=== PATIENT | female | born 1990 | race Caucasian/White ===

== ENCOUNTER 2017-09-24 14:17 | Inpatient (IN) | payer OTHER ==
[~2017-09-24] VITALS: Ht 152.4 cm; Wt 94.0 kg
[~2017-09-24 14:17] MED LIST: CELEBREX; CELECOXIB200 MG PO; DOXEPIN HCL25 MG PO; NAPROXEN500 MG PO; PHENDIMETRAZIN105 MG PO; VENTOLIN HFA18 GM INH
--- NOTE | 2017-09-25 08:13 | PR ---
[facility] [address] [facility] [place], [place] [address] Signed Progress Notes IP Datetime Report Generated by CPN: 09/25/2017 08:13 PROGRESS NOTES: [id number] Impression: Normal progression of labor Procedures: Artificial ROM Plan: Continue present management; Anticipate Vaginal Delivery Informed Consent Obtain: Induction of Labor VITAL SIGNS: [id number] Vital Signs: Reviewed; Within Normal Limits VS Notable Details: No severe range BPs EXAM: [id number] Dilatation: 3.0 Effacement: 75 Station: -2 Uterine Contractions: irregular MEMBRANES: [id number] Pooling: Negative Membrane Status: Ruptured Amniotic Fluid Color: Clear ROM Note: KATHERINE without difficulty, head well applied Comments: Beginning to get more uncomfortable, would like Epidural later Fetus A: [id number] FHR Baseline: 120 Variability: Moderate 6-25bpm Accelerations: 15X15 Decelerations: None FHR Category: Category I Presentation: Vertex Comments on Fetus A: No evidence of metabolic acidosis Fetus B: [id number] Signing Physician: Grupo Rivas MD Copies: ~ *Electronically Signed* 09/25/17 0813 GRUPO RIVAS MD PATIENT NAME: MARCO A DAVID PROGRESS NOTE DATE OF : 88 PHYSICIAN: GRUPO RIVAS MD RPT #: [id number] REPORT IS CONFIDENTIAL AND NOT TO BE RELEASED WITHOUT AUTHORIZATION
--- NOTE | 2017-09-25 12:07 | PR ---
[facility] [address] [facility] [place], [place] [address] Signed Progress Notes IP Datetime Report Generated by CPN: 09/25/2017 12:07 PROGRESS NOTES: [id number] Impression: Normal progression of labor Procedures: Artificial ROM Plan: Continue present management; Anticipate Vaginal Delivery Informed Consent Obtain: Induction of Labor VITAL SIGNS: [id number] Vital Signs: Reviewed; Within Normal Limits VS Notable Details: No severe range BPs EXAM: [id number] Dilatation: 9.0 Effacement: 95 Station: -1 Uterine Contractions: every 2-3 minues MEMBRANES: [id number] Pooling: Negative Membrane Status: Ruptured Amniotic Fluid Color: Clear ROM Note: KATHERINE without difficulty, head well applied Comments: Tolerating contractions OK with Epidural Fetus A: [id number] FHR Baseline: 120 Variability: Moderate 6-25bpm Accelerations: 15X15 Decelerations: Late FHR Category: Category I Presentation: Vertex Comments on Fetus A: occaisonal late decel but good variability with accelerations Fetus B: [id number] Signing Physician: Bonilla Rivas MD Copies: ~ *Electronically Signed* 09/25/17 1207 BONILLA RIVAS MD PATIENT NAME: MARCO A DAVID PROGRESS NOTE DATE OF : 88 PHYSICIAN: BONILLA RIVAS MD RPT #: [id number] REPORT IS CONFIDENTIAL AND NOT TO BE RELEASED WITHOUT AUTHORIZATION
--- NOTE | 2017-09-25 12:22 | PR ---
[facility] [address] [facility] [place] [place] [address] Signed Progress Notes IP Datetime Report Generated by CPN: 09/25/2017 12:22 PROGRESS NOTES: [id number] Impression: Normal progression of labor Procedures: Artificial ROM Plan: Continue present management Other Plans: Start pushing Informed Consent Obtain: Induction of Labor VITAL SIGNS: [id number] Vital Signs: Reviewed; Within Normal Limits VS Notable Details: No severe range BPs EXAM: [id number] Dilatation: 10.0 Effacement: 100 Station: 0 Uterine Contractions: every 2-3 minues MEMBRANES: [id number] Pooling: Negative Membrane Status: Ruptured Amniotic Fluid Color: Clear ROM Note: KATHERINE without difficulty, head well applied Comments: Beginning to push, Epidural working partially, but patient handling well Fetus A: [id number] FHR Baseline: 120 Variability: Moderate 6-25bpm Accelerations: 15X15 Decelerations: Late FHR Category: Category I Presentation: Vertex Other Presentation: VARUN Comments on Fetus A: occaisonal late decel but good variability with accelerations Fetus B: [id number] Signing Physician: Grupo Rivas MD Copies: ~ *Electronically Signed* 09/25/17 1222 GRUPO RIVAS MD PATIENT NAME: MARCO A DAVID PROGRESS NOTE DATE OF : 88 PHYSICIAN: GRUPO RIVAS MD RPT #: [id number] REPORT IS CONFIDENTIAL AND NOT TO BE RELEASED WITHOUT AUTHORIZATION
--- NOTE | 2017-09-26 12:08 | PR ---
[facility] [address] [facility] [place] [address] Signed PP Progress Notes Datetime Report Generated by CPN: 09/26/2017 12:08 SUBJECTIVE: [id number] Pain: Within normal limits Nausea/Vomiting: Denies Vital Signs: [id number] Vital Signs: Reviewed; Within Normal Limits Notable Details: PP Hgb/Hct = 9.3/27.8 EXAM: [id number] Abdomen/Uterus: Normal Lochia: Normal Extremities: Normal IMPRESSION/PLAN/PROCEDURES: [id number] Impression: Normal progression Plan: Discharge Procedures: None Progress Notes: Doing well, wants to go home today Signing Physician: Bonilla Rivas MD Copies: ~ *Electronically Signed* 09/26/17 1208 BONILLA RIVAS MD PATIENT NAME: MARCO A DAVID PROGRESS NOTE DATE OF : 88 PHYSICIAN: BONILLA RIVAS MD RPT #: [id number] REPORT IS CONFIDENTIAL AND NOT TO BE RELEASED WITHOUT AUTHORIZATION
== END 2017-09-26 13:55 | disposition home or self-care (01) | DRG 775 ==
LOC: FBCO 14:17 → FBC 17:05
PROVIDERS: ADMIT Obstetrics & Gynecology
PROC: 3E033VJ Introduction of Other Hormone into Peripheral Vein, Percutaneous Approach (ICD-10-PCS; principal; 2017-09-25)
PROC: 10E0XZZ Delivery of Products of Conception, External Approach (ICD-10-PCS; principal; 2017-09-25)
PROC: 10907ZC Drainage of Amniotic Fluid, Therapeutic from Products of Conception, Via Natural or Artificial Opening (ICD-10-PCS; principal; 2017-09-25)
PROC: 3E0R3BZ Introduction of Anesthetic Agent into Spinal Canal, Percutaneous Approach (ICD-10-PCS; 2017-09-25)
PROC: 00HU33Z Insertion of Infusion Device into Spinal Canal, Percutaneous Approach (ICD-10-PCS; 2017-09-25)
DX: O13.4 Gestational [pregnancy-induced] hypertension without significant proteinuria, complicating childbirth (principal); Z37.0 Single live birth; Z3A.38 38 weeks gestation of pregnancy; K21.9 Gastro-esophageal reflux disease without esophagitis; O99.62 Diseases of the digestive system complicating childbirth; O69.81X0 Labor and delivery complicated by cord around neck, without compression, not applicable or unspecified; O14.94 Unspecified pre-eclampsia, complicating childbirth
CPT/HCPCS: 01960; 36415; 59025; 80053; 82565; 82570; 84156; 84450; 84520; 84550; 85025; 85027; 99213; J2590; J2795; J7120

== ENCOUNTER 2018-10-02 12:10 | Emergency (ER) | payer OTHER ==
[~2018-10-02] VITALS: Ht 152.4 cm; Wt 93.9 kg
--- OUTSIDE RECORDS SUMMARY | ~2018-10-02 | XMS | Clinical Summary ---
Demographics + + + | Address | [address] | | | [place] [address] | + + + | Home Phone | | + + + | Preferred Language | Unknown | + + + | Marital Status | Unknown | + + + | Episcopalian Affiliation | Unknown | + + + | Race | Unknown | + + + | Ethnic Group | Unknown | + + + Author + + + | Author | [facility] [employer] | + + + | Organization | [facility] [employer] | + + + | Address | Unknown | + + + | Phone | Unavailable | + + + Support +--------+ +---------+ + | Name | Relationship | Address | Phone | +--------+ +---------+ + | One,No | ECON | Unknown | | +--------+ +---------+ + Care Team Providers + +------+ + | Care Early Childhood Associate Name | Role | Phone | + +------+ + PP | Unavailable | + +------+ + Allergies Not on File Current Medications Not on file Active Problems Not on file Social History + +-------+ +--------+------+ | Tobacco [...] on file | | + + + Plan of Treatment + + + + + | Health Maintenance | Due Date | Last Done | Comments | + + + + + | Vaccine: | | | | | Dtap/Tdap/Td (1 - | 9 | | | | Tdap) | | | | + + + + + | Cervical Cancer | | | | | Screening (Pap) | 1 | | | + + + + + | Vaccine: Influenza | | | | | (#1) | 8 | | | + + + + + Results Not on filefrom Last 3 Months"
--- OUTSIDE RECORDS SUMMARY | ~2018-10-02 | XMS | Clinical Summary ---
Demographics + + + | Address | [address] | | | [place] [address] | + + + | Home Phone | | + + + | Preferred Language | Unknown | + + + | Marital Status | Unknown | + + + | Presybeterian Affiliation | Unknown | + + + | Race | Unknown | + + + | Ethnic Group | Unknown | + + + Author + + + | Author | [facility] [employer] | + + + | Organization | [facility] [employer] | + + + | Address | Unknown | + + + | Phone | Unavailable | + + + Support +--------+ +---------+ + | Name | Relationship | Address | Phone | +--------+ +---------+ + | One,No | ECON | Unknown | | +--------+ +---------+ + Care Team Providers + +------+ + | Care Temperature Logging Operator Name | Role | Phone | + [...]
--- OUTSIDE RECORDS SUMMARY | ~2018-10-02 | XMS | Clinical Summary ---
Demographics + + + | Address | [address] | | | [place] [address] | + + + | Home Phone | | + + + | Preferred Language | Unknown | + + + | Marital Status | Single | + + + | Sikh Affiliation | Unknown | + + + | Race | Unknown | + + + | Ethnic Group | Unknown | + + + Author + + + | Author | [facility] | | | and [place] | + + + | Organization | [facility] | | | and [place] | + + + | Address | Unknown | + + + | Phone | Unavailable | + + + Support + + +---------+ + | Name | Relationship | Address | Phone | + + +---------+ + | Isabelle David | ECON | Unknown | | + + +---------+ + Care Team Providers + +------+ + | Care Dye Weigher Helper Name | Role | Phone | + +------+ + | Grupo Mario MD | PP | Unavailable | + +------+ + Allergies + + [...] | + + + + + + Current Medications + + +--------+---------+------+------+-------+ | Prescription | Sig. | Disp. | Refills | Star | End | Statu | | | | | | t | Date | s | | | | | | Date | | | + + +--------+---------+------+------+-------+ | 27-0.8 mg | Take 1 tablet by | | | | | Activ | | multivitamin tablet | mouth Daily. | | | | | e | + + +--------+---------+------+------+-------+ | predniSONE | Take 10 mg by mouth | | | | | Activ | | (DELTASONE) 10 mg | Daily. | | | | | e | | tablet | | | | | | | + + +--------+---------+------+------+-------+ | ranitidine | Take 25 mg by mouth | | | | | Activ | | (ZANTAC) 25 MG | 2 times daily. | | | | | e | | effervescent tablet | | | | | | | + + +--------+---------+------+------+-------+ | | Take 1-2 tablets by | 42 | 0 | 09/1 | | Activ | | HYDROcodone-acetamin | mouth every 4 hours | tablet | | 8/20 | | e | | ophen (NORCO) 5-325 | as needed for Pain. | | | 14 | | | | mg per tablet | | | | | | | + + +--------+---------+------+------+-------+ Active Problems + + + | Problem | Noted Date | + + + | Delivery normal | 03/20/2014 | + + + | Rheumatoid arthritis (HCC) | 03/20/2014 | + + + Family History + + [...] Filed Vital Signs + + + + | Vital Sign | Reading | Time Taken | + + + + | Blood Pressure | 137/80 | 03/20/2014799 PDT | + + + + | Pulse | 75 | 03/20/2014799 PDT | + + + + | Temperature | 36 C (96.8 F) | 03/20/2014799 PDT | + + + + | Respiratory Rate | 18 | 03/20/2014799 PDT | + + + + | Oxygen Saturation | 100% | 03/18/2014 2315 PDT | + + + + | Inhaled Oxygen | - | - | | Concentration | | | + + + + | Weight | 82.6 kg (182 lb) | 03/18/20141323 PDT | + + + + | Height | 157.5 cm (5' 2") | 03/18/20141323 PDT | + + + + | Body Mass Index | 33.29 | 03/18/20141323 PDT | + + + + Plan of Treatment [...] Vaccine: Influenza | | | | | (Season Ended) | 9 | | | + + + + + Results Not on filefrom Last 3 Months Insurance + +--------+ +--------+ +---------+ | Payer | Benefi | Subscriber | Type | Phone | Address | | | t Plan | ID | | | | | | / | | | | | | | Group | | | | | + +--------+ +--------+ +---------+ | MEDICAID [place] | MEDICA | [id number] | Medica | [phone] | | | ID | | id | [id number] | | | | [place] | | | | | | | [place] | | | | | + +--------+ +--------+ +---------+ + +--------+ +--------+ + + | Guarantor Name | Accoun | Relation to | Date | Phone | Billing Address | | | t Type | Patient | of | | | | | | | | | | + +--------+ +--------+ + + | MARCO A DAVID | Person | Self [birth year] Home: | [address] | | [place] | [place] | | 1990 | [phone] | [place], [place] | | | [place] | | | [phone] | + +--------+ +--------+ + +
--- OUTSIDE RECORDS SUMMARY | ~2018-10-02 | XMS | Clinical Summary ---
Demographics + + + | Address | [address] | | | [place] [address] | + + + | Home Phone | | + + + | Preferred Language | Unknown | + + + | Marital Status | Single | + + + | Taoist Affiliation | Unknown | + + + | Race | Unknown | + + + | Ethnic Group | Unknown | + + + Author + + + | Author | [facility] | | | and [place] | + + + | Organization | [facility] | | [...] Team Providers + +------+ + | Care Wool Fleece Grader Name | Role | Phone | + [...] +---------+ | MEDICAID [place] | MEDICA | [id number] | Medica | [phone] | | [...] [place] | | 1990 | [phone] | [place], [place] | | | [place] | | | [phone] | [phone] | + +--------+ +--------+ + +
--- OUTSIDE RECORDS SUMMARY | 2018-10-02 12:14 | XMS ---
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 Saad has no Care Guidelines for this patient. Carlos VISIT COUNT (12 MO.) 1 CHRISTY Black TOTAL 1 NOTE: Visits indicate total known visits. ED/UCC VISIT TRACKING (12 MO.) 10/02/2018 12:11 CHRISTY [facility] [place] TYPE: Emergency COMPLAINT: - CHEST PAIN/POSS RIGHT ARM INFECTION/RASH INPATIENT VISIT TRACKING (12 MO.) No inpatient visits to display in this time frame [email or web address]
[2018-10-02] MEDS ORDERED: OMEPRAZOLE20 MG PO (12:32)
--- NOTE | 2018-10-02 15:31 | EKG ---
[facility] [address] [facility] [place] [address] Signed Sinus rhythm with short OK Nonspecific T wave abnormality Abnormal ECG No previous ECGs available Confirmed by TOPHER CAMEJO DO ([id number]) on 10/02/2018 3:31:43 PM Electronically Signed By: TOPHER CAMEJO DO 10/02/18 1531 PATIENT NAME: MARCO A DAVID Electrocardiogram DATE OF : 88 PHYSICIAN: TOPHER CAMEJO DO REPORT #: [id number] REPORT IS CONFIDENTIAL AND NOT TO BE RELEASED WITHOUT AUTHORIZATION
[2018-10-02] MEDS ORDERED: KEFLEX500 MG PO (15:39)
== END 2018-10-02 15:53 | disposition home or self-care (01) ==
LOC: ED 12:10
DX: R07.89 Other chest pain (principal); L03.113 Cellulitis of right upper limb; M06.9 Rheumatoid arthritis, unspecified; Z88.1 Allergy status to other antibiotic agents; Z88.2 Allergy status to sulfonamides; Z79.899 Other long term (current) drug therapy
CPT/HCPCS: 71046; 80053; 84484; 85025; 85379; 93005; 93010; 99283-25

== ENCOUNTER 2020-01-20 15:43 | Inpatient (IN) | payer OTHER ==
[~2020-01-20] VITALS: Ht 154.9 cm; Wt 83.0 kg
--- OUTSIDE RECORDS SUMMARY | ~2020-01-20 | XMS | Encounter Summary ---
Demographics + + + | Address | [address] | | | [place] [address] | + + + | Home Phone | | + + + | Preferred Language | Unknown | + + + | Marital Status | Single | + + + | Mormonism Affiliation | Unknown | + + + | Race | Unknown | + + + | Ethnic Group | Unknown | + + + Author + + + | Author | [facility] | | | and [place] | + + + | Organization | [facility] | | | and [place] | + + + | Address | Unknown | + + + | Phone | Unavailable | + + + Support + + +---------+ + | Name | Relationship | Address | Phone | + + +---------+ + | Isabelle Juarez | ECON | Unknown | | + + +---------+ + Care Team Providers + +------+ + | Care Java Technical Manager Name | Role | Phone | + +------+ + | Sincere Haddad | PCP | | + +------+ + Encounter Details +--------+ + + + + | Date | Type | Department | Care Team | Description | +--------+ + + + + | 08/16/ | Orders Only | [facility] | Sudhir Bowles | Rheumatoid arthritis | | 2020 | | RHEUMATOLOGY [address] | MD [address]ama [address] | of multiple sites | | | | [address] | [address] | with negative | | | | [place] | [place] [address] | rheumatoid factor | | | | [address] | [phone] | (HCC) | | | | [phone] | | | +--------+ + + + + Social History + +-------+ +--------+------+ | Tobacco Use | Types | Packs/Day | Years | Date | | | | | Used | | + +-------+ +--------+------+ | Former Smoker | | | | | + +-------+ +--------+------+ + +---+---+---+ | Smokeless Tobacco: | | | | | Never Used | | | | + +---+---+---+ + + +---------+ + | Alcohol Use | Drinks/Week | oz/Week | Comments | + + +---------+ + | Never | | | | + + +---------+ + + + + + | Alcohol Habits | Answer | Date Recorded | + + + + | How often do you have a drink containing | Never | 08/13/2019 | | alcohol? | | | + + + + | How many drinks containing alcohol do you | Not asked | | | have on a typical day when you are | | | | drinking? | | | + + + + | How often do you have six or more drinks on | Not asked | | | one occasion? | | | + + + + + + + | Sex Assigned at | Date Recorded | | | | + + + | Not on file | | + + + documented as of this encounter Functional Status + + + + | Functional Status | Response | Date of Assessment | + + + + | Are you deaf or do you have serious | No | 03/18/2014 | | difficulty hearing? | | | + + + + | Are you blind or do you have serious | No | 03/18/2014 | | difficulty seeing, even when wearing | | | | glasses? | | | + + + + | Do you have serious difficulty walking or | No | 03/18/2014 | | climbing stairs? (5 years old or older) | | | + + + + | Do you have difficulty dressing or bathing? | No | 03/18/2014 | | (5 years old or older) | | | + + + + | Because of a physical, mental, or emotional | No | 03/18/2014 | | condition, do you have difficulty doing | | | | errands alone such as visiting a doctor's | | | | office or shopping? [15 years old or | | | | older)] | | | + + + + + + + + | Cognitive Status | Response | Date of Assessment | + + + + | Because of a physical, mental, or emotional | No | 03/18/2014 | | condition, do you have serious difficulty | | | | concentrating, remembering, or making | | | | decisions? (5 years old or older) | | | + + + + documented as of this encounter Plan of Treatment Not on filedocumented as of this encounter Procedures + +--------+ + + + | Procedure Name | Priori | Date/Time | Associated Diagnosis | Comments | | | ty | | | | + +--------+ + + + | URVASHI NG | Routin | 08/16/2019 | Rheumatoid | Results for this | | | e | 10:29 AM | arthritis of | procedure are in the | | | | PST | multiple sites with | results section. | | | | | negative rheumatoid | | | | | | factor (HCC) | | + +--------+ + + + | HEPATITIS C AB | Routin | 08/16/2019 | Rheumatoid | Results for this | | | e | 10:29 AM | arthritis of | procedure are in the | | | | PST | multiple sites with | results section. | | | | | negative rheumatoid | | | | | | factor (HCC) | | + +--------+ + + + | SEDIMENTATION RATE | Routin | 08/16/2019 | Rheumatoid | Results for this | | | e | 10:29 AM | arthritis of | procedure are in the | | | | PST | multiple sites with | results section. | | | | | negative rheumatoid | | | | | | factor (HCC) | | + +--------+ + + + | HEPATITIS B CORE AB, | Routin | 08/16/2019 | Rheumatoid | Results for this | | TOTAL | e | 10:29 AM | arthritis of | procedure are in the | | | | PST | multiple sites with | results section. | | | | | negative rheumatoid | | | | | | factor (HCC) | | + +--------+ + + + | HEPATITIS B SURFACE | Routin | 08/16/2019 | Rheumatoid | Results for this | | AG | e | 10:29 AM | arthritis of | procedure are in the | | | | PST | multiple sites with | results section. | | | | | negative rheumatoid | | | | | | factor (HCC) | | + +--------+ + + + | CBC WITH | Routin | 08/16/2019 | Rheumatoid | Results for this | | DIFFERENTIAL | e | 10:29 AM | arthritis of | procedure are in the | | | | PST | multiple sites with | results section. | | | | | negative rheumatoid | | | | | | factor (HCC) | | + +--------+ + + + | C-REACTIVE PROTEIN | Routin | 08/16/2019 | Rheumatoid | Results for this | | | e | 10:29 AM | arthritis of | procedure are in the | | | | PST | multiple sites with | results section. | | | | | negative rheumatoid | | | | | | factor (HCC) | | + +--------+ + + + | COMPREHENSIVE | Routin | 08/16/2019 | Rheumatoid | Results for this | | METABOLIC PANEL | e | 10:29 AM | arthritis of | procedure are in the | | | | PST | multiple sites with | results section. | | | | | negative rheumatoid | | | | | | factor (HCC) | | + +--------+ + + + documented in this encounter Results CBC with Differential (08/16/2019 10:29 AM PST) + + + + + + | Component | Value | Ref Range | Performed | Pathologist | | | | | At | Signature | + + + + + + | WBC | 9.02 | 3.80 - 11.00 | REFERENCE | | | | | K/uL | LAB | | | | | | [facility] | | | | | | LABORATORY | | + + + + + + | Red Blood | 3.98 | 3.70 - 5.10 | REFERENCE | | | Cells | | M/uL | LAB | | | | | | [facility] | | | | | | LABORATORY | | + + + + + + | Hemoglobin | 12.6 | 11.3 - 15.5 | REFERENCE | | | | | g/dL | LAB | | | | | | [facility] | | | | | | LABORATORY | | + + + + + + | Hematocrit | 35.6 | 34.0 - 46.0 % | REFERENCE | | | | | | LAB | | | | | | [facility] | | | | | | LABORATORY | | + + + + + + | MCV | 89.4 | 80.0 - 100.0 fl | REFERENCE | | | | | | LAB | | | | | | [facility] | | | | | | LABORATORY | | + + + + + + | MCH | 31.7 | 27.0 - 34.0 pg | REFERENCE | | | | | | LAB | | | | | | [facility] | | | | | | LABORATORY | | + + + + + + | MCHC | 35.4 | 32.0 - 35.5 | REFERENCE | | | | | g/dL | LAB | | | | | | [facility] | | | | | | LABORATORY | | + + + + + + | RDW-SD | 41.1 | 37 - 53 fl | REFERENCE | | | | | | LAB | | | | | | [facility] | | | | | | LABORATORY | | + + + + + + | Platelet | 165 | 150 - 400 K/uL | REFERENCE | | | Count | | | LAB | | | | | | [facility] | | | | | | LABORATORY | | + + + + + + | MPV | 12.7Comment: NO NORMAL | fl | REFERENCE | | | | RANGE ESTABLISHED | | LAB | | | | | | [facility] | | | | | | LABORATORY | | + + + + + + | Diff Type | AUTOMATED | | REFERENCE | | | | | | LAB | | | | | | [facility] | | | | | | LABORATORY | | + + + + + + | % nRBC | 0.0 | 0 /100WBC | REFERENCE | | | | | | LAB | | | | | | [facility] | | | | | | LABORATORY | | + + + + + + | % | 77.40 | % | REFERENCE | | | Neutrophils | | | LAB | | | | | | [facility] | | | | | | LABORATORY | | + + + + + + | IMMATURE | 0.20 | % | REFERENCE | | | GRANULOCYTE | | | LAB | | | | | | [facility] | | | | | | LABORATORY | | + + + + + + | % | 18.10 | % | REFERENCE | | | Lymphocytes | | | LAB | | | | | | [facility] | | | | | | LABORATORY | | + + + + + + | Monocyte % | 3.80 | % | REFERENCE | | | | | | LAB | | | | | | [facility] | | | | | | LABORATORY | | + + + + + + | Eosinophils | 0.40 | % | REFERENCE | | | % | | | LAB | | | | | | [facility] | | | | | | LABORATORY | | + + + + + + | Basophils % | 0.10 | % | REFERENCE | | | | | | LAB | | | | | | [facility] | | | | | | LABORATORY | | + + + + + + | Neutrophils | 6.98 | 1.90 - 7.40 | REFERENCE | | | , Absolute | | K/uL | LAB | | | | | | [facility] | | | | | | LABORATORY | | + + + + + + | IMMATURE | 0.02Comment: NOTE NEW | 0.00 - 0.07 | REFERENCE | | | GRANS AB | REFERENCE RANGE | K/uL | LAB | | | | | | [facility] | | | | | | LABORAT[facility] | | + + + + + + | Absolute | 1.63 | 1.00 - 3.90 | REFERENCE | | | Lymphocytes | | K/uL | LAB | | | | | | [facility] | | | | | | LABORATORY | | + + + + + + | Absolute | 0.34 | 0.00 - 0.80 | REFERENCE | | | Monocytes | | K/uL | LAB | | | | | | [facility] | | | | | | LABORAT[facility] | | + + + + + + | Eosinophils | 0.04 | 0.00 - 0.50 | REFERENCE | | | , Absolute | | K/uL | LAB | | | | | | [facility] | | | | | | LABORATORY | | + + + + + + | Basophils, | 0.01Comment: Testing | 0.00 - 0.10 | REFERENCE | | | Absolute | performed at [facility];[address] | K/uL | LAB | | | | [address] | | [facility] | | | | [address];[place] [address] | | LABORATORY | | + + + + + + + + | Specimen | + + | Blood | + + + + + + + | Performing | Address | City/State/Zipcode | Phone Number | | Organization | | | | + + + + + | REFERENCE LAB | [address] | [place] | [phone] | | [facility] | [address] | [address] | | | LABORATORY | | | | + + + + + | REFERENCE LAB | [address] | [place] | | | [facility] | [address] | [address] | | | LABORATORY | | | | + + + + + Comprehensive Metabolic Panel (08/16/2019 10:29 AM PST) + + + + + + | Component | Value | Ref Range | Performed | Pathologist | | | | | At | Signature | + + + + + + | Na | 140 | 135 - 145 | REFERENCE | | | | | mmol/L | LAB | | | | | | [facility] | | | | | | LABORATORY | | + + + + + + | K | 3.7 | 3.5 - 4.9 | REFERENCE | | | | | mmol/L | LAB | | | | | | [facility] | | | | | | LABORATORY | | + + + + + + | Cl | 113 (H) | 99 - 109 mmol/L | REFERENCE | | | | | | LAB | | | | | | [facility] | | | | | | LABORATORY | | + + + + + + | CO2 | 19 (L) | 23 - 32 mmol/L | REFERENCE | | | | | | LAB | | | | | | [facility] | | | | | | LABORATORY | | + + + + + + | Anion Gap | 12 | 5 - 20 mmol/L | REFERENCE | | | | | | LAB | | | | | | [facility] | | | | | | LABORATORY | | + + + + + + | Glucose | 88 | 65 - 99 mg/dL | REFERENCE | | | | | | LAB | | | | | | [facility] | | | | | | LABORATORY | | + + + + + + | BUN | 6 (L) | 8 - 25 mg/dL | REFERENCE | | | | | | LAB | | | | | | [facility] | | | | | | LABORATORY | | + + + + + + | Creatinine | 0.5 | 0.50 - 1.00 | REFERENCE | | | | | mg/dL | LAB | | | | | | [facility] | | | | | | LABORATORY | | + + + + + + | BUN/Creatin | 12 | | REFERENCE | | | ine Ratio | | | LAB | | | | | | [facility] | | | | | | LABORATORY | | + + + + + + | Calcium | 9.2 | 8.5 - 10.5 | REFERENCE | | | | | mg/dL | LAB | | | | | | [facility] | | | | | | LABORATORY | | + + + + + + | Protein, | 6.8 | 6.3 - 8.2 g/dL | REFERENCE | | | Total | | | LAB | | | | | | [facility] | | | | | | LABORATORY | | + + + + + + | Albumin | 3.2 (L) | 3.6 - 5.0 g/dL | REFERENCE | | | | | | LAB | | | | | | [facility] | | | | | | LABORATORY | | + + + + + + | Globulin | 3.6 | 1.3 - 4.9 g/dL | REFERENCE | | | | | | LAB | | | | | | [facility] | | | | | | LABORATORY | | + + + + + + | A/G Ratio | 0.9 (L) | 1.0 - 2.4 | REFERENCE | | | | | | LAB | | | | | | [facility] | | | | | | LABORATORY | | + + + + + + | BILIRUBIN, | 0.3 | 0.1 - 1.5 mg/dL | REFERENCE | | | TOTAL | | | LAB | | | | | | [facility] | | | | | | LABORATORY | | + + + + + + | ALK PHOS | 61 | 35 - 115 U/L | REFERENCE | | | | | | LAB | | | | | | [facility] | | | | | | LABORATORY | | + + + + + + | AST | 10 | 10 - 45 U/L | REFERENCE | | | | | | LAB | | | | | | [facility] | | | | | | LABORATORY | | + + + + + + | ALT | 16 | 10 - 65 U/L | REFERENCE | | | | | | LAB | | | | | | [facility] | | | | | | LABORATORY | | + + + + + + | Estimated | >60Comment: GFR <60: | >60 | REFERENCE | | | GFR | CHRONIC KIDNEY DISEASE, | mL/min/1.73m2 | LAB | | | | IF FOUND OVER A 3 MONTH | | [facility] | | | | PERIOD.GFR <15: KIDNEY | | LABORATORY | | | | FAILURE.FOR | | | | | | AMERICANS, MULTIPLY THE | | | | | | CALCULATED GFR BY | | | | | | 1.210.This eGFR is | | | | | | calculated using the | | | | | | MDRD IDMS traceable | | | | | | equation.Testing | | | | | | performed at [facility];[address] | | | | | | [facility] | | | | | | [facility];[place] [address] | | | | | | | | | | + + + + + + + + | Specimen | + + | Blood | + + + + + + + | Performing | Address | City/State/Zipcode | Phone Number | | Organization | | | | + + + + + | REFERENCE LAB | [address] [place] [address] | [place] | [phone] | | [facility] | [address] | [address] | | | LABORATORY | | | | + + + + + | REFERENCE LAB | [address] [place] [address] | [place] | | | [facility] | [address] | [address] | | | LABORATORY | | | | + + + + + Sedimentation Rate (08/16/2019 10:29 AM PST) + + + + + + | Component | Value | Ref Range | Performed | Pathologist | | | | | At | Signature | + + + + + + | ESR | 26 (H)Comment: Testing | 0 - 20 mm/Hr | REFERENCE | | | | performed at [facility];[address] | | LAB | | | | [place] | | [facility] | | | | [address];[place] [address] | | LABORATORY | | + + + + + + + + | Specimen | + + | Blood | + + + + + + + | Performing | Address | City/State/Zipcode | Phone Number | | Organization | | | | + + + + + | REFERENCE LAB | [address] [place], [place] [address] | [place] | [phone] | | [facility] | [address] | [address] | | | LABORATORY | | | | + + + + + | REFERENCE LAB | [address] [facility] | [place], [place] | | | [facility] | [address] | [address] | | | LABORATORY | | | | + + + + + C-Reactive Protein (08/16/2019 10:29 AM PST) + + + + + + | Component | Value | Ref Range | Performed | Pathologist | | | | | At | Signature | + + + + + + | CRP | 0.7 (H)Comment: Testing | <0.5 mg/dL | REFERENCE | | | | performed at [facility];[address] | | LAB | | | | [place] | | [facility] | | | | [address];[place] [address] | | LABORATORY | | + + + + + + + + | Specimen | + + | Blood | + + + + + + + | Performing | Address | City/State/Zipcode | Phone Number | | Organization | | | | + + + + + | REFERENCE LAB | [address] [facility] | [place] | [phone] | | [facility] | [address] | [address] | | | LABORATORY | | | | + + + + + | REFERENCE LAB | [address] [facility] | [place], [place] | | | [facility] | [address] | [address] | | | LABORATORY | | | | + + + + + Hepatitis C Ab (08/16/2019 10:29 AM PST) + + + + + + | Component | Value | Ref Range | Performed | Pathologist | | | | | At | Signature | + + + + + + | HCV Ab | NON REACTIVEComment: | NR | REFERENCE | | | | Absence of Hepatitis C | | LAB | | | | antibody suggests no | | [facility] | | | | past Hepatitis C virus | | LABORATORY | | | | infection. Since | | | | | | antibody development may | | | | | | be delayed up to 6 | | | | | | months after | | | | | | infection,retesting may | | | | | | be indicated.Testing | | | | | | performed at [facility];[address] | | | | | | [facility] | | | | | | Blvd;[place] [address] | | | | | | | | | | + + + + + + + + | Specimen | + + | Blood | + + + + + + + | Performing | Address | City/State/Zipcode | Phone Number | | Organization | | | | + + + + + | REFERENCE LAB | [address] [place] [address] | [place], [place] | [phone] | | [facility] | [address] | [address] | | | LABORATORY | | | | + + + + + | REFERENCE LAB | [address] [place] [address] | [place], [place] | | | [facility] | [address] | [address] | | | LABORATORY | | | | + + + + + Hepatitis B Surface Ag (08/16/2019 10:29 AM PST) + + + + + + | Component | Value | Ref Range | Performed | Pathologist | | | | | At | Signature | + + + + + + | Hepatitis B | NON REACTIVEComment: | NR | REFERENCE | | | Surface Ag | Testing performed at | | LAB | | | | [facility];[address] [facility] | | [facility] | | | | Blvd;[place] [address] | | LABORATORY | | + + + + + + + + | Specimen | + + | Blood | + + + + + + + | Performing | Address | City/State/Zipcode | Phone Number | | Organization | | | | + + + + + | REFERENCE LAB | [address] [facility] | [place] | [phone] | | [facility] | [address] | [address] | | | LABORATORY | | | | + + + + + | REFERENCE LAB | [address] [facility] | [place], [place] | | | [facility] | [address] | [address] | | | LABORATORY | | | | + + + + + Hepatitis B Core Ab, Total (08/16/2019 10:29 AM PST) + + + + + + | Component | Value | Ref Range | Performed | Pathologist | | | | | At | Signature | + + + + + + | Hepatitis B | NON REACTIVEComment: | NR | REFERENCE | | | Core Ab | Testing performed at | | LAB | | | Total | [facility];[address] [facility] | | [facility] | | | | Blvd;[place] [address] | | LABORATORY | | + + + + + + + + | Specimen | + + | Blood | + + + + + + + | Performing | Address | City/State/Zipcode | Phone Number | | Organization | | | | + + + + + | REFERENCE LAB | [address] [facility] | [place] | [phone] | | [facility] | [address] | [address] | | | LABORATORY | | | | + + + + + | REFERENCE LAB | [address] [facility] | [place], [place] | | | [facility] | [address] | [address] | | | LABORATORY | | | | + + + + + Quantiferon Gold (08/16/2019 10:29 AM PST) + + + + + + | Component | Value | Ref Range | Performed | Pathologist | | | | | At | Signature | + + + + + + | QUANTIFERON | (See Below)Comment: The | | REFERENCE | | | .CRITERIA | QuantiFERON-TB Gold Plus | | LAB | | | | result is determined by | | [facility] | | | | subtractingthe Nil | | LABORATORY | | | | value from either TB | | | | | | antigen (Ag) tube. The | | | | | | mitogen tubeserves as a | | | | | | control for the test. | | | | + + + + + + | TB 1 | 0.10 | IU/mL | REFERENCE | | | Antigen | | | LAB | | | | | | [facility] | | | | | | LABORATORY | | + + + + + + | TB 2 | 0.10 | IU/mL | REFERENCE | | | Antigen | | | LAB | | | | | | [facility] | | | | | | LABORATORY | | + + + + + + | NIL | 0.09 | IU/mL | REFERENCE | | | | | | LAB | | | | | | [facility] | | | | | | LABORATORY | | + + + + + + | Mitogen | 5.06 | IU/mL | REFERENCE | | | | | | LAB | | | | | | [facility] | | | | | | LABORATORY | | + + + + + + | Quantiferon | NegativeComment: The | Negative | REFERENCE | | | TB Gold | specimen received for | | LAB | | | | QuantiFERON testing was | | [facility] | | | | incubated by theordering | | LABORATORY | | | | institution. Specific | | | | | | procedures outlined in | | | | | | ourDirectory of Services | | | | | | and in the package | | | | | | insert for the | | | | | | QuantiFERONGold (In | | | | | | Tube) test must be | | | | | | followed to enable for | | | | | | proper stimulationof | | | | | | cells for the production | | | | | | of interferon | | | | | | gamma.Testing performed | | | | | | at [facility], [address] | | | | | [address], [facility] [address], [facility] | | | | | | [address] | | | | + + + + + + + + | Specimen | + + | Blood | + + + + + + + | Performing | Address | City/State/Zipcode | Phone Number | | Organization | | | | + + + + + | REFERENCE LAB | [address] [place] [address] | [place], [place] | [phone] | | [facility] | [address] | [address] | | | LABORATORY | | | | + + + + + | REFERENCE LAB | [address] [place] [address] | [place], [place] | | | [facility] | [address] | [address] | | | LABORATORY | | | | + + + + + documented in this encounter Visit Diagnoses + + | Diagnosis | + + | Rheumatoid arthritis of multiple sites with negative rheumatoid factor (HCC) | + + documented in this encounter"
--- OUTSIDE RECORDS SUMMARY | ~2020-01-20 | XMS | Encounter Summary ---
Demographics + + + | Address | [address] | | | [place] [address] | + + + | Home Phone | | + + + | Preferred Language | Unknown | + + + | Marital Status | Single | + + + | Synagogue Affiliation | Unknown | + + + | Race | Unknown | + + + | Ethnic Group | Unknown | + + + Author + + + | Author | [facility] | | | and Litana | + + + | Organization | [facility] | | | and Litana [...] Team Providers + +------+ + | Care Foreign Agent Name | Role | Phone | + +------+ + | Grupo Mario MD | PCP | | + +------+ + Reason for Referral Evaluate & Treat (Routine) +--------+ + + + + + | Status | Reason | Specialty | Diagnoses / | Referred By | Referred To | | | | | Procedures | Contact | Contact | +--------+ + + + + + | Closed | Specialty | | Diagnoses | Trevor, | | | | Services | Services / | Encounter | Ruperto Alcazar MD | | | | Required | | for breast | [id number] | | | | | and | feeding | [place] | | | | | | counseling | [place] | | | | | | | [place], | | | | | | | [place] [address] | | | | | | | Phone: | | | | | | | [phone] | | | | | | | Fax: | | | | | | | [phone] | | +--------+ + + + + + (Routine) +--------+ + + + + + | Status | Reason | Specialty | Diagnoses / | Referred By | Referred To | | | | | Procedures | Contact | Contact | +--------+ + + + + + | Closed | Specialty | Obstetrics | Diagnoses | Trevor, | | | | Services | and | Encounter | Ruperto Alcazar MD | | | | Required | Gynecology | for breast | [address] | | | | | | feeding | [place] | | | | | | counseling | [place] | | | | | | | [place] | | | | | | | [place] [address] | | | | | | | Phone: | | | | | | | [phone] | | | | | | | Fax: | | | | | | | [phone] | | +--------+ + + + + + Reason for Visit Auth/Cert +--------+--------+ + + + + | Status | Reason | Specialty | Diagnoses / | Referred By | Referred To | | | | | Procedures | Contact | Contact | +--------+--------+ + + + + | Closed | | | | | | +--------+--------+ + + + + Encounter Details +--------+ + + + + | Date | Type | Department | Care Team | Description | +--------+ + + + + | 03/18/ | Hospital | [facility] | [facility], | Encounter for breast | | 2013 - | Encounter | [facility] | [address] | feeding counseling | | | | [address] | [place], [place] | (Primary Dx) | | 03/20/ | | [place], [place] | [address] | | | 2013 | | [address] | | | | | | [phone] | Ruperto Gibson, | | | | | | [address] | | | | | | [place] | | | | | | [place] [address] | | | | | | [phone] | | | | | | | | +--------+ + + + + Social History + +-------+ +--------+------+ | Tobacco Use | Types | Packs/Day | Years | Date | | | | | Used | | + +-------+ +--------+------+ | Never Assessed | | | | | + +-------+ +--------+------+ + + + | Sex Assigned at | Date Recorded | | | | + + + | Not on file | | + + + documented as of this encounter Last Filed Vital Signs + + + + + | Vital Sign | Reading | Time Taken | Comments | + + + + + | Blood Pressure | 137/80 | 03/20/2014 8:00 AM | | | | | PDT | | + + + + + | Pulse | 75 | 03/20/2014 8:00 AM | | | | | PDT | | + + + + + | Temperature | 36 C (96.8 F) | 03/20/2014 8:00 AM | | | | | PDT | | + + + + + | Respiratory Rate | 18 | 03/20/2014 8:00 AM | | | | | PDT | | + + + + + | Oxygen Saturation | 100% | 03/18/2014 11:15 PM | | | | | PDT | | + + + + + | Inhaled Oxygen | - | - | | | Concentration | | | | + + + + + | Weight | 82.6 kg (182 lb) | 03/18/2014 1:24 PM | | | | | PDT | | + + + + + | Height | 157.5 cm (5' 2") | 03/18/2014 1:24 PM | | | | | PDT | | + + + + + | Body Mass Index | 33.29 | 03/18/2014 1:24 PM | | | | | PDT | | + + + + + documented in this encounter Functional Status + + + [...] + + documented as of this encounter Discharge Summaries Grupo Mario MD - 03/20/2014 7:03 AM PDT Obstetric Discharge summary | Name Socorro Juarez : 1990 Admitted 03/18/2014 13:20 Discharge date: 03/20/2014 PCP Grupo Mario Admission dx No admission diagnoses for hospital encounter. MIGNON 03/26/2014, Alternate MIGNON Entry Delivered by RUPERTO GIBSON , Vaginal, Spontaneous Delivery Information for the patient's : Shakira Juarez [[id number]] Delivery Date: 03/18/2014 Delivery Time: 2108 Baby: Shakira Juarez Sex: male Weight: 7 lb 9.8 oz (3453 g) Height: 21.5" Head circumference: 35.6 cm APGARS One minute Five minutes Ten minutes Totals: 8 9 Anesthesia Epidural Lacerations None Discharged Condition: fair Diet: regular diet and Regular Discharge Medications: Current Discharge Medication List START taking these medications Details HYDROcodone-acetaminophen (NORCO) 5-325 mg per tablet Take 1-2 tablets by mouth every 4 abhi rs as needed for Pain. Qty: 42 tablet, Refills: 0 CONTINUE these medications which have NOT CHANGED Details predniSONE (DELTASONE) 10 mg tablet Take 10 mg by mouth Daily. 27-0.8 mg multivitamin tablet Take 1 tablet by mouth Daily. ranitidine (ZANTAC) 25 MG effervescent tablet Take 25 mg by mouth 2 times daily. Rh Immune globulin given: not applicable Rubella vaccine given: no Discharge Date: 03/20/2014 Plan: Patient will continue with prednisone 15 mg daily. She will us hydrocodone prn for RA pain, L shoulder, wrists, hands bilaterally. Follow-up follow up in 1 week in clinic to assess pain levels, anticipated flare of RA. Electronically signed: Grupo Mario MD 03/20/2014 7:03 documented in thi s encounter Discharge Instructions Instructions Koki Bush RN - 03/20/2014Formatting of this note might be different fr om the original. Going home after your delivery Discharge information for moms Take care of yourself Get plenty of rest, and don t be afraid to put a sign on the door saying, Mother an d baby sleeping please come back later. Unplug the phone if you have to. Since you ll be up several times a night feeding your baby, you ll need all the rest you can get. Pretty much every new mom gets a bit of the blues, but strong shifts in your hormones af ter delivery sometimes result in post- depression. If you can t get done the things you need to get done, including taking care of yourse lf or your baby, let us know. Some new moms can t sleep, or sleep all the time, or think t hey ll never be a good mother. If these or similar feelings seem like they might be gettin g the best of you, call us! You re not crazy (we promise), and help is available. Get a flu shot every flu season, and everyone around your baby should also get a flu tracy t (and be up to date on their Tdap - the tetanus/whooping cough booster vaccine). Don't drive while taking narcotics (like hydrocodone or oxycodone). Watch for constipation (especially with narcotics) - you can use docusate or milk of mag nesia if needed. Watch for signs of infection and blood clots Call us if you get any of the following: Vaginal discharge that increases, instead of decreasing a bit every day Normal bleeding decreases over time; Is bright red for 2-3 days (with clots up to the size of golfballs), then [place]-brown for 3-10 days, then Creamy-yellow for 1-2 weeks Worsening pain, swelling, or unusual odor from your vagina; Worsening pain, swelling, or discharge from your incision; Hard red, warm, or painful spots on your breasts; Fevers, chills, or vomiting; Trouble breathing, chest pain or pressure; swelling, redness, or pain in your legs; Steadily worsening belly pain (periodic cramping pain is normal); Bad headaches, changes in your vision (blurriness, black spots); worsening swelling of y our hands, feet, or face. Give yourself time to heal Nothing in your vagina for 4 weeks after giving (no sex, no tampons) If you had a , don t lift anything heavier than your baby for 4 weeks, and do n t drive for 2 weeks. If you need narcotic pain medication, like oxycodone, hydrocodone, Percocet or Vicodin, don t combine it with alcohol, and don t drive after using it. Stitches in the vaginal dissolve within about 4 weeks - they don't need to be removed. Think carefully about contraception Babies are healthiest if they re born at least a year apart We ll discuss control options at your 6 week post- visit, but you can start u sing a mini pill right away, or even get a Depo shot After a Vaginal After having a baby, your body may be very tired. It can take time to recover from a vagina l delivery. You may stay in the hospital or center from 1 to 4 days. Or, you may only need to stay overnight. In some cases, you may be able to go home the same day. Right After the Delivery Your temperature and blood pressure will be taken until they are stable. A nurse or other [facility] provider will observe you as you rest. You may have afterbirth pains. These are cr amps caused by the uterus shrinking. Sanitary pads are used to absorb the discharge of the u terine lining. To ensure that you aren t bleeding too much, the pad will be checked. And t he firmness of your uterus will be checked. To do this, a nurse will gently push down on you r abdomen. If you had anesthesia, you ll be watched closely until you can feel and move yo ur toes. If you have perineal pain (pain between the vagina and anus), an ice pack can help. [facility] While still in the hospital or center, you ll learn how to hold and feed your baby. You ll also be given tips on care, bathing your baby, and instructi on. If you re not planning to breastfeed, discuss your options with your healthcare provid er. Preparing to Go Home You may be anxious to go home as soon as possible. Before you and your baby go home, a [facility] provider will check to be sure you are healthy enough to take care of your baby and y ourself. You re ready to go home when: You can walk to the bathroom without help. You can eat solid food and swallow pills (if needed). You have no sign of infection or other health problems, including fever. Before leaving the hospital or center, you ll be given written instructions for vita e self-care after vaginal delivery. Be sure to follow these instructions carefully. If you h ave questions or concerns, talk about them now. If You Had Stitches You may have received stitches in the skin near your vagina. The stitches might have closed an episiotomy (an incision that enlarges the opening of the vagina). Or you may have needed stitches to repair torn skin. Either way, your stitches should dissolve within weeks. Until then, you can help reduce discomfort, aid healing, and reduce your risk of infection by andie ping the stitches clean. These tips can help: Gently wipe from front to back after you urinate or have a bowel movement. After wiping, spray warm water on the area. Or you can have a sitz bath. This means sitt ing in a tub with a few inches of water in it. Then pat the area dry or use a hairdryer on a cool setting. Do not use soap or any solution except water on the area. You can take a shower unless told not to. Change sanitary pads at least every 2-[address] cold or heat packs on the area as directed by your doctors or nurses. Keep a thin towel between the pack and your skin. Sit on firm seats so the stitches pull less. Follow-Up Schedule a follow-up exam with your healthcare provider for about 6 weeks after carlos kylie. During this exam, your uterus and vaginal area will be checked. Contact your health care provider if you think you or your baby are having any problems. Call Your Healthcare Provider Right Away If You Have: A fever of 100.4F or higher. Bleeding that requires a new sanitary pad after an hour, or large blood clots. Redness, discharge, or incision pain worse than you had in the hospital. Burning, pain, red streaks, or lumpy areas in your breasts. Cracks, blisters, or blood on your nipples. Burning or pain when you urinate. Nausea or vomiting. Dizziness or fainting. Feelings of extreme sadness or anxiety, or a feeling that you don t want to be with yo ur baby. Abdominal pain that isn t relieved with medication. Vaginal discharge that has a bad odor. No bowel movement for 5 days. Redness, warmth, or pain in the lower leg. [id number] [place] [address]. All rights reserve d. This information is not intended as a substitute for professional medical care. Always fo llow your healthcare professional's instructions. . documented in this encounter Medications at Time of Discharge + + + +---------+ + + | Medication | Sig | Dispensed | Refills | Start | End Date | | | | | | Date | | + + + +---------+ + + | 27-0.8 mg | Take 1 tablet by | | 0 | | | | multivitamin tablet | mouth Daily. | | | | | + + + +---------+ + + | ranitidine | Take 25 mg by mouth | | 0 | | | | (ZANTAC) 25 MG | 2 times daily. | | | | | | effervescent tablet | | | | | | + + + +---------+ + + | | Take 1-2 tablets by | 42 | 0 | 03/20/20 | | | HYDROcodone-acetamin | mouth every 4 hours | tablet | | 14 | 0 | | ophen (NORCO) 5-325 | as needed for Pain. | | | | | | mg per tablet | | | | | | + + + +---------+ + + | predniSONE | Take 10 mg by mouth | | 0 | | | | (DELTASONE) 10 mg | Daily. | | | | 9 | | tablet | | | | | | + + + +---------+ + + documented as of this encounter Progress Notes Grupo Mario MD - 03/20/2014 7:06 AM PDTPostpartum progress note | Date of service: 03/20/2014 Subjective Doing well. Feeding baby via Breast. He was slightly fussy last night and mother feels baby would benefit from pumping and bottle feed. Her L shoulder, wrists, hands bilaterally are m ore painful, requiring hydrocodone for pain. Objective Temp: [36 C (96.8 F)-36.7 C (98.1 F)] 36.5 C (97.7 F) Pulse: [75-91] 77 Resp: [17-18] 18 BP: (115-140)/(59-78) 140/78 mmHg Gen NAD CV No murmur, rub, gallop; regular rhythm. Lungs CTAB Abd U~0, non-tender Ext No cord, no unusual edema. L shoulder with nml ROM, no warmth. Hands, wrists with minim al synovitis. Assessment and plan Doing well. Routine care, discharge to home today. Nexplanon at 4-6 weeks. Yoanyd nue hydrocodone for pain, reassess in 1 week. [ Treatment Team: Attending Provider: Grupo Mario MD; Registered Nurse: Threese rizo RN; Registered Nurse: Jasper Alva, CHRISTI ] Emilia Chen RN - 03/19/2014 11:30 PM PDTReport to jasper barraza to assume care.Electronically deidra d by Emilia Garsia RN at 03/20/2014 3:24 AM Jasper Salamanca RN - 4 11:30 PM PDTAssumed care. Report rec'd from Emilia BARRAZA Emilia Chen RN - 03/19/2014 8:15 PM PDTPt r esting in bed. . In good spirits. No need at this time.Electronically s igned by Emilia Garsia RN at 03/20/2014 3:24 AM Emilia Chen R N - 03/19/2014 7:30 PM PDTReport received by Amberly BARRAZA, assumed care. Mirian Kearney RN - 03/19/20 14 3:24 PM PDTPt is having increased right shoulder pain gave oxycodone which provided some relief. Pt is independent in room nursing well. Mirian Kearney RN - 03/19/2014 12:42 PM PDTPt with increa sed pain to right shoulder related to R/A, RX given, discussed pain medications that are duarte ilable to her, will continue to monitor. Electronically signed by Mirian May RN at 0 03/19/2014 12:42 PM Grupo Torres MD - 03/19/2014 9:25 AM PDTFormatting of this not e might be different from the original. progress note | Date of service: 03/19/2014 Subjective Doing well. Feeding baby via breast. Mother breastfed first baby for 2 months, stopped due to use of procardia for PP hypertension. Feels L shoulder and hands are more painful today t fernandes yesterday, but feels it is related to pushing efforts. Objective Temp: [36 C (96.8 F)-37.2 C (99 F)] 36 C (96.8 F) Pulse: [70-116] 75 Resp: [16-18] 18 BP: (115-169)/(59-86) 115/59 mmHg Gen NAD CV No murmur, rub, gallop; regular rhythm. Lungs CTAB Abd U~0, non-tender Ext No cord, no unusual edema. Joints of wrists, mcp, pip, dip w/o significant warmth, eff usion. Recent Results (from the past 24 hour(s)) RUPTURE OF MEMBRANES Component Value Range Amnisure, ROM Negative Negative TYPE AND SCREEN Component Value Range ABO B Rh Type Positive Antibody Screen Negative CBC NO DIFFERENTIAL Component Value Range WBC 10.1 4.0-11.0 K/uL RBC 3.86 3.70-5.20 M/uL Hgb 11.8 11.5-16.0 g/dL Hct 34.9 34.0-47.0 % MCV 90.4 83.0-101.0 fL MCH 30.7 28.0-35.0 pg MCHC 33.9 32.0-36.0 g/dL RDW 13.5 <15.0 % Platelet Count 125 (*) 140-440 K/uL MPV 9.8 CBC NO DIFFERENTIAL Component Value Range WBC 18.1 (*) 4.0-11.0 K/uL RBC 3.72 3.70-5.20 M/uL Hgb 11.4 (*) 11.5-16.0 g/dL Hct 34.0 34.0-47.0 % MCV 91.3 83.0-101.0 fL MCH 30.6 28.0-35.0 pg MCHC 33.5 32.0-36.0 g/dL RDW 13.5 <15.0 % Platelet Count 133 (*) 140-440 K/uL MPV 10.3 Assessment and plan Doing well. History of RA, controlled with prednisone in (maximum dose of 25 mg d aily, most recently 15 mg daily in the 4 weeks prior to delivery). Patient given hydrocorti sone stress dosing during labor X 1 (50mg), will continue 25 mg IV q 8 hour X 2 additional d oses then resume prednisone at 15 mg daily. Otherwise, Routine care. [ Treatment Team: Attending Provider: Grupo Mario MD; Registered Nurse: Therese rizo RN; Registered Nurse: Mirian May RN ] elissadarriusTherese R N - 03/19/2014 2:41 AM PDTDelivered at 2109, viable infant male over an intact perineum. N B placed on mother's abdomen where he was dried and stimulated. Wet linen removed and repla gene with warm dry linen. Jo Ann Lane RN - 03/18/2014 1:47 PM PDTPatient here c/o leaking fluid, no bloody tracy w per patient. UC's since 1999 last evening (03/18). Amnisure swab done and sent to lab. E FM in place. documente d in this encounter H&P Notes Ruperto Gibson MD - 03/18/2014 5:29 PM PDTAdmit Note S-briefly, Ms. Juarez is a 23-year-old 2 para 1 woman at almost 39 weeks gestation who recently moved from [place], to the [facility], to be closer to family. She hamilton s been seen twice at by Dr. Clement at [facility]. Of note is her past history of rheumatoid arthr itis. She was on high doses of prednisone until recently and was advised by her rheumatolog ist to have steroid coverage during labor. No other problems identified prenatally other th an polypharmacy. Medications she has been on chronically include: Tylenol No. 3, cyclobenza berto, hydroxyzine, prednisone, ranitidine and Zofran. Group B strep culture was negative. Patient began experiencing regular uterine activity la evening and has gradually noted cervical change. She was admitted earlier this afternoon in presumed early active labor. O-VSS Cervix: 4/80%/-2; soft and anterior. heart tones: Category 1 tracing. Uterine contractions: Mild to moderate to palpation, occurring every 2-3 minutes. AROM: Clear A/P-intrauterine at approximately 39 weeks gestation in early active labor. Will cover with high school labor. This may be some risk for abstinence syndrome as it is uncle ar, narcotic it has been exposed to during the . Pediatric service will be made aw are. documented in thi s encounter Miscellaneous Notes Pulmonary Function - [facility] - 03/28/2014 12:00 AM PDT lan of Care - [facility] - 03/28/2014 12:00 AM PD T iscellaneous - [facility] - 03/28/2014 12:00 AM PDT npatient Medication Chart - [facility] - 03/28/2014 12:00 AM PDTElectronically sig logan by Sally Dominguez at 03/28/2014 3:09 PM PDTPlan of Care - Koki Bush RN - 03/20/20 1:00 PM PDTProblem: General Plan of Care (Adult, Obstetrics) Goal: Care Plan Shift Summary & Review . Outcome: Goal Achieved Date Met: 03/20/14 Discharge instructions given to patient, patient states understanding of discharge instruct ions and states readiness to assume self care. lan of Care - Jasper King RN - 03/20/2014 7:42 AM PDTProblem: General Plan of Care (Adult, Obstetrics) Goal: Care Plan Shift Summary & Review . VSS, Pt chronic left shoulder pain controlled with motrin, oxycodone, hydrocodone. Pt very tired d/t fussy baby. Enc to nap with baby during day as possible. lan of Yonatan - Mirian Lai RN - 03/19/2014 3:36 PM PDTProblem: General Plan of Care (Adult, Obstetric s) Goal: Care Plan Shift Summary & Review . Outcome: Progressing Pt is up independently, nursing well, eating and drinking, voiding, continues with right sh oulder pain related to R/A. lan of Care - A belinda PATTY Meyer - 03/19/2014 12:24 PM PDTProblem: General Plan of Care (Adult, Obstetrics ) Goal: Care Plan Shift Summary & Review . This Cm spoke to Socorro to go give her where to go for help information. Socorro was eat ing her lunch with her baby next to her in the bed. Socorro is in the [place] program and knew most of the resources. She has a carseat. Discharge is expected tomorrow. Electronically signed by: PATTY Rodriguez 03/19/2014 12:24 p Note - Natalee Gibson MD - 03/18/2014 9:39 PM PDTDelivery Note Ms. Juarez is a 23-year-old 2, now para 2 woman who is admitted at approximately 3 9 weeks gestation in active labor. She required a continuous lumbar epidural for labor anal gesia and progressed well in active labor. She did require one dose of hydrocortisone durin g her labor, as she was on high-dose prednisone earlier in her because of rheumato id arthritis. After second stage of labor which lasted approximately 15 minutes, she delive red a vigorous 7 pound, 10 ounce male infant with Apgars of 9 and 9 over an intact perineum. A tight nuchal cord was present and reduced on the perineum. Infant was then bulb suction ed on the perineum and shoulders and body followed without difficulty. After delayed cord c lamping, the was handed to the attending nurse who placed the infant skin to skin on the maternal chest. Thereafter there is a normal third stage of labor with appropriate blood loss. Inspection of the placenta revealed a three-vessel umbilical cord and normal placenta morphology. Both mother and infant are doing well in the immediate period and I anticipate a norm al course for both. Dr. Clement her primary care provider will resume care tomorrow. lan of Care - Jo Ann Montano RN - 03/18/2014 6:48 PM PDTProblem: General Plan of Care (Adult, Obstetrics) Goal: Care Plan Shift Summary & Review . Outcome: Not Progressing Patient is tolerating labor well. She is using her Cadd self bolus button every 20-30min f or pain. She has a supportive family at her bedside. documented in this encounter Plan of Treatment + + +--------+ + + | Name | Type | Priori | Associated Diagnoses | Order Schedule | | | | ty | | | + + +--------+ + + | Amb referral to | Outpatient | Routin | Encounter for | 1 Occurrences | | | Referral | e | breast feeding | starting 03/20/2014 | | | | | counseling | until 03/18/2015 | + + +--------+ + + | Ambulatory referral | Outpatient | Routin | Encounter for | 1 Occurrences | | to | Referral | e | breast feeding | starting 03/20/2014 | | | | | counseling | until 03/18/2015 | + + +--------+ + + documented as of this encounter Procedures + +--------+ + + + | Procedure Name | Priori | Date/Time | Associated Diagnosis | Comments | | | ty | | | | + +--------+ + + + | CBC NO DIFFERENTIAL | Routin | 03/19/2014 | | Results for this | | | e | 5:51 AM | | procedure are in the | | | | PDT | | results section. | + +--------+ + + + | CBC NO DIFFERENTIAL | Routin | 03/18/2014 | | Results for this | | | e | 2:36 PM | | procedure are in the | | | | PDT | | results section. | + +--------+ + + + | TYPE AND SCREEN | Routin | 03/18/2014 | | Results for this | | | e | 2:36 PM | | procedure are in the | | | | PDT | | results section. | + +--------+ + + + | RUPTURE OF MEMBRANES | Routin | 03/18/2014 | | Results for this | | | e | 1:46 PM | | procedure are in the | | | | PDT | | results section. | + +--------+ + + + | EXTERNAL LAB: | Routin | 03/10/2014 | | Results for this | | HEMOGLOBIN | e | | | procedure are in the | | | | | | results section. | + +--------+ + + + | ABO RH | Routin | 08/29/2013 | | Results for this | | | e | | | procedure are in the | | | | | | results section. | + +--------+ + + + | ANTIBODY SCREEN | Routin | 07/19/2013 | | Results for this | | | e | | | procedure are in the | | | | | | results section. | + +--------+ + + + documented in this encounter Results CBC no Differential (03/19/2014 5:51 AM PDT) + + + + + + | Component | Value | Ref Range | Performed | Pathologist | | | | | At | Signature | + + + + + + | White Blood | 18.1 (H) | 4.0 - 11.0 K/uL | [facility] | | | Cells | | | [facility] | | | [facility] | [facility] | | | | | [facility] - | | | | | | LABORATORY | | + + + + + + | Red Blood | 3.72 | 3.70 - 5.20 | [facility] | | | Cells | | M/uL | [facility] | | | | | | [facility] | | | | | | [facility] - | | | | | | LABORATORY | | + + + + + + | Hemoglobin | 11.4 (L) | 11.5 - 16.0 | [facility] | | | | | g/dL | [facility] | | | | | | [facility] | | | | | | C[facility] - | | | | | | LABORATORY | | + + + + + + | Hematocrit | 34.0 | 34.0 - 47.0 % | [facility] | | | | | | [facility] | | [facility] | [facility] | | | | | | [facility] - | | | | | | LABORATORY | | + + + + + + | MCV | 91.3 | 83.0 - 101.0 fL | [facility] | | | | | | [facility] | | | [facility] | [facility] | | | | | | [facility] - | | | | | | LABORATORY | | + + + + + + | MCH | 30.6 | 28.0 - 35.0 pg | [facility] | | | | | | [facility] | | | | [facility] | [facility] | | | | | | [facility] - | | | | | | LABORATORY | | + + + + + + | MCHC | 33.5 | 32.0 - 36.0 | [facility] | | | | | g/dL | [facility] | | | | | | [facility] | | | | | | C[facility] - | | | | | | LABORATORY | | + + + + + + | RDW-CV | 13.5 | <15.0 % | [facility] | | | | | [facility] | | | | | | [facility] | | | | | | [facility] - | | | | | | LABORATORY | | + + + + + + | Platelet | 133 (L) | 140 - 440 K/uL | [facility] | | | Count | | | [facility] | | | | | | [facility] | | | | | | [facility] - | | | | | | LABORATORY | | + + + + + + | MPV | 10.3 | fL | [facility] | | | | | | [facility] | | | | | | [facility] | | | | | | CENTER - | | | | | | LABORATORY | | + + + + + + + + | Specimen | + + | Blood | + + + + + + + | Performing | Address | City/State/Zipcode | Phone Number | | Organization | | | | + + + + + | [facility] | [address] | [place] | [phone] | | [facility] | | [id number] | | | - LABORATORY | | | | + + + + + | [facility] | [address] | [place] | | | [facility] | | [id number], [facility] | | | - LABORATORY | | | | + + + + + CBC no Differential (03/18/2014 2:36 PM PDT) + +---------+ + + + | Component | Value | Ref Range | Performed | Pathologist | | | | | At | Signature | + +---------+ + + + | White Blood | 10.1 | 4.0 - 11.0 K/uL | [facility] | | | Cells | | | [facility] | | | | | | [facility] | | | | | | CENTER - | | | | | | LABORATORY | | + +---------+ + + + | Red Blood | 3.86 | 3.70 - 5.20 | [facility] | | | Cells | | M/uL | [facility] | | | | | | MEDICAL | | | | | | CENTER - | | | | | | LABORATORY | | + +---------+ + + + | Hemoglobin | 11.8 | 11.5 - 16.0 | [facility] | | | | | g/dL | [facility] | | | | | | [facility] | | | | | | CENTER - | | | | | | LABORATORY | | + +---------+ + + + | Hematocrit | 34.9 | 34.0 - 47.0 % | [facility] | | | | [facility] | | | | | | [facility] - | | | | | | LABORATORY | | + +---------+ + + + | MCV | 90.4 | 83.0 - 101.0 fL | [facility] | [facility] | | | | | | [facility] - | | | | | | LABORATORY | | + +---------+ + + + | MCH | 30.7 | 28.0 - 35.0 pg | [facility] | | | | | | [facility] | | | | | | [facility] | | | | | | CENTER - | | | | | | LABORATORY | | + +---------+ + + + | MCHC | 33.9 | 32.0 - 36.0 | [facility] | | | | | g/dL | [facility] | | | | | | [facility] | | | | | | CENTER - | | | | | | LABORATORY | | + +---------+ + + + | RDW-CV | 13.5 | <15.0 % | [facility] | | | | | [facility] | | | | | | [facility] | | | | | | CENTER - | | | | | | LABORATORY | | + +---------+ + + + | Platelet | 125 (L) | 140 - 440 K/uL | [facility] | | | Count | | | [facility] | | | | | | [facility] | | | | | | CENTER - | | | | | | LABORATORY | | + +---------+ + + + | MPV | 9.8 | fL | [facility] | | | | | | [facility] | | | | | | [facility] | | | | | | CENTER - | | | | | | LABORATORY | | + +---------+ + + + + + | Specimen | + + | Blood | + + + + + + + | Performing | Address | City/State/Zipcode | Phone Number | | Organization | | | | + + + + + | [facility] | [address] | [place] | [phone] | | [facility] | | [id number] | | | - LABORATORY | | | | + + + + + | [facility] | [address] | [place] | | | [facility] | | [id number] | | | - LABORATORY | | | | + + + + + Type and Screen (03/18/2014 2:36 PM PDT) + + + + + + | Component | Value | Ref Range | Performed | Pathologist | | | | | At | Signature | + + + + + + | ABO | B | | [facility] | | | | | | [facility] | | | | | | MEDICAL | | | | | | CENTER - | | | | | | BLOOD BANK | | + + + + + + | Rh Type | Positive | | [facility] | | | | | | [facility] | | [facility] | | | MEDICAL | | | | | | CENTER - | | | | | | BLOOD BANK | | + + + + + + | Antibody | Negative | | [facility] | | | Screen | | | [facility] | | | | | | MEDICAL | | | | | | CENTER - | | | | | | BLOOD BANK | | + + + + + + + + | Specimen | + + | Blood specimen | | (specimen) | + + + + + + + | Performing | Address | City/State/Zipcode | Phone Number | | Organization | | | | + + + + + | [facility] | [address] | [place] | | | [facility] | | [address] | | | - BLOOD BANK | | | | + + + + + Rupture of Membranes (03/18/2014 1:46 PM PDT) + + + + + + | Component | Value | Ref Range | Performed | Pathologist | | | | | At | Signature | + + + + + + | Rupture of | Negative | Negative | [facility] | | | | | [facility] | | | Membranes | | | MEDICAL | | | | | | CENTER - | | | | | | LABORATORY | | + + + + + + + + | Specimen | + + | Body Fluid - | | Tracheal syrinx | | (body structure) | + + + + + + + | Performing | Address | City/State/Zipcode | Phone Number | | Organization | | | | + + + + + | [facility] | [address] | [place] | [phone] | | [facility] | | [address] | | | - LABORATORY | | | | + + + + + | [facility] | [address] | [place], [place] | | | [facility] | | [id number] | | | - LABORATORY | | | | + + + + + External Lab: Hemoglobin (03/10/2014) + +-------+ + + + | Component | Value | Ref Range | Performed | Pathologist | | | | | At | Signature | + +-------+ + + + | HGB, | 11.3 | | | | | External | | | | | + +-------+ + + + ABO Rh (08/29/2013) + + + + + + | Component | Value | Ref Range | Performed | Pathologist | | | | | At | Signature | + + + + + + | [facility]OR[facility] | B Positive | | | | | EXTERNAL | | | | | + + + + + + + + | Specimen | + + | Blood specimen | | (specimen) | + + Antibody Screen (07/19/2013) + + + + + + | Component | Value | Ref Range | Performed | Pathologist | | | | | At | Signature | + + + + + + | Antibody | Negative | Negative | | | | Screen, | | | | | | External | | | | | + + + + + + + + | Specimen | + + | Blood specimen | | (specimen) | + + documented in this encounter Visit Diagnoses + + | Diagnosis | + + | Encounter for breast feeding counseling - Primary | + + | Delivery normal Normal delivery | + + | Rheumatoid arthritis (HCC) | + + documented in this encounter Administered Medications + +--------+ + +------+------+ | Medication Order | MAR | Action | Dose | Rate | Site | | | Action | Date | | | | + +--------+ + +------+------+ | calcium carbonate (TUMS) | Given | 03/18/20 | 1,000 mg | | | | chewable tablet 1,000 mg 1,000 | | 14 5:01 | | | | | mg, Oral, EVERY 2 HOURS PRN, | | PM PDT | | | | | Indigestion, Starting 03/18/14 | | | | | | | at 1655 | | | | | | + +--------+ + +------+------+ +---+---+ | | | +---+---+ + +-------+ +--------+---+---+ | docusate sodium (COLACE) | Given | 03/19/20 | 200 mg | | | | capsule 200 mg 200 mg, Oral, | | 14 9:44 | | | | | NIGHTLY, First dose on Tue | | PM PDT | | | | | 03/18/14 at 2330, Hold for loose | | | | | | | stools, | | | | | | + +-------+ +--------+---+---+ +-------+ +--------+---+---+ | Given | 03/19/20 | 200 mg | | | | | 14 1:06 | | | | | | AM PDT | | | | +-------+ +--------+---+---+ +---+---+ | | | +---+---+ + +---------+ +---+-------+---+ | fentaNYL 2 mcg/mL-bupivacaine | New Bag | 03/18/20 | | 0.5 | | | 0.125%-NaCl 0.9% epidural at 0.5 | | 14 4:28 | | mL/hr | | | mL/hr, EPIDURAL, ONCE, Tue | | PM PDT | | | | | 03/18/14 at 1630, For 1 dose, | | | | | | | Intra-op, Patient-controlled | | | | | | | Bolus Dose (mL): 8, Lockout | | | | | | | Interval (min): 20 | | | | | | + +---------+ +---+-------+---+ +---+---+ | | | +---+---+ + +-------+ +---------+---+---+ | HYDROcodone-acetaminophen | Given | 03/20/20 | 2 | | | | (NORCO) 5-325 mg per tablet 1-2 | | 14 10:22 | tablets | | | | tablet 1-2 tablet, Oral, EVERY 4 | | AM PDT | | | | | HOURS PRN, Pain, Starting Tue | | | | | | | 03/18/14 at 2314, If ineffective | | | | | | | or not tolerated, use oxycodone | | | | | | | if ordered., | | | | | | + +-------+ +---------+---+---+ +-------+ +---------+---+---+ | Given | 03/19/20 | 2 | | | | | 14 9:56 | tablets | | | | | PM PDT | | | | +-------+ +---------+---+---+ | Given | 03/19/20 | 2 | | | | | 14 5:23 | tablets | | | | | PM PDT | | | | +-------+ +---------+---+---+ +---+---+ | | | +---+---+ + +-------+ +-------+---+---+ | hydrocortisone (PF) | Given | 03/19/20 | 25 mg | | | | (solu-CORTEF) injection 25 mg 25 | | 14 9:43 | | | | | mg, Intravenous, EVERY 8 HOURS | | PM PDT | | | | | (3 times per day), First dose | | | | | | | (after last reorder) on Mon | | | | | | | 03/19/14 at 1000, For 2 doses, Mix | | | | | | | with 2 mL sterile water to make | | | | | | | 50 mg/mL., | | | | | | + +-------+ +-------+---+---+ +-------+ +-------+---+---+ | Given | 03/19/20 | 25 mg | | | | | 14 10:56 | | | | | | AM PDT | | | | +-------+ +-------+---+---+ +---+---+ | | | +---+---+ + +-------+ +-------+---+---+ | hydrocortisone (PF) | Given | 03/18/20 | 50 mg | | | | (solu-CORTEF) injection 50 mg 50 | | 14 6:01 | | | | | mg, Intravenous, EVERY 6 HOURS | | PM PDT | | | | | (4 times per day), First dose on | | | | | | | 03/18/14 at 1800, Mix with 2 | | | | | | | mL sterile water to make 50 | | | | | | | mg/mL., | | | | | | + +-------+ +-------+---+---+ +---+---+ | | | +---+---+ + +-------+ +-------+---+---+ | hydrocortisone (PF) | Given | 03/19/20 | 50 mg | | | | (solu-CORTEF) injection 50 mg 50 | | 14 4:12 | | | | | mg, Intravenous, ONCE, Wed | | AM PDT | | | | | 03/19/14 at 0215, For 1 dose, Mix | | | | | | | with 2 mL sterile water to make | | | | | | | 50 mg/mL., | | | | | | + +-------+ +-------+---+---+ +---+---+ | | | +---+---+ + +-------+ +--------+---+---+ | ibuprofen (ADVIL,MOTRIN) tablet | Given | 03/20/20 | 800 mg | | | | 800 mg 800 mg, Oral, EVERY 8 | | 14 10:23 | | | | | HOURS PRN, Pain, Starting Tue | | AM PDT | | | | | 03/18/14 at 2314, If urine output | | | | | | | is less than 240 mL/8 hours (30 | | | | | | | mL/hr) or if signs of bleeding, | | | | | | | contact MD and hold ibuprofen., | | | | | | | | | | | | | + +-------+ +--------+---+---+ +-------+ +--------+---+---+ | Given | 03/20/20 | 800 mg | | | | | 14 1:16 | | | | | | AM PDT | | | | +-------+ +--------+---+---+ | Given | 03/19/20 | 800 mg | | | | | 14 12:25 | | | | | | PM PDT | | | | +-------+ +--------+---+---+ +---+---+ | | | +---+---+ + +---------+ +---+-------+---+ | lactated ringers (LR) infusion | New Bag | 03/18/20 | | 100 | | | at 100 mL/hr, Intravenous, | | 14 5:11 | | mL/hr | | | CONTINUOUS, Starting Mon03/18/14 | | PM PDT | | | | | at 1445 | | | | | | + +---------+ +---+-------+---+ +---------+ +---+-------+---+ | New Bag | 03/18/20 | | 100 | | | | 14 4:05 | | mL/hr | | | | PM PDT | | | | +---------+ +---+-------+---+ +---+---+ | | | +---+---+ + +-------+ +---+---+---+ | lanolin ointment Topical, PRN, | Given | 03/19/20 | | | | | Dry Skin, for moist wound | | 14 9:56 | | | | | healing, Starting Mon03/18/14 at | | PM PDT | | | | | 2314, Apply to nipples. May keep | | | | | | | at bed side., | | | | | | + +-------+ +---+---+---+ +---+---+ | | | +---+---+ + +-------+ +-------+---+---+ | oxyCODONE (ROXICODONE) tablet | Given | 03/20/20 | 10 mg | | | | 5-15 mg 5-15 mg, Oral, EVERY 4 | | 14 3:48 | | | | | HOURS PRN, Pain, Starting Tue | | AM PDT | | | | | 03/18/14 at 2314, | | | | | | + +-------+ +-------+---+---+ +-------+ +-------+---+---+ | Given | 03/19/20 | 10 mg | | | | | 14 6:48 | | | | | | PM PDT | | | | +-------+ +-------+---+---+ | Given | 03/19/20 | 10 mg | | | | | 14 1:51 | | | | | | PM PDT | | | | +-------+ +-------+---+---+ +---+---+ | | | +---+---+ + +---------+ + +-------+---+ | oxytocin in saline (PITOCIN) 30 | New Bag | 03/18/20 | 999 | 999 | | | units/500 mL (60 sigrid-units/mL) | | 14 10:03 | sigrid-un | mL/hr | | | infusion 0-999 sigrid-units/min | | PM PDT | its/min | | | | (rounded to 0-999 mL/hr), at | | | | | | | 0-999 mL/hr, Intravenous, | | | | | | | TITRATED, Starting 03/18/14 at | | | | | | | 1445, Low Dose (Cervical | | | | | | | Ripening) Management: Dose 1-4 | | | | | | | mU/min. Begin infusion at 1 | | | | | | | mU/min for 60 minutes, Increase | | | | | | | to 2 mU/min for 60 minutes, | | | | | | | Increase to 4 mU/min and continue | | | | | | | at this level until Mi score | | | | | | | of 7 or more. Maximum dose for | | | | | | | cervical ripening = 4mU/min. | | | | | | | Standard (Augmentation/Induction) | | | | | | | Management: Dose 0-40 mU/min. | | | | | | | Begin infusion at 1-2 mU/minute. | | | | | | | Increase at no greater than 2 | | | | | | | mU/min every 30 minutes, until | | | | | | | adequate labor. Maximum standard | | | | | | | dose for augmentation/induction | | | | | | | = 20 mU/min. Call provider to | | | | | | | increase above 20 mU/min. Do not | | | | | | | increase above 40 mU/min. Do | | | | | | | not increase rate if there is | | | | | | | tachysystole ( > 5 contractions | | | | | | | in 10 minutes averaged over 30 | | | | | | | minutes) or concern regarding | | | | | | | tracing. For tachysystole, | | | | | | | indications or increased | | | | | | | baseline uterine tone, notify | | | | | | | provider and stop or decrease | | | | | | | oxytocin infusion per unit policy | | | | | | | until the indication has ceased. | | | | | | | Restart the infusion per policy | | | | | | | or at 50% or less of the previous | | | | | | | rate. Third Stage | | | | | | | Management/Immediate : | | | | | | | Dose 0-999 mU/min. After delivery | | | | | | | of anterior shoulder or | | | | | | | placenta, titrate to control | | | | | | | bleeding. May discontinue if | | | | | | | fundus firm, bladder not | | | | | | | distended and patient tolerating | | | | | | | oral fluids and pain meds., | | | | | | | Initiate oxytocin after delivery | | | | | | | of anterior shoulder or placenta | | | | | | | for third stage management: yes | | | | | | + +---------+ + +-------+---+ +---+---+ | | | +---+---+ + +-------+ +-------+---+---+ | predniSONE (DELTASONE) tablet | Given | 03/19/20 | 10 mg | | | | 10 mg 10 mg, Oral, 2 TIMES | | 14 8:21 | | | | | DAILY, First dose on Mon03/18/14 | | AM PDT | | | | | at 2330 | | | | | | + +-------+ +-------+---+---+ +---+---+ | | | +---+---+ + +-------+ +-------+---+---+ | predniSONE (DELTASONE) tablet | Given | 03/20/20 | 15 mg | | | | 15 mg 15 mg, Oral, DAILY, First | | 14 8:23 | | | | | dose (after last modification) on | | AM PDT | | | | | Karly 03/20/14 at 0900 | | | | | | + +-------+ +-------+---+---+ +---+---+ | | | +---+---+ + +-------+ + +---+---+ | 27-0.8 mg multivitamin | Given | 03/20/20 | 1 tablet | | | | 1 tablet 1 tablet, Oral, DAILY, | | 14 8:20 | | | | | First dose on 03/19/14 at | | AM PDT | | | | | 0900, | | | | | | + +-------+ + +---+---+ +-------+ + +---+---+ | Given | 03/19/20 | 1 tablet | | | | | 14 8:21 | | | | | | AM PDT | | | | +-------+ + +---+---+ +---+---+ | | | +---+---+ documented in this encounter
--- OUTSIDE RECORDS SUMMARY | ~2020-01-20 | XMS | Clinical Summary ---
Demographics + + + | Address | [address] | | | [place] [address] | + + + | Home Phone | | + + + | Preferred Language | Unknown | + + + | Marital Status | Single | + + + | Sabianism Affiliation | Unknown | + + + | Race | Unknown | + + + | Ethnic Group | Unknown | + + + Author + + + | Author | [facility] | | | and [place] | + + + | Organization | [facility] | | | and [place] | [...] Team Providers + +------+ + | Care Sander Machine Name | Role | Phone | + +------+ + | Sincere Haddad | PCP | | + +------+ + Allergies + + + + + + | Active Allergy | Reactions | Severity | Noted | Comments | | | | | Date | | + + + + + + | Ciprofloxacin Hcl | Shortness Of Breath | High | 03/18/20 | | | | | | 14 | | + + + + + + | Sulfamethoxazole | Shortness Of Breath | High | 03/18/20 | Causes respiratory | | W/Trimethoprim | | | 14 | symptoms and hives | | (Co-Trimoxazole) | | | | | + + + + + + | Trimethoprim | Other (See Comments) | | 01/03/20 | | | | | | 16 | | + + + + + + Medications + + + +---------+------+------+-------+ | Medication | Sig | Dispensed | Refills | Star | End | Statu | | | | | | t | Date | s | | | | | | Date | | | + + + +---------+------+------+-------+ | 27-0.8 mg | Take 1 tablet by | | 0 | | | Activ | | multivitamin tablet | mouth Daily. | | | | | e | + + + +---------+------+------+-------+ | ranitidine | Take 25 mg by mouth | | 0 | | | Activ | | (ZANTAC) 25 MG | 2 times daily. | | | | | e | | effervescent tablet | | | | | | | + + + +---------+------+------+-------+ | omeprazole | Take 40 mg by mouth | | 0 | | | Activ | | (PRILOSEC) 20 mg | every morning | | | | | e | | capsule | (before breakfast). | | | | | | + + + +---------+------+------+-------+ | meloxicam (MOBIC) | Take 15 mg by mouth | | 0 | | | Activ | | 15 mg tablet | Daily. | | | | | e | + + + +---------+------+------+-------+ | predniSONE | Take 1 tablet by | 30 | 1 | 08/03 | | Activ | | (DELTASONE) 10 mg | mouth Daily. | tablet | | 10/20 | | e | | tablet | | | | 20 | | | + + + +---------+------+------+-------+ Active Problems + + + | Problem | Noted Date | + + + | High risk medication use | 09/24/2019 | + + + + + | Last Assessment & Plan: The patient was counseled regarding | | medication compliance and routine laboratory monitoring due to | | the potential toxicities with rheumatological medications such as | | but not limited to; hematologic toxicity, hepatotoxicity, renal | | dysfunction and increased risks for infections.Basic Labs | | Monitored (CBC, CMP, ESR and CRP): Ordered today during clinic | | visitThese labs are routinely ordered due to high risk medication | | the patient is currently taking - Monitored for cytopenias, | | liver toxicity, renal dysfunction and disease activity. Hepatitis | | Panel: Negative - 08/2019This will be checked every 5 years based | | on the patients risk factors or at time of biologic drug change. | | Quantiferon TB Gold: Negative - 08/2019 This will be checked | | initially before the start of a biologic medication as well as | | yearly if the patient remains on a biologic. The patient is at | | risk for exposure due to the geographical area and the biologic | | immunodepressant has the potential to activate latent TB. | + + + + + | Fatigue | 09/24/2019 | + + + | Subcutaneous rheumatoid nodule | 09/24/2019 | + + + | Generalized anxiety disorder | 08/16/2019 | + + + | Migraine with aura and without status migrainosus, not | 11/23/2015 | | intractable | | + + + | Delivery normal | 03/20/2014 | + + + | Rheumatoid arthritis | 03/20/2014 | + + + + + | Last Assessment & Plan: The patient returns to the clinic for | | a follow up appointment. She was diagnosed with RS at the age of | | 20. She is currently . We were unable to obtain her | | rheumatology records we will try to request these again. We will | | also redo her serology blood work. She can continue prednisone | | 10mg daily as long as her OBGYN is in agreement. We will check | | her blood work and see her back in 3-4 months | + + + + + | Esophageal reflux | 03/17/2014 | + + + + + | Overview: Overview: | | exacerbated in | + + + + + + | | Estimated Date of Delivery | Comments | + + + + | Yes | 02/06/2020 | | + + + + Encounters +--------+ + + + + | Date | Type | Specialty | Care Team | Description | +--------+ + + + + | 01/15/ | Office | Rheumatology | Juan Carlos Betts, | Rheumatoid arthritis | | 2020 | Visit | | PA-C | of multiple sites | | | | | | with negative | | | | | | rheumatoid factor | | | | | | ([facility]) (Primary Dx); | | | | | | High risk medication | | | | | | use; Pain in joint, | | | | | | multiple sites | +--------+ + + + + | 01/14/ | Telephone | Rheumatology | Juan Carlos Betts, | Other (Prereg) | | 2020 | | | PA-C | | +--------+ + + + + from Last 3 Months Immunizations + + + + | Name | Administration Dates | Next Due | + + + + | DTAP, 5 DOSE (PED) | 03/11/1997, 03/06/1996, 06/14/1995 | | + + + + | DTP (PED) | 07/06/1994, 06/20/1990, 04/11/1990 | | + + + + | HIB HBOC CONJUGATE, | 07/06/1994, 06/20/1990 | | | 4 DOSE (PED) | | | + + + + | Hep B (PED/ADOL) 3 | 10/27/2012, 08/17/2004, 08/14/2003 | | | DOSE | | | + + + + | INFLUENZA 64 Y OR >, | 08/17/2015 | | | TRIVALENT HIGH-DOSE | | | + + + + | INFLUENZA PF 4Y OR | 03/30/2017 | | | >,QUAD DERIVED FROM | | | | TISS-CULT | | | + + + + | INFLUENZA TRIV | 04/03/2014, 07/14/2011 | | | W/PRES(PED/ADOL/ADUL | | | | T),MULTIDOSE | | | + + + + | MMR, 2 DOSE | 03/11/1997, 09/07/1994 | | | (PED/ADULT) | | | + + + + | POLIOVIRUS,OPV | 06/14/1995, 07/06/1994, 07/22/1992, | | | (LIVE) | 06/20/1990, 04/11/1990 | | + + + + | PPD Test | 08/16/2019 | | + + + + | TD PF (5 LF TETANUS) | 02/15/2015 | | | (ADOL/ADULT) | | | + + + + | TDAP, (ADOL/ADULT) | 07/19/2017, 01/01/2014 | | + + + + | TETANUS TOXOID | 02/15/2015 | | | ABSORBED, | | | | (ADOL/ADULT) | | | + + + + Family History + + +------+ + | Medical History | Relation | Name | Comments | + + +------+ + | Hypertension | Maternal | | | | | Aunt | | | + + +------+ + | Ovarian cancer | Maternal | | | | | Aunt | | | + + +------+ + | Stroke | Maternal | | | | | Aunt | | | + + +------+ + | Diabetes | Maternal | | | | | Grandmoth | | | | | er | | | + + +------+ + | Gout | Maternal | | | | | Grandmoth | | | | | er | | | + + +------+ + | Cancer | Maternal | | | | | Uncle | | | + + +------+ + | Cancer | Mother | | | + + +------+ + | Hypertension | Mother | | | + + +------+ + | Osteoarthritis | Other | MGGM | | + + +------+ + | Diabetes | Paternal | | | | | Grandmoth | | | | | er | | | + + +------+ + + +------+--------+ + | Relation | Name | Status | Comments | + +------+--------+ + | Maternal Aunt | | Alive | | + +------+--------+ + | Maternal Grandmother | | Alive | | + +------+--------+ + | Maternal Uncle | | Alive | | + +------+--------+ + | Mother | | Alive | | + +------+--------+ + | Other | MGGM | Alive | | + +------+--------+ + | Paternal Grandmother | | Alive | | + +------+--------+ + Social History + +-------+ +--------+------+ | [...] + + + + + + | | Estimated Date of Delivery | Comments | + + + + | Yes | 02/06/2020 | | + + + + + + + | Sex Assigned at | Date Recorded | | | | + + + | Not on file | | + + + Last Filed Vital Signs + + + + + | Vital Sign | Reading | Time Taken | Comments | + + + + + | Blood Pressure | 128/83 | 10/17/2019 2:29 PM | | | | | PDT | | + + + + + | Pulse | 103 | 10/17/2019 2:29 PM | | | | | PDT | | + + + + + | Temperature | 36.6 C (97.8 F) | 10/17/2019 2:29 PM | | | | | PDT | | + + + + + | Respiratory Rate | 14 | 10/03/2018 9:11 PM | | | | | PDT | | + + + + + | Oxygen Saturation | 99% | 10/17/2019 2:29 PM | | | | | PDT | | + + + + + | Inhaled Oxygen | - | - | | | Concentration | | | | + + + + + | Weight | 82.1 kg (181 lb) | 10/17/2019 2:29 PM | | | | | PDT | | + + + + + | Height | 154.9 cm (5' 1") | 08/16/2019 9:51 AM | | | | | PST | | + + + + + | Body Mass Index | 34.2 | 08/16/2019 9:51 AM | | | | | PST | | + + + + + Plan of Treatment + + + + + | Health Maintenance | Due Date | Last | Comments | | | | Done | | + + + + + | Cervical Cancer | | | | | Screening (Pap) | 0 | | | + + + + + | Vaccine: Influenza | | 03/30/20 | | | (#1) | 0 | 17, | | | | | 08/17/19 | | | | | 16, | | | | | 04/03/20 | | | | | 14, | | | | | Addition | | | | | al | | | | | history | | | | | exists | | + + + + + | Vaccine: | | 07/19/19 | | | Dtap/Tdap/Td (8 - | 8 | 18, | | | Td) | | 02/16/20 | | | | | 15, | | | | | 02/16/20 | | | | | 15, | | | | | Addition | | | | | al | | | | | history | | | | | exists | | + + + + + Results Not on filefrom Last 3 Months Insurance + +--------+ +--------+ +---------+--------+ | Payer | Benefi | Subscriber | Effect | Phone | Address | Type | | | t Plan | ID | jaylan | | | | | | / | | Dates | | | | | | Group | | | | | | + +--------+ +--------+ +---------+--------+ | [employer] | [employer] | [id number] | 10/04/19 | [phone] | | Medica | | MEDICAID HMO | HEALTH | | 19-Pre | 1 | | id | | | MDCD | | sent | | | | | | [place] | | | | | | + +--------+ +--------+ +---------+--------+ | [employer] | [employer] | [id number] | 08/07/19 | [phone] | | Medica | | MEDICAID HMO | HEALTH | | 20-Pre | 1 | | id | | | MDCD | | sent | | | | | | [place] | | | | | | + +--------+ +--------+ +---------+--------+ + +--------+ +--------+ + + | Guarantor Name | Accoun | Relation to | Date | Phone | Billing Address | | | t Type | Patient | of | | | | | | | | | | + +--------+ +--------+ + + | Socorro Juarez | Person | Self | [birth year] | [address] | | [place] | al/Fam | | 1990 | [phone] | [place] [address] | | | xiomara | | | 0 (Home) | | + +--------+ +--------+ + + | Socorro Juarez | Person | Self | [birth year] | | [address] | | [place] | al/Fam | | 1990 | [phone] | [place] [address] | | | [place] | | | 0 (Home) | | + +--------+ +--------+ + + Advance Directives + + + + + | Type | Date Recorded | Patient | Explanation | | | | Petrophysicist | | + + + + + | Power of | | | | | Agent Contract Clerk | | | | + + + + + | Advance | 03/12/2014 8:27 | | | | Directive | AM | | | + + + + +
--- OUTSIDE RECORDS SUMMARY | ~2020-01-20 | XMS | Encounter Summary ---
Demographics + + + | Address | [address] | | | [place] [address] | + + + | Home Phone | | + + + | Preferred Language | Unknown | + + + | Marital Status | Single | + + + | Mandaen Affiliation | Unknown | + + + | Race | Unknown | + + + | Ethnic Group | Unknown | + + + Author + + + | Author | [facility] | | | and [place] | + + + | Organization | [facility] | | | and [place] [...] Team Providers + +------+ + | Care Esthetician And Manager Medical Spa Name | Role | Phone | + +------+ + | Grupo Mario MD | PCP | | + +------+ + Encounter Details +--------+ + + + + | Date | Type | Department | Care Team | Description | +--------+ + + + + | 03/12/ | [facility] | [facility] | Grupo Mario, | state, | | 2013 | Encounter | MED CTR ULTRASOUND | [address] | incidental | | | | [address] | [place], [place] | | | | | [place] | [address] | | | | | [address] | | | | | | [phone] | Mina Glez | | | | | | Jr. Technologist | | +--------+ + + + + [...] | + +--------+ + + + | US OB 14 + WEEKS | Routin | 03/12/2014 | state, | Results for this | | SINGLE OR FIRST | e | 9:39 AM | incidental | procedure are in the | | GESTATION | | PDT | | results section. | + +--------+ + + + documented in this encounter Results US OB 14 + Week Singl or First Gestation (03/12/2014 9:39 AM PDT) + + | Specimen | + + | | + + + + + | Narrative | Performed At | + + + | COMPLETE OBSTETRIC ULTRASOUND 03/12/2014 8:57 AM CLINICAL | MISC[facility]ANIOUS | | HISTORY: H/O RA, TRANSFER OF CARE AT 36 WEEK, EVALUATE GROWTH, | LAB | | APPROXIMATELY 37 WEEKS 5 DAYS BASED ON LMP COMPARISON: | | | None available FINDINGS: A single intrauterine fetus is present, | | | and is in cephalic. The maternal cervix measures 2.2 cm. Some | | | funneling of the internal cervical os is noted. The placenta is | | | anterior, without evidence of placenta previa or subchorionic | | | hemorrhage. Amniotic fluid volume is subjectively within normal | | | limits. biometric data: BPD of 9.4 cm equals 38 weeks 3 | | | days. Head circumference of 33.4 cm equals 38 weeks 3 days. | | | Abdominal circumference of 32.4 cm equals 36 weeks 3 days. Femur | | | length of 7.4 cm equals 38 weeks 0 days. Average sonographic age | | | is 37 weeks 6 days, which is 1 day greater than the calculated | | | gestational age based on LMP. Estimated weight is 3153 g | | | +/-460 g. Cephalic index is normal at 80. HC/AC is normal at 1.03. | | | anatomic survey: Intracranial structures, face and | | | the three-vessel umbilical cord insertion are not optimally | | | visualized due to advanced gestational age and positioning. A | | | four-chamber heart is present, with a regular rate of 127 BPM. | | | Cardiac ventricular outflow tracts are normal in orientation. | | | A fluid filled stomach and bladder are present. The renal | | | region is unremarkable. IMPRESSION - 1. SINGLE, | | | LIVING INTRAUTERINE FETUS IN CEPHALIC PRESENTATION, WITH AVERAGE | | | SONOGRAPHIC AGE 37 WEEKS 6 DAYS, WHICH IS 1 DAY GREATER THAN THE | | | CALCULATED GESTATIONAL AGE BASED ON LMP. 2. LIMITED BUT | | | OTHERWISE UNREMARKABLE ANATOMIC SURVEY DUE TO ADVANCED | | | GESTATIONAL AGE. 3. SHORTENED CERVIX MEASURING 2.2 CM, WITH SOME | | | FUNNELING NOTED AT THE INTERNAL CERVICAL OS. Dictated and Signed | | | by: Amari Peralta MD Electronically signed: 03/12/2014 11:34 AM | | + + + + + | Procedure Note | + + | Tremaine, Rad Results In - 03/12/2014 11:37 AM PDT COMPLETE OBSTETRIC ULTRASOUND | | 03/12/2014 8:57 AMCLINICAL HISTORY: H/O RA, TRANSFER OF CARE AT 36 WEEK, EVALUATE | | GROWTH,APPROXIMATELY 37 WEEKS 5 DAYS BASED ON LMPCOMPARISON: None | | availableFINDINGS: A single intrauterine fetus is present, and is in cephalic. | | Thematernal cervix measures 2.2 cm. Some funneling of the internal cervical os isnoted. | | The placenta is anterior, without evidence of placenta previa orsubchorionic | | hemorrhage. Amniotic fluid volume is subjectively within normallimits. biometric | | data:BPD of 9.4 cm equals 38 weeks 3 days.Head circumference of 33.4 cm equals 38 weeks | | 3 days.Abdominal circumference of 32.4 cm equals 36 weeks 3 days.Femur length of 7.4 cm | | equals 38 weeks 0 days.Average sonographic age is 37 weeks 6 days, which is 1 day | | greater than thecalculated gestational age based on LMP. Estimated weight is 3153 | | g+/-460 g. Cephalic index is normal at 80. HC/AC is normal at 1.03. anatomic | | survey: Intracranial structures, face and the three-vesselfetal umbilical cord | | insertion are not optimally visualized due to advancedgestational age and | | positioning. A four-chamber heart is present, with aregular rate of 127 BPM. Cardiac | | ventricular outflow tracts are normal inorientation. A fluid filled stomach and | | bladder are present. The renalregion is unremarkable. IMPRESSION -1. | | SINGLE, LIVING INTRAUTERINE FETUS IN CEPHALIC PRESENTATION, WITH AVERAGESONOGRAPHIC AGE | | 37 WEEKS 6 DAYS, WHICH IS 1 DAY GREATER THAN THE CALCULATEDGESTATIONAL AGE BASED ON LMP. | | 2. LIMITED BUT OTHERWISE UNREMARKABLE ANATOMIC SURVEY DUE TO | | ADVANCEDGESTATIONAL AGE.3. SHORTENED CERVIX MEASURING 2.2 CM, WITH SOME FUNNELING NOTED | | AT THE INTERNALCERVICAL OS.Dictated and Signed by: Amari Peralta MD Electronically | | signed: 03/12/2014 11:34 AM | | anatomic survey: Intracranial structures, face and the three-vessel | | umbilical cord insertion are not optimally visualized due to advanced | |gestational age and positioning. A four-chamber heart is present, with a | |regular rate of 127 BPM. Cardiac ventricular outflow tracts are normal in | |orientation. A fluid filled stomach and bladder are present. The renal | |region is unremarkable. | | | |IMPRESSION - | |1. SINGLE, LIVING INTRAUTERINE FETUS IN CEPHALIC PRESENTATION, WITH AVERAGE | |SONOGRAPHIC AGE 37 WEEKS 6 DAYS, WHICH IS 1 DAY GREATER THAN THE CALCULATED | |GESTATIONAL AGE BASED ON LMP. | | | |2. LIMITED BUT OTHERWISE UNREMARKABLE ANATOMIC SURVEY DUE TO ADVANCED | |GESTATIONAL AGE. | | | |3. SHORTENED CERVIX MEASURING 2.2 CM, WITH SOME FUNNELING NOTED AT THE INTERNAL | |CERVICAL OS. | | | |Dictated and Signed by: Amari Peralta MD | | Electronically signed: 03/12/2014 11:34 AM | + + + +---------+ + + | Performing | Address | City/State/Zipcode | Phone Number | | Organization | | | | + +---------+ + + | [facility] | | | [phone] | + +---------+ + + | [facility] | | | [phone] | + +---------+ + + documented in this encounter Visit Diagnoses + + | Diagnosis | + + | state, incidental | + + documented in this encounter"
--- OUTSIDE RECORDS SUMMARY | ~2020-01-20 | XMS | Encounter Summary ---
Demographics + + + | Address | [address] | | | [place] [address] | + + + | Home Phone | | + + + | Preferred Language | Unknown | + + + | Marital Status | Single | + + + | Yazidi Affiliation | Unknown | + + + | Race | Unknown | + + + | Ethnic Group | Unknown | + + + Author + + + | Author | [facility] | | | and [place] | + + + | Organization | [facility] | | | and [place] [...] Team Providers + +------+ + | Care Complaint Adjuster Name | Role | Phone | + +------+ + | Sincere Haddad | PCP | | + +------+ + Reason for Visit +--------+--------+ + | Reason | Onset | Comments | | | Date | | +--------+--------+ + | Other | 08/21/ | notes | | | 2020 | | +--------+--------+ + Encounter Details +--------+ + + + + | Date | Type | Department | Care Team | Description | +--------+ + + + + | 08/21/ | Telephone | [facility] | Sudhir Bowles | Other (notes) | | 2019 | | RHEUMATOLOGY [address] | MD Usama [address] | | | | | [address] | [address] | | | | | [place] | [place] [address] | | | | | [address] | [phone] | | | | | [phone] | | | +--------+ + + + [...] + + documented as of this encounter Miscellaneous Notes Telephone Encounter - July Meeks, Electronic Integrated Systems Mechanic - 08/21/2019 4:09 PM Dorina garcia faxed with confirmation to her OBGYN with confirmation. elephone Encounter - July Meeks Electronic Integrated Systems Mechanic - 08/21/2019 4:08 PM PST----- Message from Ashley Goldberg sent at 08/20/2019 1:45 PM PST ----- Contact: Patient Patient called and asked if her chart notes from her last visit could be faxed to her OBGYN so her could be considered a high risk. thanks. dosujatam ented in this encounter Plan of Treatment Not on filedocumented as of this encounter Visit Diagnoses Not on filedocumented in this encounter"
--- OUTSIDE RECORDS SUMMARY | ~2020-01-20 | XMS | Encounter Summary ---
Demographics + + + | Address | [address] | | | [place] [address] | + + + | Home Phone [...] + + + | Author | [facility] | | | and [place]ana | + + + | Organization | [facility] | | | and [place] | [...] Team Providers + +------+ + | Care Senior Attorney Name | Role | Phone | + +------+ + | Sincere Haddad | PCP | | + +------+ + Reason for Visit + + + | Reason | Comments | + + + | Rheumatology | | | Appointment | | + + + Evaluate & Treat (Routine) +--------+--------+ + + + + | Status | Reason | Specialty | Diagnoses / | Referred By | Referred To | | | | | Procedures | Contact | Contact | +--------+--------+ + + + + | Closed | | | Diagnoses | Princess Haddad | | | | | Rheumatoid | [facility] | Rheumatology | | | | | arthritis, | [address] | | | | | unspecified | [address] | [address] | | | | | ([facility]) | [address] | [place] | | | | | | [place], | [address] | | | | | | [place] [address] | Phone: | | | | | | Phone: | [phone] | | | | | | [phone] | Fax: | | | | | | Fax: | [phone] | | | | | | [phone] | | +--------+--------+ + + + + Encounter Details +--------+---------+ + + + | Date | Type | Department | Care Team | Description | +--------+---------+ + + + | 08/16/ | Office | [facility] | Sudhir Bowles | Pain in joint, | | 2020 | Visit | RHEUMATOLOGY [address] | MD Usama [address] | multiple sites | | | | [address] | [address] | (Primary Dx); | | | | [place] | [place] [address] | Rheumatoid arthritis | | | | [address] | [phone] | of multiple sites | | | | [phone] | | with negative | | | | | | rheumatoid factor | | | | | | (HCC); High risk | | | | | | medication use | +--------+---------+ + + + Social History + +-------+ [...] + + + | Blood Pressure | 131/94 | 08/16/2019 9:51 AM | | | | | PST | | + + + + + | Pulse | 84 | 08/16/2019 9:51 AM | | | | | PST | | + + + + + | Temperature | 36.6 C (97.8 F) | 08/16/2019 9:51 AM | | | | | PST | | + + + + + | Respiratory Rate | - | - | | + + + + + | Oxygen Saturation | - | - | | + + + + + | Inhaled Oxygen | - | - | | | Concentration | | | | + + + + + | Weight | 80.3 kg (177 lb) | 08/16/2019 9:51 AM | | | | | PST | | + + + + + | Height | 154.9 cm (5' 1") | 08/16/2019 9:51 AM | | | | | PST | | + + + + + | Body Mass Index | 33.44 | 08/16/2019 9:51 AM | | | [...] + + documented as of this encounter Patient Instructions Patient Instructions July Meeks Tapper Operator - 08/16/2019 10:00 AM Ever macdonald t hat you have experienced exceptional care today and that you found our service to be courteo us and helpful. If you have any questions, you can send us a message/request using [employer] or call our o arvind at [phone]. To reach the Tapper Operator , jeanette cerda - [phone]- July SORIANO If you are unable to reach a nurse during clinic hours, please leave a detailed message. We check our messages often and return calls in a timely manner during clinic hours. Orders for labs or imaging: Please remember that Dr Bowles will only call you if somethin g is concerning AND needs to be addressed, otherwise all results will be discussed at your n ext office visit. You can also review your results on Kchart. If you are experiencing an emergency, please call 911 documented in this encounter Progress Notes Sudhir Bowles MD - 08/16/2019 10:00 AM PSTFormatting of this note might be differe nt from the original. Rheumatology New Patient / Outpatient CONSULT Referred by: ARSLAN Santana CC: RA, here to transfer care (currently ) HPI: Socorro Juarez is a 28 y.o. female who is being seen for the above. 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 Seen by Dr. Talbot in the past along with another Sharepoint Net Developer in [place] and [place]. Is currently 14 weeks followi ng up with OBGYN (not high risk). Follows up with urologist Dr. Dominguez in [place] for blad wendy stones. Had tried MTX , along with Enbrel, Humira (reaction), Taltz, and Cymbalta in the past. Her previous railroad construction director thought she might have psoriatic arthritis, her mother was recently diagnosed with psoriatic arthritis. She denies any skin rashes or psoriasis. 3-4 months ago was put on Prednisone for a flare up but not currently on it. Taking Tylenol right now. Was most currently on Taltz but became and had to stop. Pt feels the pain most at night in wrist and hands along with swelling in her elbows along with restless legs at night . Pt reports dry eyes and dry mouth with blurred vision uses eye drops systane. This is her fourth . Previous pregnancies have been uneventful, she did not follo w-up with larry operator previously. No history of miscarriages. Morning stiffness lasting >30mins Joint pain location: all over Quality: ache Severity: severe Duration: chronic Timing:All day Aggravated by: rest Relieved by: activity No history of skin rashes, oral ulcers, nasal ulcers, Raynaud's symptoms, digital ulcers, p leuritic chest pain, skin tightening, hair thinning, muscle weakness, dyspnea, cough, GERD I , July ADAMS , am personally taking down the notes in the presence of Sudhir delgado MD Chart review from scanned notes - PCP notes- RF, CCP neg Allergies Allergen Reactions Ciprofloxin Hcl [Ciprofloxacin Hcl] Shortness Of Breath Sulfamethoxazole W/Trimethoprim (Co-Trimoxazole) Shortness Of Breath Causes respiratory symptoms and hives Current Outpatient Medications on File Prior to Visit Medication Sig Dispense Refill meloxicam (MOBIC) 15 mg tablet Take 15 mg by mouth Daily. omeprazole (PRILOSEC) 20 mg capsule Take 20 mg by mouth every morning (before breakfast ). 27-0.8 mg multivitamin tablet Take 1 tablet by mouth Daily. ranitidine (ZANTAC) 25 MG effervescent tablet Take 25 mg by mouth 2 times daily. No current facility-administered medications on file prior to visit. Past Medical History: Diagnosis Date Anemia Asthma Cardiac abnormality Generalized anxiety disorder 08/16/2019 GERD (gastroesophageal reflux disease) Hypertension Injury of right rotator cuff Kidney problem Kidney stones Mass in neck Rheumatoid arthritis (HCC) Right shoulder strain Seronegative rheumatoid arthritis (HCC) Stomach ulcer Tachycardia History reviewed. No pertinent surgical history. Social History Socioeconomic History Marital status: Single Spouse name: Not on file Number of children: Not on file Years of education: Not on file Highest education level: Not on file Occupational History Not on file Social Needs Financial resource strain: Not on file Food insecurity: Worry: Not on file Inability: Not on file Transportation needs: Medical: Not on file Non-medical: Not on file Tobacco Use Smoking status: Former Smoker Smokeless tobacco: Never Used Substance and Sexual Activity Alcohol use: Never Frequency: Never Drug use: Never Sexual activity: Not on file Lifestyle Physical activity: Days per week: Not on file Minutes per session: Not on file Stress: Not on file Relationships Social connections: Talks on phone: Not on file Gets together: Not on file Attends gnosticism service: Not on file Active member of club or organization: Not on file Attends meetings of clubs or organizations: Not on file Relationship status: Not on file Intimate partner violence: Fear of current or ex partner: Not on file Emotionally abused: Not on file Physically abused: Not on file Forced sexual activity: Not on file Other Topics Concern Not on file Social History Narrative Not on file Family History Problem Relation Age of Onset Cancer Mother Hypertension Mother Stroke Maternal Aunt Hypertension Maternal Aunt Ovarian cancer Maternal Aunt Cancer Maternal Uncle Diabetes Maternal Grandmother Gout Maternal Grandmother Diabetes Paternal Grandmother Osteoarthritis Other Autoimmune problems in the family - mother hx PSA, MGM gout, Great maternal GM OA Has three children and current no history of miscarriages ROS Review of Systems Constitutional: Positive for fatigue. Negative for fever. HENT: Negative for mouth sores and sore throat. Dry mouth Eyes: Positive for visual disturbance. Negative for pain. Dry eyes Respiratory: Negative for shortness of breath. Cardiovascular: Negative for chest pain. Gastrointestinal: Negative for abdominal pain and blood in stool. Musculoskeletal: Positive for arthralgias and joint swelling. Skin: Negative for color change and rash. Neurological: Negative for dizziness and headaches. Psychiatric/Behavioral: Negative for confusion. Sudhir Cruz MD personally reviewed the ROS PE: BP (!) 131/94 | Pulse 84 | Temp 36.6 C (97.8 F) (Oral) | Ht 1.549 m (5' 1") | Wt 80 .3 kg (177 lb) | LMP 09/26/2018 (Exact Date) | No | BMI 33.44 kg/m Pain-7 Physical Exam HENT: Head: Atraumatic. Mouth/Throat: Mouth: Mucous membranes are dry. Eyes: Conjunctiva/sclera: Conjunctivae normal. Neck: Musculoskeletal: Normal range of motion. Cardiovascular: Rate and Rhythm: Normal rate. Pulmonary: Effort: Pulmonary effort is normal. Abdominal: General: There is no distension. Palpations: Abdomen is soft. Musculoskeletal: Comments: Musculoskeletal examination of the RIGHT and LEFT upper extremity, RIGHT and L EFT lower extremity, spine, ribs ,pelvis ,head and neck was performed. Pertinent positive fi ndings as follows: Hands: mild dactylitis on R 2nd digit R hand-MCPs 2nd and 3rd, PIPs, wrist, positive tenderness L hand-PIP CMC positive tenderness Elbows: synovitis negative, bilateral positive tenderness Feet: L foot-MTP compression Positive R foot-MTP compression positive Knees: R: Crepitus negative positive tenderness L:Crepitus negative positive tenderness Knee effusion negative Lymphadenopathy: Cervical: No cervical adenopathy. Skin: Findings: No rash. Neurological: Mental Status: She is alert. Labs: Admission on 03/18/2014, Discharged on 03/20/2014 Component Date Value Ref Range Status Amnisure, ROM 03/18/2014 Negative Negative Final ABO 03/18/2014 B Final Rh Type 03/18/2014 Positive Final Antibody Screen 03/18/2014 Negative Final WBC 03/18/2014 10.1 4.0 - 11.0 K/uL Final RBC 03/18/2014 3.86 3.70 - 5.20 M/uL Final Hemoglobin 03/18/2014 11.8 11.5 - 16.0 g/dL Final Hematocrit 03/18/2014 34.9 34.0 - 47.0 % Final MCV 03/18/2014 90.4 83.0 - 101.0 fL Final MCH 03/18/2014 30.7 28.0 - 35.0 pg Final MCHC 03/18/2014 33.9 32.0 - 36.0 g/dL Final RDW-CV 03/18/2014 13.5 <15.0 % Final Platelet Count 03/18/2014 125* 140 - 440 K/uL Final MPV 03/18/2014 9.8 fL Final Antibody Screen, External 07/19/2013 Negative Negative Final HGB, External 03/10/2014 11.3 Final ABORH EXTERNAL 08/29/2013 B Positive Final WBC 03/19/2014 18.1* 4.0 - 11.0 K/uL Final RBC 03/19/2014 3.72 3.70 - 5.20 M/uL Final Hemoglobin 03/19/2014 11.4* 11.5 - 16.0 g/dL Final Hematocrit 03/19/2014 34.0 34.0 - 47.0 % Final MCV 03/19/2014 91.3 83.0 - 101.0 fL Final MCH 03/19/2014 30.6 28.0 - 35.0 pg Final MCHC 03/19/2014 33.5 32.0 - 36.0 g/dL Final RDW-CV 03/19/2014 13.5 <15.0 % Final Platelet Count 03/19/2014 133* 140 - 440 K/uL Final MPV 03/19/2014 10.3 fL Final Assessment Assessment and Plan Visit Diagnoses and Associated Orders: Socorro was seen today for rheumatology appointment. Diagnoses and all orders for this visit: Pain in joint, multiple sites Rheumatoid arthritis of multiple sites with negative rheumatoid factor (HCC) She was diagnosed with seronegative rheumatoid arthritis at age 20. Was seen by her last r heumatologist in [facility] about 6 months ago, will obtain records. She is currently 14 weeks and is going well so far. We will check blood work today. She likely has an inflammatory arthritis, either psoriatic arthritis or seronegative rheuma toid arthritis. Had a thorough discussion with patient regarding implications of on underlying rh eumatologic disease, indications, risks and benefits with the use of corticosteroids and ot her immunomodulatory drugs. Effects on itself and on the fetus itself by the medic ation or the rheumatologic autoimmune condition discussed. Patient understands need for angelina se monitoring before, during and after with Rheumatology. Prescribed prednisone 10 mg daily for now for current flare. Discussed with patient fully implications of diagnosis, spectrum of their condition includi ng involvement (peripheral/oligoarthritis with or without spinal inflammation); and treatmen t as per current guidelines (ACR and EULAR). Indications for use of anti-TNF therapy, and pr ognosis associated with its use or non-usage discussed. Various available forms of anti-TNF therapy also discussed (dosing - q 1vs q2 vs q4 vs q8 weeks; administration IV vs SQ). Demario joe advised patient regarding localizing and constitutional nonlocalizing manifestations wh ich might suggest infection which should trigger a consult with his railroad construction director for evalu ation for infection; also advised to hold medication for 2 weeks even if flulike symptoms o r cold-like symptoms or other infections occur. Patient understands that there are other alt ernative options for disease modifying treatment and the expected usual results associated w ith the use of these medications. Cimzia would be a reasonable option for her given its side effect profile during and breast-feeding. Have advised her to follow up with pilot control operator Check Xrays after delivery to get a new baseline for her. Steroids: I had a lengthy discussion with the patient about the potential side effects of s teroids. Most common side effects are weight gain and mood instability (worsened anxiety). O ther side effects include but not limited to - development of facial hair (in women), hyp erglycemia, hyperlipidemia, glaucoma, cataracts, weight gain, hypertension, acne, infection, skin fragility and poor wound healing, skin bruising, muscle weakness, development of gastr itis and gastric ulcers, and increased risk for developing osteopenia/osteoporosis and osteo necrosis (AVN), which may need joint replacements .Patient understands to avoid NSAIDs while taking steroids. - CBC with Differential; Future - Comprehensive Metabolic Panel; Future - Sedimentation Rate; Future - C-Reactive Protein; Future - Hepatitis C Ab; Future - Hepatitis B Surface Ag; Future - Hepatitis B Core Ab, Total; Future - Quantiferon Gold; Future - SEEMA, IFA; Future - SS-A RO Ab,IgG, Serum; Future - SS-B LA Ab, IgG, Serum; Future High risk medication use Counseled regarding medication compliance as well as potential toxicities with medications such as cytopenias, liver abnormalities and risks for infection, and the need for routine bl ood work monitoring. Basic labs Monitored (CBC,CMP and ESR): Ordered today Other orders - predniSONE (DELTASONE) 10 mg tablet; Take 1 tablet by mouth Daily. Patient was given ample opportunity to ask questions. Patient will follow up with their primary care physician in regards to non-rheumatological symptoms listed under review of systems Patient was advised to contact our office if there are any change in their symptoms Return in about 4 weeks (around 09/13/2019). Note will be routed to the referring provider I,Sudhir Bowles MD, personally performed the services described in this documentation, wi th the scribe in my presence, and it is both accurate and complete. Dictation software [employer]/dictation services used, which may contain error for similar soun ding words even after review. Please do not hesitate to contact me for any clarification.Dianna ctronically signed by Sudhir Bowles MD at 08/16/2019 10:43 AM PSTdocumented in this encounter Plan of Treatment + +------+--------+ + + | Name | Type | Priori | Associated Diagnoses | Order Schedule | | | | ty | | | + +------+--------+ + + | SEEMA, IFA | Lab | Routin | Rheumatoid | Expected: | | | | e | Arthritis Of | 08/16/2019, Expires: | | | | | Multiple Sites With | 08/16/2020 | | | | | Negative Rheumatoid | | | | | | Factor (Hcc) | | + +------+--------+ + + | SS-A RO Ab,IgG, | Lab | Routin | Rheumatoid | Expected: | | Serum | | e | Arthritis Of | 08/16/2019, Expires: | | | | | Multiple Sites With | 08/16/2020 | | | | | Negative Rheumatoid | | | | | | Factor (Hcc) | | + +------+--------+ + + | SS-B LA Ab, IgG, | Lab | Routin | Rheumatoid | Expected: | | Serum | | e | Arthritis Of | 08/16/2019, Expires: | | | | | Multiple Sites With | 08/16/2020 | | | | | Negative Rheumatoid | | | | | | Factor (Hcc) | | + +------+--------+ + + documented as of this encounter Results Quantiferon Gold (08/16/2019 10:29 AM PST) + [...] | | | | | | at [facility], [address] | | | [address], [address], [facility] | | | | | | [address] | | | | + + + + + + + + | Specimen | + + | Blood | + + + + + + + | Performing | Address | City/State/Zipcode | Phone Number | | Organization | | | | + + + + + | REFERENCE LAB | [address] [facility] | [place] | [phone] | | [facility] | [address] | [address] | | | LABORATORY | | | | + + + + + | REFERENCE LAB | [address] [facility] | [place] | | | [facility] | [address] | [address] | | | LABORATORY | | | [...] LAB | | | Total | [facility];[address] [facility] | | [facility] | | | | Bl[address];[place] [address] | | LABORATORY | | + + + + + + + + | Specimen | + + | Blood | + + + + + + + | Performing | Address | City/State/Zipcode | Phone Number | | Organization | | | | + + + + + | REFERENCE LAB | [address] [place] [address] | [place], [place] | [phone] | | [facility] | [address] | [address] | | | LABORATORY | | | | + + + + + | REFERENCE LAB | [address] [place] [address] | [place], [place] | | | [facility] | [address] | [address] | | | LABORATORY | | | [...] LAB | | | | [facility];[address] [facility] | | [facility] | | | | Blvd;[place] [address] | | LABORATORY | | + + + + + + + + | Specimen | + + | Blood | + + + + + + + | Performing | Address | City/State/Zipcode | Phone Number | | Organization | | | | + + + + + | REFERENCE LAB | [address] [place] [address] | [place] | [phone] | | [facility] | [address] | [address] | | | LABORATORY | | | | + + + + + | REFERENCE LAB | [address] [place] [address] | [place] | | | [facility] | [address] | [address] | | | LABORATORY | | | [...] | | | | | performed at [facility];[address] | | | | | | [facility] | | | | | | [facility];[place] [address] | | | | | | | | | | + + + + + + + + | Specimen | + + | Blood | + + + + + + + | Performing | Address | City/State/Zipcode | Phone Number | | Organization | | | | + + + + + | REFERENCE LAB | [address] [facility] | [place], [place] | [phone] | | [facility] | [address] | [address] | | | LABORATORY | | | | + + + + + | REFERENCE LAB | [address] [place] [address] | [place], [place] | | | [facility] | [address] | [address] | | | LABORATORY | | | [...] REFERENCE | | | | performed at [facility];[address] | | LAB | | | | [place] | | [facility] | | | | Blvd;[place] [address] | | LABORATORY | | + + + + + + + + | Specimen | + + | Blood | + + + + + + + | Performing | Address | City/State/Zipcode | Phone Number | | Organization | | | | + + + + + | REFERENCE LAB | [address] [place] [address] [place] | [place] | [phone] | | [facility] | [address] | [address] | | | LABORATORY | | | | + + + + + | REFERENCE LAB | [address] [place] [address] | [place] | | | [facility] | [address] | [address] | | | LABORATORY | | | [...] REFERENCE | | | | performed at [facility];[address] | | LAB | | | | [place] | | [facility] | | | | [address];[place] [address] | | LABORATORY | | + + + + + + + + | Specimen | + + | Blood | + + + + + + + | Performing | Address | City/State/Zipcode | Phone Number | | Organization | | | | + + + + + | REFERENCE LAB | [address] [place] [address] | [place], [place] | [phone] | | [facility] | [address] | [address] | | | LABORATORY | | | | + + + + + | REFERENCE LAB | [address] [place] [address] | [place], [place] | | | [facility] | [address] | [address] | | | LABORATORY | | | [...] | | | | | performed at [facility];[address] | | | | | | [facility] | | | | | | Blvd;[place] [address] | | | | | | | | | | + + + + + + + + | Specimen | + + | Blood | + + + + + + + | Performing | Address | City/State/Zipcode | Phone Number | | Organization | | | | + + + + + | REFERENCE LAB | [address] [facility] | [place] | [phone] | | [facility] | [address] | [address] | | | LABORATORY | | | | + + + + + | REFERENCE LAB | [address] [facility] | [place] | | | [facility] | [address] | [address] | | | LABORATORY | | | | + + + + + CBC with Differential (08/16/2019 10:29 AM PST) [...] | | | Absolute | performed at TCL;[address] | [address] | LAB | | | | [place] | | [facility] | | | | [address];[place] [address] | | LABORATORY | | + + + + + + + + | Specimen | + + | Blood | + + + + + + + | Performing | Address | City/State/Zipcode | Phone Number | | Organization | | | | + + + + + | REFERENCE LAB | [address] [facility] | [place] | [phone] | | [facility] | [address] | [address] | | | LABORATORY | | | | + + + + + | REFERENCE LAB | [address] | [place] | | | [facility] | Bl[address]. | [address] | | | LABORATORY | | | | + + + + + documented in this encounter Visit Diagnoses + + | Diagnosis | + + | Pain in joint, multiple sites - Primary | + + | Rheumatoid arthritis of multiple sites with negative rheumatoid factor (HCC) | + + | High risk medication use Encounter for long-term (current) use of other medications | + + documented in this encounter
--- OUTSIDE RECORDS SUMMARY | ~2020-01-20 | XMS | Encounter Summary ---
Demographics + + + | Address | [address] | | | [place] [address] | + + + | Home Phone | | + + + | Preferred Language | Unknown | + + + | Marital Status | Single | + + + | Judaism Affiliation | Unknown | + + + | Race | Unknown | + + + | Ethnic Group | Unknown | + + + Author + + + | Author | [facility] | | | and [place] | + + + | Organization | [facility] | | | and [place] [...] Team Providers + +------+ + | Care Manager Exchange Name | Role | Phone | + +------+ + | Sincere Haddad | PCP | | + +------+ + Reason for Visit + + + | Reason | Comments | + + + | Follow-up | RA | + + + Encounter Details +--------+---------+ + + + | Date | Type | Department | Care Team | Description | +--------+---------+ + + + | 01/15/ | Office | [facility] | Juan Carlos Btets, | Rheumatoid arthritis | | 2020 | Visit | RHEUMATOLOGY [address] | PA-C [address] | of multiple sites | | | | [address] | [address] | with negative | | | | [place], [place] | [place] [address] | rheumatoid factor | | | | [address] | [phone] | (HCC) (Primary Dx); | | | | [phone] | | High risk medication | | | | | | use; Pain in joint, | | | | | | multiple sites | +--------+---------+ + + + Social History [...] of this encounter Patient Instructions Patient Instructions Leila Barclay, Print Operator - 01/16/2020 3:20 PM PDTWe hope that you have experienced exceptional care today and that you found our service to be court eous and helpful. If you have any questions or need medication refills you can send us a message/request pasha Lester or call our office at [phone]. To reach my TN-C type extension [phone]. If you are unable to reach a nurse during clinic hours, please leave a detailed message. We check our messages often and return calls in a timely manner during clinic hours. Orders for labs or imaging: Please remember that Krunal JAY will only call you if so mething of concern needs to be addressed, otherwise all result will be discussed at your nex t office visit. You can also [facility] If you are experiencing an emergency, please call 911 documented in this encounter Miscellaneous Notes Assessment & Plan Note - Juan Carlos Betts PA-C - 01/16/2020 12:20 PM PDTAssociated Problem( s): High risk medication useThe patient was counseled regarding medication compliance and ro utine laboratory monitoring due to the potential toxicities with rheumatological medications such as but not limited to; hematologic toxicity, hepatotoxicity, renal dysfunction and inc reased risks for infections. Basic Labs Monitored (CBC, CMP, ESR and CRP): Ordered today during clinic visit These labs are routinely ordered due to high risk medication the patient is currently takin g - Monitored for cytopenias, liver toxicity, renal dysfunction and disease activity. Hepatitis Panel: Negative - 08/2019 This will be checked every 5 years based on the patients risk factors or at time of biologi c drug change. Quantiferon TB Gold: Negative - 08/2019 This will be checked initially before the start of a biologic medication as well as yearly if the patient remains on a biologic. The patient is at risk for exposure due to the geograp hical area and the biologic immunodepressant has the potential to activate latent TB. Electr onically signed by Juan Carlos Betts PA-C at 01/16/2020 12:20 PM PDTAssessment & Plan Note - Juan Carlos Garcia PA-C - 01/16/2020 12:20 PM PDTAssociated Problem(s): Rheumatoid arthritis (H CC)The patient returns to the clinic for a follow up appointment. She was diagnosed with RS at the age of 20. She is currently . We were unable to obtain her rheumatology recor ds we will try to request these again. We will also redo her serology blood work. She can co ntinue prednisone 10mg daily as long as her OBGYN is in agreement. We will check her blood w ork and see her back in 3-4 months 20 12:20 PM PDTdocumented in this encounter Plan of Treatment Not on filedocumented as of this encounter Visit Diagnoses + + | Diagnosis | + + | Rheumatoid arthritis of multiple sites with negative rheumatoid factor (HCC) - Primary | + + | High risk medication use Encounter for long-term (current) use of other medications | + + | Pain in joint, multiple sites | + + documented in this encounter"
--- OUTSIDE RECORDS SUMMARY | ~2020-01-20 | XMS | Encounter Summary ---
Demographics + + + | Address | [address] | | | [place] [address] | + + + | Home Phone | | + + + | Preferred Language | Unknown | + + + | Marital Status | Single | + + + | Christian Affiliation | Unknown | + + + | Race | Unknown | + + + | Ethnic Group | Unknown | + + + Author + + + | Author | [facility] | | | and [place] | + + + | Organization | [facility] | | | and [...] Team Providers + +------+ + | Care Sustainable Products Marketing Manager Name | Role | Phone | + +------+ + | Sincere Haddad | PCP | | + +------+ + Reason for Visit + +--------+ + | Reason | Onset | Comments | | | Date | | + +--------+ + | Records Request | 08/29/ | | | | 2020 | | + +--------+ + Encounter Details +--------+ + + + + | Date | Type | Department | Care Team | Description | +--------+ + + + + | 08/29/ | Telephone | [facility] | Sudhir Bowles | Records Request | | 2019 | | [address] | MD [address] | | | | | [address] | [address] | | | | | [place], [place] | [place] [address] | | | | | [address] | [phone] | | | | | [phone] | | | +--------+ + + + [...] Miscellaneous Notes Telephone Encounter - July Meeks, Animal Behaviourist - 08/29/2019 8:34 AM PSTMailed l ast chart note to patient due to fax not going through after several attempts. Electronicvandana y signed by July Meeks Animal Behaviourist at 08/29/2019 8:35 AM PSTTelephone Encounter - July Meeks Animal Behaviourist - 08/29/2019 8:34 AM PST----- Message from Ashley oGldberg sent at 08/20/2019 1:45 PM PST ----- Contact: Patient Patient called and asked if her chart notes from her last visit could be faxed to her OBGYN so her could be considered a high risk. thanks. docuyi ented in this encounter Plan of Treatment Not on filedocumented as of this encounter Visit Diagnoses Not on filedocumented in this encounter"
--- OUTSIDE RECORDS SUMMARY | ~2020-01-20 | XMS | Encounter Summary ---
Demographics + + + | Address | [address] | | | [place] [address] | + + + | Home Phone | | + + + | Preferred Language | Unknown | + + + | Marital Status | Single | + + + | Zoroastrianism Affiliation | Unknown | + + + | Race | Unknown | + + + | Ethnic Group | Unknown | + + + Author + + + | Author | [facility] | | | and [place] | + + + | Organization | [facility] | | | and [place] [...] Team Providers + +------+ + | Care Faucet Polisher Name | Role | Phone | + +------+ + | Sincere Haddad | PCP | | + +------+ + Reason for Visit + +--------+ + | Reason | Onset | Comments | | | Date | | + +--------+ + | Records Request | 10/02/ | | | | 2020 | | + +--------+ + Encounter Details +--------+ + + + + | Date | Type | Department | Care Team | Description | +--------+ + + + + | 10/02/ | Telephone | [facility] | Sudhir Bowles | Records Request | | 2019 | | [address] | [address] | | | | | [address] | [address] | | | | | [place], [place] | [place] [address] | | | | | [address] | [phone] | | | | | [phone] | | | +--------+ + + + [...] encounter Miscellaneous Notes Telephone Encounter - July Meeks Drop Count Associate - 10/08/2019 10:02 AM PDTReceived fax back stating patient was never seen there only preloaded- abstracted. Called and left m essage to see if she had the contact number to the kitchen runner she had seen previous to u s. el ephone Encounter - July Meeks Drop Count Associate - 10/03/2019 9:49 AM PDTFaxed cover sheet to Dr. Francis rheumatology with confirmation [phone] requesting last chart notes . docu mented in this encounter Plan of Treatment Not on filedocumented as of this encounter Visit Diagnoses Not on filedocumented in this encounter"
--- OUTSIDE RECORDS SUMMARY | ~2020-01-20 | XMS | Encounter Summary ---
Demographics + + + | Address | [address] | | | [place] [address] | + + + | Home Phone | | + + + | Preferred Language | Unknown | + + + | Marital Status | Single | + + + | Church Affiliation | Unknown | + + + | Race | Unknown | + + + | Ethnic Group | Unknown | + + + Author + + + | Author | Merged With [facility] | | | and [place] | + + + | Organization | Merged With [facility] | | | and [facility] [...] Team Providers + +------+ + | Care Repairer Wood Furniture Name | Role | Phone | + +------+ + | Sincere Haddad | PCP | | + +------+ + Reason for Visit Evaluate & Treat (Routine) +--------+--------+ + + [...] | | | | | unspecified | HODA | BHUPINDER REBOLLEDO | | | | | ([facility]) | [address] | [place] | | | | | | [place], | [address] | | | | | | [place] [address] | Phone: | | | | | | Phone: | [phone] | | | | | | [phone] | Fax: | | | | | | Fax: | [phone] | | | | | | [phone] | | +--------+--------+ + + + + Encounter Details +--------+---------+ + + + | Date | Type | Department | Care Team | Description | +--------+---------+ + + + | 10/16/ | Office | [facility] | Juan Carlos Betts, | Rheumatoid arthritis | | 2020 | Visit | RHEUMATOLOGY [address] | PA-C [address] | of multiple sites | | | | [place] | [facility] | with negative | | | | [place] | [place] [address] | rheumatoid factor | | | | [address] | [phone] | (HCC) (Primary Dx); | | | | [phone] | | High risk medication | | | | | | use | +--------+---------+ + + + Social [...] + + + + | Height | - | - | | + [...] of this encounter Patient Instructions Patient Instructions Keena Gonzalez, Population Health Coach - 10/17/2019 3:20 PM PDTWe hop e that you have experienced exceptional care today and that you found our service to be cour teous and helpful. ? If you have any questions/concerns or need medication refills you can send us a message/r equest using Looxcie or by calling our office at [phone]. o If you would like to reach my medical practice administrator, Silvia Gonzalez please call [phone] Ext: [phone] ? If you are unable to reach a nurse during clinic hours, please leave a detailed message. We check our messages often and return calls in a timely manner during clinic hours. ? Orders for labs or imaging: Please remember that Juan Carlos Betts PA-C will only call you i f something of concern needs to be addressed, otherwise all result will be discussed at your next office visit. You can also look at your results on Looxcie. If you are experiencing an emergency, please call 911 documented in this encounter Progress Notes Juan Carlos Betts PA-C - 10/17/2019 3:20 PM PDTFormatting of this note might be different f rom the original. Subjective: Rheumatology New Patient / Outpatient CONSULT Referred by: ARSLAN Santana CC: RA, here to transfer care (currently ) HPI: Soocrro Juarez is a 28 y.o. female who is being seen for the above. 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 Se[address] Dr. 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 Is currently 14 weeks followi ng up with OBGYN (not high risk). Follows up with urologist Dr. Dominguez in [place] for blad wendy stones. Had tried MTX , along with Enbrel, Humira (reaction), Taltz, and Cymbalta in the past. 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 No history of miscarriages. Morning stiffness lasting >30mins Joint pain location: all over Quality: ache Severity: severe Duration: chronic Timing:All day Aggravated by: rest Relieved by: activity History of Present Illness Visit Diagnosis: Seronegative RA Appointment type: Follow up Last Seen On: 08/16/2019by Juan Carlos Betts PA-C Today's Date: 10/17/2019 Any changes in overall health since last visit: No Current rheumatological medications: prednisone 10mg Current chief complaint: The patient states that she is 6.5 month . She is having s ome sciatica at this moment. She states she has been having some inflammation. She states sh e is on prednisone at the moment. She states that she is in a flare at the moment. Rating Scale: 5 Morning stiffness lasting: >30 Minutes Quality: Stiff Severity: Mild Duration: 1-3 months Timing: Morning>Evening Aggravated by: Rest/Sleep Relieved by: Activity/Movement The patient denies any signs of: infection, fever and abdominal pain The following portions of the patient's history were reviewed and updated as appropriate an d is available with the EMR: allergies, current medications, past family history, past medic al history, past social history, past surgical history and problem list. Review of Systems Constitutional: Negative for fatigue and fever. HENT: Negative for mouth sores. Eyes: Positive for pain and visual disturbance. Negative for redness. Respiratory: Negative for cough and shortness of breath. Cardiovascular: Negative for chest pain. Gastrointestinal: Positive for nausea. Negative for abdominal pain and blood in stool. Genitourinary: Negative for dysuria and hematuria. Musculoskeletal: Positive for arthralgias, back pain and joint swelling. Skin: Positive for rash. Neurological: Positive for numbness and headaches. Psychiatric/Behavioral: The patient is not nervous/anxious. IJuan Carlos PA-C, reviewed the above ROS. Past Medical History: Diagnosis Date Anemia Asthma Cardiac abnormality Generalized anxiety disorder 08/16/2019 GERD (gastroesophageal reflux disease) Hypertension Injury of right rotator cuff Kidney problem Kidney stones Mass in neck Rheumatoid arthritis (HCC) Right shoulder strain Seronegative rheumatoid arthritis (HCC) Stomach ulcer Tachycardia Current Outpatient Medications: meloxicam (MOBIC) 15 mg tablet, Take 15 mg by mouth Daily., Disp: , Rfl: omeprazole (PRILOSEC) 20 mg capsule, Take 40 mg by mouth every morning (before breakfa st)., Disp: , Rfl: predniSONE (DELTASONE) 10 mg tablet, Take 1 tablet by mouth Daily., Disp: 30 tablet, R fl: 1 27-0.8 mg multivitamin tablet, Take 1 tablet by mouth Daily., Disp: , Rfl: ranitidine (ZANTAC) 25 MG effervescent tablet, Take 25 mg by mouth 2 times daily., Dis p: , Rfl: Family History Problem Relation Age of Onset Cancer Mother Hypertension Mother Stroke Maternal Aunt Hypertension Maternal Aunt Ovarian cancer Maternal Aunt Cancer Maternal Uncle Diabetes Maternal Grandmother Gout Maternal Grandmother Diabetes Paternal Grandmother Osteoarthritis Other Social History Socioeconomic History Marital status: Single [...] file Gets together: Not on file Attends congregation service: Not on file Active member of [...] file Social History Narrative Not on file Allergies Allergen Reactions Ciprofloxin Hcl [Ciprofloxacin Hcl] Shortness Of Breath Sulfamethoxazole W/Trimethoprim (Co-Trimoxazole) Shortness Of Breath Causes respiratory symptoms and hives Trimethoprim Other (See Comments) Objective: BP 128/83 | Pulse 103 | Temp 36.6 C (97.8 F) (Temporal) | Wt 82.1 kg (181 lb) | SpO 2 99% | BMI 34.20 kg/m Physical Exam Constitutional: General: She is not in acute distress. Appearance: She is well-developed. HENT: Head: Normocephalic and atraumatic. Eyes: General: Right eye: No discharge. Left eye: No discharge. Conjunctiva/sclera: Conjunctivae normal. Pupils: Pupils are equal, round, and reactive to light. Neck: Musculoskeletal: Normal range of motion. Pulmonary: Effort: Pulmonary effort is normal. No respiratory distress. Abdominal: General: There is no distension. Skin: General: Skin is warm and dry. Findings: No rash. Neurological: Mental Status: She is alert and oriented to person, place, and time. Lab Data: Lab Results Component Value Date WBC 9.02 08/16/2019 HGB 12.6 08/16/2019 HCT 35.6 08/16/2019 MCV 89.4 08/16/2019 MCH 31.7 08/16/2019 MCHC 35.4 08/16/2019 PLT 165 08/16/2019 MPV 12.7 08/16/2019 Lab Results Component Value Date NA 140 08/16/2019 K 3.7 08/16/2019 CL 113 (H) 08/16/2019 CO2 19 (L) 08/16/2019 ANIONGAP 12 08/16/2019 GLU 88 08/16/2019 CALCIUM 9.2 08/16/2019 ALT 16 08/16/2019 ALBUMIN 3.2 (L) 08/16/2019 Lab Results Component Value Date CRP 0.7 (H) 08/16/2019 Lab Results Component Value Date ESR 26 (H) 08/16/2019 Imaging: No results found for this or any previous visit (from the past 360 hour(s)). Laboratory results were reviewed in [facility] as well as chart notes and imaging from other prov ider(s) since their last rheumatology clinic visit, Please see the EMR for further detail. Assessment and Plan: Visit Diagnoses and Associated Orders: Problem List Items Addressed This Visit Musculoskeletal Rheumatoid arthritis (HCC) - Primary The patient returns to the clinic for a [...] and see her back in 3-4 months Relevant Orders CBC with Differential Sedimentation Rate Comprehensive Metabolic Panel C-Reactive Protein SEEMA, IFA SS-A RO Ab,IgG, Serum SS-B LA Ab, IgG, Serum Rheumatoid Factor IgA, IgG and IgM CCP Antibodies, IgG IgA Other High risk medication use The patient was counseled regarding medication compliance and routine laboratory monitori ng due to the potential toxicities with rheumatological medications such as but not limited to; hematologic toxicity, hepatotoxicity, renal dysfunction and increased risks for infectio ns. Basic Labs Monitored (CBC, CMP, ESR and [...] has the potential to activate latent TB. Relevant Orders CBC with Differential Sedimentation Rate Comprehensive Metabolic Panel C-Reactive Protein SEEMA, IFA SS-A RO Ab,IgG, Serum SS-B LA Ab, IgG, Serum Rheumatoid Factor IgA, IgG and IgM CCP Antibodies, IgG IgA Risks and benefits of a treatment plan were explained to patient. Patient will follow up with their primary care physician in regards to non-rheumatological symptoms listed under review of systems. Patient was advised to contact our office if there are any change in their symptoms. This is a patient with multiple medical problems that require considerable time and reflect ion in order to properly evaluate and manage. Avoidance of adverse drug interactions and opt imization of treatment/therapy is the primary goal. Complex analysis and decision making was involved in today's visit. Procedure Documentation: Procedures documente d in this encounter Miscellaneous Notes Assessment & Plan Note - Juan Carlos Betts PA-C - 10/17/2019 2:56 PM PDTAssociated Problem( s): High risk medication [...] signed by Juan Carlos Betts PA-C at 10/17/2019 2:57 PM PDTAssessment & Plan Note - S Juan Carlos styles PA-C - 10/17/2019 1:56 PM PDTAssociated Problem(s): Rheumatoid arthritis (H CC)The [...] and see her back in 3-4 months documented in this encounter Plan of Treatment + +------+--------+ + + | Name | Type | Priori | Associated Diagnoses | Order Schedule | | | | ty | | | + +------+--------+ + + | CBC with | Lab | Routin | Rheumatoid | Every 12 weeks for 4 | | Differential | | e | Arthritis Of | Occurrences | | | | | Multiple Sites With | starting 10/17/2019 | | | | | Negative Rheumatoid | until 10/14/2020, 1 | | | | | Factor (Hcc) High | completed | | | | | risk medication use | | + +------+--------+ + + | Sedimentation Rate | Lab | Routin | Rheumatoid | Every 12 weeks for 6 | | | | e | Arthritis Of | Occurrences | | | | | Multiple Sites With | starting 10/17/2019 | | | | | Negative Rheumatoid | until 04/15/2021, 1 | | | | | Factor ([facility]) High | completed | | | | | risk medication use | | + +------+--------+ + + | Comprehensive | Lab | Routin | Rheumatoid | Every 12 weeks for 6 | | Metabolic Panel | | e | Arthritis Of | Occurrences | | | | | Multiple Sites With | starting 10/17/2019 | | | | | Negative Rheumatoid | until 04/15/2021, 1 | | | | | Factor (Hcc) High | completed | | | | | risk medication use | | + +------+--------+ + + | C-Reactive Protein | Lab | Routin | Rheumatoid | Every 12 weeks for 6 | | | | e | Arthritis Of | Occurrences | | | | | Multiple Sites With | starting 10/17/2019 | | | | | Negative Rheumatoid | until 04/15/2021, 1 | | | | | Factor (Hcc) High | completed | | | | | risk medication use | | + +------+--------+ + + documented as of this encounter Results CCP Antibodies, IgG IgA (10/17/2019 2:55 PM PDT) + + + + + + | Component | Value | Ref Range | Performed | Pathologist | | | | | At | Signature | + + + + + + | Cyclic | 8Comment: | 0 - 19 units | REFERENCE | | | citrullinat | | | LAB | | | ed peptide | Negative | | [facility] | | | Ab.IgA+IgG | <20 | | LABORATORY | | | | | | | | | | Weak positive 20 | | | | | | - 39 | | | | | | | | | | | | Moderate positive 40 - | | | | | | 59 | | | | | | Strong | | | | | | positive | | | | | | >59Testing performed | | | | | | by [facility], [address] [place] [address] | | | | | | [place] | | | | | | [address] | | | | + + + + + + + + | Specimen | + + | Blood | + + + + + + + | Performing | Address | City/State/Zipcode | Phone Number | | Organization | | | | + + + + + | REFERENCE LAB | [address] [place] [address] | [place] | [phone] | | [facility] | [address] | [address] | | | LABORATORY | | | | + + + + + | REFERENCE LAB | [address] [place] [address] | [place] | | | [facility] | [address] | [address] | | | LABORATORY | | | | + + + + + Rheumatoid Factor IgA, IgG and IgM (10/17/2019 2:55 PM PDT) + + + + + + | Component | Value | Ref Range | Performed | Pathologist | | | | | At | Signature | + + + + + + | Rheumatoid | 11.0Comment: Reference | EU/mL | REFERENCE | | | Factor IgG | Range:Negative: < 20 | | LAB | | | | EU/mlBorderline/Equivoca | | [facility] | | | | l: 20-25 EU/mlPositive: | | LABORATORY | | | | > 25 EU/ml | | | | | |Positive: > 25 EU/ml | | | | | | | | | | + + + + + + | Rheumatoid | 11.3Comment: Reference | EU/mL | REFERENCE | | | Factor IgA | Range:Negative: < 20 | | LAB | | | | EU/mlBorderline/Equivoca | | [facility] | | | | l: 20-25 EU/mlPositive: | | LABORATORY | | | | > 25 EU/ml | | | | | |Positive: > 25 EU/ml | | | | | | | | | | + + + + + + | Rheumatoid | 4.7Comment: Reference | IU/mL | REFERENCE | | | Factor IgM | Range:Negative: < 10 | | LAB | | | | IU/mlBorderline/Equivoca | | [facility] | | | | l: 10-12.5 | | LABORATORY | | | | IU/mlPositive: > 12.5 | | | | | | IU/mlThe presence of | | | | | | abnormal levels of all | | | | | | three rheumatoidfactor | | | | | | (RF) isotypes has a | | | | | | specificity of 99% for | | | | | | RheumatoidArthritis. | | | | | | IgA- RF alone can occur | | | | | | in Henoch | | | | | | Schoenleinpurpura. RF in | | | | | | any isotype combination | | | | | | may be found | | | | | | inhepatitis C, Sjogren | | | | | | syndrome, and other | | | | | | chronic infections.*This | | | | | | test has been developed | | | | | | and performance | | | | | | parametershave been | | | | | | validated by [employer] | | | | | | [employer] This | | | | | | test hasnot been | | | | | | approved by the U.S. | | | | | | Food and Drug | | | | | | Administration(FDA); | | | | | | however, US FDA approval | | | | | | is not required for | | | | | | clinicaluse. It is not | | | | | | intended that clinical | | | | | | diagnosis and | | | | | | patientmanagement | | | | | | decisions be made using | | | | | | these results alone.This | | | | | | test has been validated | | | | | | using serum samples. | | | | | | Themanufacturer has not | | | | | | determined the efficacy | | | | | | of this testwhen | | | | | | performed on CSF, | | | | | | plasma, joint or pleural | | | | | | fluidspecimens. The | | | | | | performance | | | | | | characteristics of this | | | | | | test weredetermined by | | | | | | [employer] | | | | | | Inc.Borderline/Equivocal | | | | | | RF results warrant | | | | | | redraw and retestingto | | | | | | confirm.Testing | | | | | | performed at [employer] | | | | | | [employer] [facility], [address] | | | | | | [facility] | | | | | | [address],[place], [place] | | | | | | [phone]. | | | | + + + + + + + + | Specimen | + + | Blood | + + + + + + + | Performing | Address | City/State/Zipcode | Phone Number | | Organization | | | | + + + + + | REFERENCE LAB | [address] | [place] | [phone] | | [facility] | [address] | [address] | | | LABORATORY | | | | + + + + + | REFERENCE LAB | [address] | [place], [place] | | | [facility] | Blvd. | [address] | | | LABORATORY | | | | + + + + + SS-B LA Ab, IgG, Serum (10/17/2019 2:55 PM PDT) + + + + + + | Component | Value | Ref Range | Performed | Pathologist | | | | | At | Signature | + + + + + + | SS-B | <0.2Comment: Testing | 0.0 - 0.9 AI | REFERENCE | | | Autoantibod | performed at [facility], [address] | | LAB | | | y | [facility] | | [facility] | | | | [place] [address] | | LABORATORY | | + + + + + + + + | Specimen | + + | Blood | + + + + + + + | Performing | Address | City/State/Zipcode | Phone Number | | Organization | | | | + + + + + | REFERENCE LAB | [address] [place] [address] | [place], [place] | [phone] | | [facility] | [address] | [address] | | | LABORATORY | | | | + + + + + | REFERENCE LAB | [address] [place] [address] | [place] | | | [facility] | [address]. | [address] | | | LABORATORY | | | | + + + + + SS-A RO Ab,IgG, Serum (10/17/2019 2:55 PM PDT) + + + + + + | Component | Value | Ref Range | Performed | Pathologist | | | | | At | Signature | + + + + + + | SS-A | <0.2Comment: Testing | 0.0 - 0.9 AI | REFERENCE | | | Autoantibod | performed at [facility], [address] | | LAB | | | y | [facility] | | [facility] | | | | [place] [address] | | LABORATORY | | + + + + + + + + | Specimen | + + | Blood | + + + + + + + | Performing | Address | City/State/Zipcode | Phone Number | | Organization | | | | + + + + + | REFERENCE LAB | [address] [place] [address] | [place], [place] | [phone] | | [facility] | [address] | [address] | | | LABORATORY | | | | + + + + + | REFERENCE LAB | [address] [place] [address] | [place], [place] | | | [facility] | [address] | [address] | | | LABORATORY | | | | + + + + + BLAS STEPHENSON (10/17/2019 2:55 PM PDT) + + + + + + | Component | Value | Ref Range | Performed | Pathologist | | | | | At | Signature | + + + + + + | SEMEA | NegativeComment: | | REFERENCE | | | | | | LAB | | | | | | [facility] | | | | Negative <1:80 | | LABORATORY | | | | | | | | | | | | | | | | Borderline 1:80 | | | | | | | | | | | | | | | | | | Positive >1:80 | | | | + + + + + + | Please | (See Below)Comment: SEEMA | | REFERENCE | | | Note: | Multiplex methodology | | LAB | | | | was designed to detect | | [facility] | | | | up to 11 antibodiesof | | LABORATORY | | | | the 100+ antibodies that | | | | | | may be detected by SEEMA | | | | | | IFA methodology.Testing | | | | | | performed at [facility], [address] | | | | | | [place] | | | | | | [place] [address] | | | | + + + + + + + + | Specimen | + + | Blood | + + + + + + + | Performing | Address | City/State/Zipcode | Phone Number | | Organization | | | | + + + + + | REFERENCE LAB | [address] [place] [address] | [place], [place] | [phone] | | [facility] | [address] | [address] | | | LABORATORY | | | | + + + + + | REFERENCE LAB | [address] [place] [address] | [place], [place] | | | [facility] | [address]. | [address] | | | LABORATORY | | | | + + + + + C-Reactive Protein (10/17/2019 2:55 PM PDT) + + + + + + | Component | Value | Ref Range | Performed | Pathologist | | | | | At | Signature | + + + + + + | CRP | 0.7 (H)Comment: Testing | <0.5 mg/dL | REFERENCE | | | | performed at [facility] [address] | | LAB | | | | [place] | | [facility] | | | | [address];[place] [address] | | LABORATORY | | + + + + + + + + | Specimen | + + | Blood | + + + + + + + | Performing | Address | City/State/Zipcode | Phone Number | | Organization | | | | + + + + + | REFERENCE LAB | [address] [place] [address] | [place] | [phone] | | [facility] | [address] | [address] | | | LABORATORY | | | | + + + + + | REFERENCE LAB | [address] [place] [address] | [place], [place] | | | [facility] | [address]. | [address] | | | LABORATORY | | | | + + + + + Comprehensive Metabolic Panel (10/17/2019 2:55 PM PDT) + + + + + + | Component | Value | Ref Range | Performed | Pathologist | | | | | At | Signature | + + + + + + | Na | 139 | 135 - 145 | REFERENCE | | | | | mmol/L | LAB | | | | | | [facility] | | | | | | LABORATORY | | + + + + + + | K | 3.6 | 3.5 - 4.9 | REFERENCE | | | | | mmol/L | LAB | | | | | | [facility] | | | | | | LABORATORY | | + + + + + + | Cl | 109 | 99 - 109 mmol/L | REFERENCE | | | | | | LAB | | | | | | [facility] | | | | | | LABORATORY | | + + + + + + | CO2 | 21 (L) | 23 - 32 mmol/L | REFERENCE | | | | | | LAB | | | | | | [facility] | | | | | | LABORATORY | | + + + + + + | Anion Gap | 13 | 5 - 20 mmol/L | REFERENCE | | | | | | LAB | | | | | | [facility] | | | | | | LABORATORY | | + + + + + + | Glucose | 78 | 65 - 99 mg/dL | REFERENCE | | | | | | LAB | | | | | | [facility] | | | | | | LABORATORY | | + + + + + + | BUN | 7 (L) | 8 - 25 mg/dL | [...] + + + + | BUN/Creatin | 14 | | REFERENCE | | | ine Ratio | | | LAB | | | | | | [facility] | | | | | | LABORATORY | | + + + + + + | Calcium | 9.0 | 8.5 - 10.5 | REFERENCE | [...] + + + + | Albumin | 3.0 (L) | 3.6 - 5.0 g/dL | REFERENCE | | | | | | LAB | | | | | | [facility] | | | | | | LABORATORY | | + + + + + + | Globulin | 3.8 | 1.3 - 4.9 g/dL | REFERENCE | | | | | | LAB | | | | | | [facility] | | | | | | LABORATORY | | + + + + + + | A/G Ratio | 0.8 (L) | 1.0 - 2.4 | REFERENCE [...] + + + | ALK PHOS | 67 | 35 - 115 U/L | REFERENCE | | | | | | LAB | | | | | | [facility] | | | | | | LABORATORY | | + + + + + + | AST | 14 | 10 - 45 U/L | REFERENCE [...] | | | | | performed at [facility] [address] | | | | | | [facility] | | | | | | Blvd;[place] [address] | | | | | | | | | | + + + + + + + + | Specimen | + + | Blood | + + + + + + + | Performing | Address | City/State/Zipcode | Phone Number | | Organization | | | | + + + + + | REFERENCE LAB | [address] | [place] | [phone] | | [facility] | [address] | [address] | | | LABORATORY | | | | + + + + + | REFERENCE LAB | [address] | [place] | | | [facility] | Blvd. | [address] | | | LABORATORY | | | | + + + + + Sedimentation Rate (10/17/2019 2:55 PM PDT) + + + + + + | Component | Value | Ref Range | Performed | Pathologist | | | | | At | Signature | + + + + + + | ESR | 36 (H)Comment: Testing | 0 - 20 mm/Hr | REFERENCE | | | | performed at [facility] [address] | | LAB | | | | [place] | | [facility] | | | | Blvd;[place] [address] | | LABORATORY | | + + + + + + + + | Specimen | + + | Blood | + + + + + + + | Performing | Address | City/State/Zipcode | Phone Number | | Organization | | | | + + + + + | REFERENCE LAB | [address] [place] [address] | [place], [place] | [phone] | | [facility] | [address]. | [address] | | | LABORATORY | | | | + + + + + | REFERENCE LAB | [address] [place] [address] | [place] | | | [facility] | Bl[address]. | [address] | | | LABORATORY | | | | + + + + + CBC with Differential (10/17/2019 2:55 PM PDT) + + + + + + | Component | Value | Ref Range | Performed | Pathologist | | | | | At | Signature | + + + + + + | WBC | 11.64 (H) | 3.80 - 11.00 | REFERENCE | | | | | K/uL | LAB | | | | | | [facility] | | | | | | LABORATORY | | + + + + + + | Red Blood | 3.69 (L) | 3.70 - 5.10 | REFERENCE | | | Cells | | M/uL | LAB | | | | | | [facility] | | | | | | LABORATORY | | + + + + + + | Hemoglobin | 12.2 | 11.3 - 15.5 | REFERENCE | | | | | g/dL | LAB | | | | | | [facility] | | | | | | LABORATORY | | + + + + + + | Hematocrit | 34.6 | 34.0 - 46.0 % | REFERENCE | | | | | | LAB | | | | | | [facility] | | | | | | LABORATORY | | + + + + + + | MCV | 93.8 | 80.0 - 100.0 fl | REFERENCE | | | | | | LAB | | | | | | [facility] | | | | | | LABORATORY | | + + + + + + | [facility] | 32.9 | 27.0 - 34.0 pg | REFERENCE | | | | | | LAB | | | | | | [facility] | | | | | | [facility]ORAT[facility] | | + + + + + + | MCHC | 35.1 | 32.0 - 35.5 | REFERENCE | | | | | g/dL | LAB | | | | | | [facility] | | | | | | LABORATORY | | + + + + + + | RDW-SD | 45.1 | 37 - 53 fl | REFERENCE | | | | | | LAB | | | | | | [facility] | | | | | | LABORATORY | | + + + + + + | Platelet | 174 | 150 - 400 K/uL | REFERENCE | | | Count | | | LAB | | | | | | [facility] | | | | | | LABORATORY | | + + + + + + | MPV | 10.6 | fl | REFERENCE | | | [...] + + + + | % | 79.64 | % | REFERENCE | | | Neutrophils | | | LAB | | | | | | [facility] | | | | | | LABORATORY | | + + + + + + | % | 16.00 | % | REFERENCE | | | Lymphocytes | | | LAB | | | | | | [facility] | | | | | | LABORATORY | | + + + + + + | Monocyte % | 3.70 | % | REFERENCE | | | | | | LAB | | | | | | [facility] | | | | | | LABORATORY | | + + + + + + | Eosinophils | 0.26 | % | REFERENCE | | | % | | | LAB | | | | | | [facility] | | | | | | LABORATORY | | + + + + + + | Basophils % | 0.40 | % | REFERENCE | | | | | | LAB | | | | | | [facility] | | | | | | LABORATORY | | + + + + + + | Neutrophils | 9.27 (H) | 1.90 - 7.40 | REFERENCE | | | , Absolute | | K/uL | LAB | | | | | | [facility] | | | | | | LABORATORY | | + + + + + + | Absolute | 1.86 | 1.00 - 3.90 | REFERENCE | | | Lymphocytes | | K/uL | LAB | | | | | | [facility] | | | | | | LABORATORY | | + + + + + + | Absolute | 0.43 | 0.00 - 0.80 | REFERENCE | | | Monocytes | | K/uL | LAB | | | | | | [facility] | | | | | | LABORATORY | | + + + + + + | Eosinophils | 0.03 | 0.00 - 0.50 | REFERENCE | | | , Absolute | | K/uL | LAB | | | | | | [facility] | | | | | | LABORATORY | | + + + + + + | Basophils, | 0.05Comment: Testing | 0.00 - 0.10 | REFERENCE | | | Absolute | performed at [facility] [address] | K/uL | LAB | | | | [place] | | [facility] | | | | [address];[place] [address] | | LABORATORY | | + + + + + + + + | Specimen | + + | Blood | + + + + + + + | Performing | Address | City/State/Zipcode | Phone Number | | Organization | | | | + + + + + | REFERENCE LAB | [address] [place] [address] | [place], [place] | [phone] | | [facility] | Bl[address] | [address] | | | LABORATORY | | | | + + + + + | REFERENCE LAB | [address] [place] [address] | [place], [place] | | | [facility] | Blvd[address] | [address] | | | LABORATORY | | | | + + + + + documented in this encounter Visit Diagnoses + + | Diagnosis | + + | Rheumatoid arthritis of multiple sites with negative rheumatoid factor (HCC) - Primary | + + | High risk medication use Encounter for long-term (current) use of other medications | + + documented in this encounter"
--- OUTSIDE RECORDS SUMMARY | ~2020-01-20 | XMS | Encounter Summary ---
Demographics + + + | Address | [address] | | | [place] [address] | + + + | Home Phone | | + + + | Preferred Language | Unknown | + + + | Marital Status | Single | + + + | Spiritism Affiliation | Unknown | + + + | Race | Unknown | + + + | Ethnic Group | Unknown | + + + Author + + + | Author | [facility] | | | and [place] | + + + | Organization | [facility] | | | and [place] [...] Team Providers + +------+ + | Care Lead Care Manager Name | Role | Phone | + +------+ + | Sincere Haddad | PCP | | + +------+ + Encounter Details +--------+ + + + + | Date | Type | Department | Care Team | Description | +--------+ + + + + | 10/16/ | Orders Only | [facility] | Izzy Alvarez | Rheumatoid arthritis | | 2019 | | [address] | [place], [place] | of multiple sites | | | | [place] | | with negative | | | | [address] | | rheumatoid factor | | | | [phone] | | (HCC); High risk | | | | | | medication use | +--------+ + + + + Social [...] | + +--------+ + + + | RHEUMATOID FACTOR, | Routin | 10/17/2019 | Rheumatoid | Results for this | | IGA, IGG AND IGM | e | 2:55 PM | arthritis of | procedure are in the | | | | PDT | multiple sites with | results section. | | | | | negative rheumatoid | | | | | | factor (HCC) High | | | | | | risk medication use | | + +--------+ + + + | CCP ANTIBODIES, IGG | Routin | 10/17/2019 | Rheumatoid | Results for this | | IGA | e | 2:55 PM | arthritis of | procedure are in the | | | | PDT | multiple sites with | results section. | | | | | negative rheumatoid | | | | | | factor (HCC) High | | | | | | risk medication use | | + +--------+ + + + | SEEMA, IFA | Routin | 10/17/2019 | Rheumatoid | Results for this | | | e | 2:55 PM | arthritis of | procedure are in the | | | | PDT | multiple sites with | results section. | | | | | negative rheumatoid | | | | | | factor (HCC) High | | | | | | risk medication use | | + +--------+ + + + | SEDIMENTATION RATE | Routin | 10/17/2019 | Rheumatoid | Results for this | | | e | 2:55 PM | arthritis of | procedure are in the | | | | PDT | multiple sites with | results section. | | | | | negative rheumatoid | | | | | | factor (HCC) High | | | | | | risk medication use | | + +--------+ + + + | SS-B LA AB, IGG, | Routin | 10/17/2019 | Rheumatoid | Results for this | | SERUM | e | 2:55 PM | arthritis of | procedure are in the | | | | PDT | multiple sites with | results section. | | | | | negative rheumatoid | | | | | | factor (HCC) High | | | | | | risk medication use | | + +--------+ + + + | SS-A RO AB, IGG, | Routin | 10/17/2019 | Rheumatoid | Results for this | | SERUM | e | 2:55 PM | arthritis of | procedure are in the | | | | PDT | multiple sites with | results section. | | | | | negative rheumatoid | | | | | | factor (HCC) High | | | | | | risk medication use | | + +--------+ + + + | CBC WITH | Routin | 10/17/2019 | Rheumatoid | Results for this | | DIFFERENTIAL | e | 2:55 PM | arthritis of | procedure are in the | | | | PDT | multiple sites with | results section. | | | | | negative rheumatoid | | | | | | factor (HCC) High | | | | | | risk medication use | | + +--------+ + + + | C-REACTIVE PROTEIN | Routin | 10/17/2019 | Rheumatoid | Results for this | | | e | 2:55 PM | arthritis of | procedure are in the | | | | PDT | multiple sites with | results section. | | | | | negative rheumatoid | | | | | | factor (HCC) High | | | | | | risk medication use | | + +--------+ + + + | COMPREHENSIVE | Routin | 10/17/2019 | Rheumatoid | Results for this | | METABOLIC PANEL | e | 2:55 PM | arthritis of | procedure are in the | | | | PDT | multiple sites with | results section. | | | | | negative rheumatoid | | | | | | factor (HCC) High | | | | | | risk medication use | | + +--------+ + + + documented in this encounter Results CCP Antibodies, IgG IgA [...] | | | | | | [facility], [address] [place] [address] | | | | | | [place] | | | | | | [address] | | | | + + + + + + + + | Specimen | + + | Blood | + + + + + + + | Performing | Address | City/State/Zipcode | Phone Number | | Organization | | | | + + + + + | REFERENCE LAB | [address] [place] [address] | [place], [place] | [phone] | | [facility] | [address] | [address] | | | LABORATORY | | | | + + + + + | REFERENCE LAB | [address] [place] [address] | [place], [place] | | | [facility] | Bl[address] | [address] | | | LABORATORY | | | [...] by | | | | | | [facility] | | | | | | [facility]Borderline[employer] | | | | | | RF results warrant | | | | | | redraw and retestingto | | | | | | confirm.Testing | | | | | | performed at [facility] | | | | | | [employer], [address] | | | | | | [facility] | | | | | | [facility],[place], [place] | | | | | | [phone] | | | | + + + + + + + + | Specimen | + + | Blood | + + + + + + + | Performing | Address | City/State/Zipcode | Phone Number | | Organization | | | | + + + + + | REFERENCE LAB | [address] [facility] | [place] | [phone] | | [facility] | [address] | [address] | | | LABORATORY | | | | + + + + + | REFERENCE LAB | [address] [facility] | [place], [place] | | | [facility] | Bl[address] | [address] | | | LABORATORY | | | [...] | | | Autoantibod | performed at [facility], [address] | | LAB | | | y | [facility] | | [facility] | | | | [place] [address] | | LABORATORY | | + + + + + + + + | Specimen | + + | Blood | + + + + + + + | Performing | Address | City/State/Zipcode | Phone Number | | Organization | | | | + + + + + | REFERENCE LAB | [address] [place] [address] | [place], [place] | [phone] | | [facility] | [address] | [address] | | | LABORATORY | | | | + + + + + | REFERENCE LAB | [address] [place] [address] | [place], [place] | | | [facility] | [address] | [address] | | | LABORATORY | | | [...] | | | Autoantibod | performed at [facility], [address] | | LAB | | | y | [facility] | | [facility] | | | | [place] [address] | | LABORATORY | | + + + + + + + + | Specimen | + + | Blood | + + + + + + + | Performing | Address | City/State/Zipcode | Phone Number | | Organization | | | | + + + + + | REFERENCE LAB | [address] | [place] | [phone] | | [facility] | [address] | [address] | | | LABORATORY | | | | + + + + + | REFERENCE LAB | [address] | [place] | | | [facility] | [address] | [address] | | | LABORATORY | | | | + + + + + BLAS STEPHENSON (10/17/2019 2:55 PM PDT) + + + + + + | Component | Value | Ref Range | Performed | Pathologist | | | | | At | Signature | + + + + + + | SEEMA | NegativeComment: | | REFERENCE | | [...] | | | | | performed at [facility], [address] | | | | | | [facility] | | | | | | [place] [address] | | | | + + + + + + + + | Specimen | + + | Blood | + + + + + + + | Performing | Address | City/State/Zipcode | Phone Number | | Organization | | | | + + + + + | REFERENCE LAB | [address] [place] [address] | [place] | [phone] | | [facility] | [address] | [address] | | | LABORATORY | | | | + + + + + | REFERENCE LAB | [address] [place] [address] | [place] | | | [facility] | [address] | [address] | | | LABORATORY | | | [...] REFERENCE | | | | performed at [facility];[address] | | LAB | | | | [place] | | [facility] | | | | [address];[place] [address] | | LABORATORY | | + + + + + + + + | Specimen | + + | Blood | + + + + + + + | Performing | Address | City/State/Zipcode | Phone Number | | Organization | | | | + + + + + | REFERENCE LAB | Clayton Torres | [place] | [phone] | | [facility] | [address] | [address] | | | LABORATORY | | | | + + + + + | REFERENCE LAB | Clayton [address] | [place] | | | [facility] | [address] | [address] | | | LABORATORY | | | [...] | | | | | performed at [facility];[address] | | | | | | [facility] | | | | | | Blvd;[place] [address] | | | | | | | | | | + + + + + + + + | Specimen | + + | Blood | + + + + + + + | Performing | Address | City/State/Zipcode | Phone Number | | Organization | | | | + + + + + | REFERENCE LAB | [address] [place] [address] | [place], [place] | [phone] | | [facility] | [address] | [address] | | | LABORATORY | | | | + + + + + | REFERENCE LAB | [address] [place] [address] | [place], [place] | | | [facility] | [address] | [address] | | | LABORATORY | | | [...] REFERENCE | | | | performed at [facility];[address] | | LAB | | | | [facility] | | [facility] | | | | [place]vd;[place] [address] | | LABORATORY | | + + + + + + + + | Specimen | + + | Blood | + + + + + + + | Performing | Address | City/State/Zipcode | Phone Number | | Organization | | | | + + + + + | REFERENCE LAB | [address] [place] [address] | [place] | [phone] | | [facility] | [address] | [address] | | | LABORATORY | | | | + + + + + | REFERENCE LAB | [address] [place] [address] | [place], [place] | | | [facility] | [address] | [address] | | | LABORATORY | | | [...] | | | Absolute | performed at [facility];[address] | K/uL | LAB | | | | [facility] | | [facility] | | | | [address];[place] [address] | | LABORATORY | | + + + + + + + + | Specimen | + + | Blood | + + + + + + + | Performing | Address | City/State/Zipcode | Phone Number | | Organization | | | | + + + + + | REFERENCE LAB | [address] [place] [address] | [place] | [phone] | | [facility] | [address] | [address] | | | LABORATORY | | | | + + + + + | REFERENCE LAB | [address] [place] [address] | [place], [place] | | | [facility] | [address] | [address] | | | LABORATORY | | | [...]
--- OUTSIDE RECORDS SUMMARY | ~2020-01-20 | XMS | Encounter Summary ---
Demographics + + + | Address | [address] | | | [place] [address] | + + + | Home Phone | | + + + | Preferred Language | Unknown | + + + | Marital Status | Single | + + + | Latter-Day Affiliation | Unknown | + + + | Race | Unknown | + + + | Ethnic Group | Unknown | + + + Author + + + | Author | [facility] | | | and [place] | + + + | Organization | [facility] | | | and [place] [...] Team Providers + +------+ + | Care Self Propelled Hot Mix Roller Operator Name | Role | Phone | + +------+ + | Sincere Haddad | PCP | | + +------+ + Reason for Visit +--------+--------+ + | Reason | Onset | Comments | | | Date | | +--------+--------+ + | Other | 01/14/ | Prereg | | | 2020 | | +--------+--------+ + Encounter Details +--------+ + + + + | Date | Type | Department | Care Team | Description | +--------+ + + + + | 01/14/ | Telephone | [facility] | Juan Carlos Betts, | Other (Prereg) | | 2019 | | RHEUMATOLOGY [address] | PA-C [address] | | | | [address] | [facility] | | | | | [place], [place] | [place] [address] | | | | | [address] | [phone] | | | | | [phone] | | | +--------+ + + + [...] this encounter Miscellaneous Notes Telephone Encounter - Miquel Goldbergkarlos Lancaster - 01/16/2020 12:05 PM PDT1. For your safety and to he lp prevent further spread of the COVID-19, your provider would like to offer you a telephone /virtual visit. Would you like to change your office visit to a telephone/virtual visit? NO 2. Have you been exposed to anyone diagnosed with or is currently being tested for COVID-19 ? a. If yes, transfer to triage but ask #3 also b. If no, see below NO 3. Do you currently have a cough, SOB, a fever, sore throat or loss of taste or smell? a. If yes, transfer to triage b. If no, see below NO Remind patients of no visitor policy if they are coming to clinic Remind patients to wear a mask when coming into the clinic Set up mychart and offer e-checkin option When you change the apt to a telephonic/virtual visit please: -Confirm insurance -if telephone, Confirm what phone number they want called, check to making sure they get go od body sander in their area -Gather any questions ahead of time -They need to be in a quiet area, away from distractions -Tell them what time they should be expecting the call (just their scheduled apt time) -if virtual, send [employer] message -computer needs to have webcam, microphone and speakers -smart phone should have webcam, microphone and speakers documented in this encoun ter Plan of Treatment Not on filedocumented as of this encounter Visit Diagnoses Not on filedocumented in this encounter"
--- OUTSIDE RECORDS SUMMARY | ~2020-01-20 | XMS | Encounter Summary ---
Demographics + + + | Address | [address] | | | [place] [address] | + + + | Home Phone | | + + + | Preferred Language | Unknown | + + + | Marital Status | Single | + + + | Sabianism Affiliation | Unknown | + + + | Race | Unknown | + + + | Ethnic Group | Unknown | + + + Author + + + | Author | [facility] | | | and [place]ana | + + + | Organization | [facility] | | | and [...] Team Providers + +------+ + | Care Information Systems Audit Manager Name | Role | Phone | + +------+ + | No, Unknownpcp | PCP | | + +------+ + Reason for Referral Evaluate & Treat (Routine) +--------+ + + + + + | Status | Reason | Specialty | Diagnoses / | Referred By | Referred To | | | | | Procedures | Contact | Contact | +--------+ + + + + + | Closed | Specialty | Family | Diagnoses | [place], | [facility] | | | Services | Medicine | | Babatunde Mclean MD | Family | | | Required | | Lymphadenopa | [address] | Medicine | | | | | thy, | [address] | [place] | | | | | cervical | [place], | [address] | | | | | | [place] [address] | [address] [place] | | | | | | Phone: | [place] | | | | | | [phone] | [phone] | | | | | | Fax: | Phone: | | | | | | [phone] | [phone] | | | | | | | Fax: | | | | | | | [phone] | +--------+ + + + + + Reason for Visit + + + | Reason | Comments | + + + | Urticaria | | + + + | Tachycardia | | + + + | Hypertension | | + + + Encounter Details +--------+ + + + + | Date | Type | Department | Care Team | Description | +--------+ + + + + | 10/03/ | Emergency | [facility] | Babatunde Bradshaw, | Tattoo reaction | | 2019 | | [facility] | MD [address] | (Primary Dx); | | | | CENTER [address] | [place], [place] | Allergic reaction, | | | | [place], [place] | [address] | initial encounter; | | | | [address] | | Lymphadenopathy, | | | | [phone] | | cervical | +--------+ + + + + Social History + +-------+ +--------+------+ | Tobacco Use | Types | Packs/Day | Years | Date | | | | | Used | | + +-------+ +--------+------+ | Never Smoker | | | | | + +-------+ +--------+------+ + +---+---+---+ | Smokeless Tobacco: | | | | | Never Used | | | | + +---+---+---+ + + + | Sex Assigned at | Date Recorded | | | | + + + | Not on file | | + + + documented as of this encounter Last Filed Vital Signs + + + + + | Vital Sign | Reading | Time Taken | Comments | + + + + + | Blood Pressure | 142/68 | 10/03/2018 9:11 PM | | | | | PDT | | + + + + + | Pulse | 91 | 10/03/2018 9:11 PM | | | | | PDT | | + + + + + | Temperature | 36.1 C (97 F) | 10/03/2018 7:05 PM | | | | | PDT | | + + + + + | Respiratory Rate | 14 | 10/03/2018 9:11 PM | | | | | PDT | | + + + + + | Oxygen Saturation | 98% | 10/03/2018 9:11 PM | | | | | PDT | | + + + + + | Inhaled Oxygen | - | - | | | Concentration | | | | + + + + + | Weight | 69.4 kg (153 lb) | 10/03/2018 7:05 PM | | | | | PDT | | + + + + + | Height | 152.4 cm (5') | 10/03/2018 7:05 PM | | | | | PDT | | + + + + + | Body Mass Index | 29.88 | 10/03/2018 7:05 PM | | | | | PDT [...] + documented as of this encounter Discharge Instructions AttachmentsThe following attachments cannot be sent through Care Everywhere.Lymphadenopathy (Citizen [place])Allergic Reactions, General (Citizen [place])documented in this encounter Medications at Time of [...] + + + +---------+ + + | diphenhydrAMINE | Take 1 tablet by | 60 | 0 | 10/04/19 | | | (BENADRYL) 25 mg | mouth every 6 hours | tablet | | 19 | 0 | | tablet | as needed for | | | | | | | Itching. | | | | | + + + +---------+ + + | famotidine | Take 1 tablet by | 60 | 0 | 10/04/19 | | | (PEPCID) 20 mg | mouth 2 times daily. | tablet | | 19 | 0 | | tablet | | | | [...] +---------+ + + | predniSONE | Take 5 tablets by | 25 | 0 | 10/04/19 | | | (DELTASONE) 10 mg | mouth Daily for 5 | tablet | | 19 | 9 | | tablet | days. | | | | | + + + +---------+ + + documented as of this encounter ED Notes Babatunde Bradshaw MD - 10/03/2018 8:37 PM PDTFormatting of this note might be different fr om the original. Chief Complaint: "I am having an allergic reaction to my tattoo" HPI: This patient presents to the Emergency Department with an allergic reaction and a rash and itching and swelling to the right forearm. This has been present for about one week an d is itching and worsens with movement and is associated with redness and swelling. Past Medical and Surgical History Past Medical History: Diagnosis Date Anemia Asthma Cardiac abnormality Hypertension History reviewed. No pertinent surgical history. Medications Previous Medications HYDROCODONE-ACETAMINOPHEN (NORCO) 5-325 MG PER TABLET Take 1-2 tablets by mouth every 4 hours as needed for Pain. 27-0.8 MG MULTIVITAMIN TABLET Take 1 tablet by mouth Daily. RANITIDINE (ZANTAC) 25 MG EFFERVESCENT TABLET Take 25 mg by mouth 2 times daily. Allergies Allergies Allergen Reactions Ciprofloxacin Hcl Shortness Of Breath Sulfamethoxazole W/Trimethoprim (Co-Trimoxazole) Shortness Of Breath Causes respiratory symptoms and hives Family and Social History Family History Problem Relation Age of Onset Cancer Mother Hypertension Mother Stroke Maternal Aunt Hypertension Maternal Aunt Ovarian cancer Maternal Aunt Cancer Maternal Uncle Diabetes Maternal Grandmother Diabetes Paternal Grandmother Social History Social History Marital status: Single Spouse name: N/A Number of children: N/A Years of education: N/A Social History Main Topics Smoking status: Never Smoker Smokeless tobacco: Never Used Alcohol use None Drug use: Unknown Sexual activity: Not Asked Other Topics Concern None Social History Narrative None Review of Systems Review of Systems Constitutional: Negative for chills and fever. Gastrointestinal: Negative for abdominal pain, nausea and vomiting. Skin: Positive for itching and rash. As in history of present illness. A 10 system review was otherwise negative. Physical Examination VITAL SIGNS: (first vital signs):Temp: 36.1 C (97 F) Pulse: 112 Resp: 18 SpO2: 99 % BP: (!) 173/110 Body mass index is 29.88 kg/m. Constitutional: female patient, pleasant, alert and appropriate, conversant with nurse and staff. HEENT: Atraumatic, patient follows me around the room with their eyes, PERRL, Oropharynx s hows no redness, moist mucus membranes. Mildly enlarged left anterior cervical lymph node Neck: Supple with full range of motion. No JVD, lymphadenopathy, or meningismus. Extremities: Nontender. no edema, present distal pulses. Skin: Warm, Dry, No obvious rashes. Capillary refill is brisk <3 seconds and shows good p erfusion on areas of visible skin. There is however severe edema and redness around the ta ttoo. No associated abscess Neurologic: Alert & oriented. Cranial nerves II-XII intact. No focal deficits. Gait is n ormal. Speech is normal. Psychiatric: Normal mood, affect and judgement. No evidence of suicidal or homicidal idea tion at this time. Medical Decision Making Pertinent Labs & Imaging studies were reviewed along with EMS notes and [facility] record s if applicable. Medication and allergy lists reviewed in [facility]. Nursing notes and old poly rds were reviewed if available within [facility]. ER course: 20:37 - Patient care initiated. After introducing myself to the patient, I performed a car eful history and physical examination. Patient with an allergic reaction. We will treat with oral steroids Last Set of Vital Signs: Temp: 36.1 C (97 F) Pulse: 112 Resp: 18 SpO2: 99 % BP: (!) 173 /110 Impression 1. Tattoo reaction 2. Allergic reaction, initial encounter 3. Lymphadenopathy, cervical Disposition: Discharge home Condition: Stable Follow-up Information Schedule an appointment as soon as possible for a visit with Shant Lewis MD. Specialties: Family Medicine, Sports Medicine Contact information: [address] [place] [address] New Prescriptions DIPHENHYDRAMINE (BENADRYL) 25 MG TABLET Take 1 tablet by mouth every 6 hours as needed for Itching. FAMOTIDINE (PEPCID) 20 MG TABLET Take 1 tablet by mouth 2 times daily. PREDNISONE (DELTASONE) 10 MG TABLET Take 5 tablets by mouth Daily for 5 days. Discontinued Medications PREDNISONE (DELTASONE) 10 MG TABLET Take 10 mg by mouth Daily. Discharge References/Attachments Lymphadenopathy (Citizen [place]) Allergic Reactions, General (Citizen [place]) A voice recognition software has been used to create this chart. Occasional wrong-word or sound-alike substitutions may have occurred due to the inherent limitations of voice r ecognition software. Please read the chart carefully and recognize, using context, where the se substitutions have occurred. Babatunde Bradshaw MD 10/03/182057 askaran Khan R N - 10/03/2018 7:01 PM PDTPt makes CO of hives on her R arm. Hives are primarily on a tatto o she received 3 weeks ago. Pt seen at [facility] yesterday and was DX'd with cellulitis a nd given keflex. Pt does not think it is cellulitis. Pt also makes CO of HTN and tachycardia . 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 Pt denies respiratory issues but does have a lump in her throat with some difficulty swallowing. documented in this encounter Plan of Treatment + +------+--------+ + + | Name | Type | Priori | Associated Diagnoses | Date/Time | | | | ty | | | + +------+--------+ + + | ED INFORMATION | [place] | Routin | | 10/03/2018 6:59 PM | | EXCHANGE | | e | | PDT | + +------+--------+ + + + + +--------+ + + | Name | Type | Priori | Associated Diagnoses | Order Schedule | | | | ty | | | + + +--------+ + + | * [facility] [place] [facility] | Outpatient | Routin | Lymphadenopathy, | Ordered: 10/03/2018 | | Medicine [place] - | Referral | e | cervical | | | AMB Referral | | | | | + + +--------+ + + documented as of this encounter Procedures + +--------+ + + + | Procedure Name | Priori | Date/Time | Associated Diagnosis | Comments | | | ty | | | | + +--------+ + + + | ED INFORMATION | Routin | 10/03/2018 | | | | EXCHANGE | e | 6:59 PM | | | | | | PDT | | | + +--------+ + + + +---+--------+ | | | | | Proced | | | ure | | | Note - | | | Gamaliel, | | | Lab In | | | | | | Hlseve | | | n - | | | 04/03/ | | | 2019 | | | 7:00 | | | PM PDT | | | | | | Format | | | ting | | | of | | | this | | | note | | | might | | | be | | | differ | | | ent | | | from | | | the | | | origin | | | al.COL | | | LECTIV | | | E?NOTI | | | FICATI | | | ON?04/ | | | 03/201 | | | 9 | | | 18:56? | | | WELLMA | | | N, | | | KLARIS | | | SA | | | E?MRN: | | | | | | [id number] | | | [id number] | | | riteri | | | a Met | | | Care | | | Guidel | | | inesSe | | | curity | | | and | | | Safety | | | No | | | recent | | | | | | Securi | | | ty | | | Events | | | | | | curren | | | tly on | | | | | | fileED | | | Care | | | Guidel | | | inesTh | | | ere | | | are | | | curren | | | tly no | | | ED | | | Care | | | Guidel | | | ashley | | | for | | | this | | | patien | | | t. | | | Please | | | check | | | your | | | facili | | | ty's | | | medica | | | l | | | record | | | s | | | system | | | .Care | | | Histor | | | yMedic | | | al/Shannon | | | [email or web address] | | | /09/18 | | | 12:00 | | | AM | | | [facility] | | | alEOIP | | | A CASE | | | | | | MANAGE | | | MENT | | | REFERR | | | AL | | | MADE- | | | PATIEN | | | T HAS | | | EOCCO | | | AND NO | | | PCP. | | | Prescr | | | iption | | | Drug | | | Report | | | (12 | | | Mo.)PD | | | MP | | | query | | | found | | | no | | | report | | | .E.D. | | | Visit | | | Count | | | (12 | | | mo.)Fa | | | cility | | | | | | Visits | | | Low | | | Acuity | | | | | | Provid | | | ence | | | St. | | | [facility] | [facility] | | | l | | | Center | | | 1 0 | | | [facility] | | | [facility] | | | al 1 0 | | | Total | | | 2 0 | | | Note: | | | Visits | | | | | | indica | | | te | | | total | | | known | | | visits | | | . | | | Medica | | | id Low | | | | | | Acuity | | | Dx | | | are | | | the | | | number | | | of | | | primar | | | y | | | diagno | | | ses on | | | the | | | Medica | | | id's | | | Low | | | Acuity | | | dx | | | list. | | | | | | Recent | | | | | | Emerge | | | ncy | | | Depart | | | ment | | | Visit | | | [facility] | | | yDate | | | Facili | | | ty | | | City | | | State | | | Type | | | Diagno | | | ses or | | | Chief | | | | | | Compla | | | int | | | Apr 3, | | | 2019 | | | Provid | | | ence | | | [facility] | | [facility] | [place] | | | [place] | | | Emerge | | | ncy | | | high | | | BP, | | | hives | | | Apr | | | 2, | | | 2019 | | | [facility] | [facility] | | | [place] | | | [place] | | | Emerge | | | ncy | | | Chief | | | Compla | | | int: | | | CHEST | | | PAIN/P | | | OSS | | | RIGHT | | | ARM | | | INFECT | | | ION/RA | | | SH | | | Recent | | | | | | Inpati | | | ent | | | Visit | | | [facility] | | | yNo | | | record | | | ed | | | inpati | | | ent | | | visits | | | . Care | | | | | | Provid | | | ersThe | | | re are | | | no | | | care | | | provid | | | ers on | | | | | | record | | | at | | | this | | | time. | | | Colle[facility] | | | tive | | | Portal | | | This | | | patien | | | t has | | | regist | | | ered | | | at the | | | | | | Provid | | | ence | | | St[facility] | | | [facility] | Medica | | | l | | | Center | | | | | | Emerge | | | ncy | | | Depart | | | ment | | | For | | | more | | | inform | | | ation | | | visit: | | | | | | https: | | | //secu | | | [email or web address] | | | ecarep | | | [email or web address] | | | [email or web address] | | | ent/e5 | | | [id number] | | | [phone] | | | [phone] | | | [id number] | | | [email or web address] | | | [phone] | | | andnbs | | | p | | | PLEASE | | | NOTE: | | | 1. | | | Any | | | care | | | recomm | | | endati | | | ons | | | and | | | other | | | clinic | | | al | | | inform | | | ation | | | are | | | provid | | | ed as | | | guidel | | | ashley | | | or for | | | | | | histor | | | ical | | | purpos | | | es | | | only, | | | and | | | provid | | | ers | | | should | | | | | | exerci | | | se | | | their | | | own | | | clinic | | | al | | | judgme | | | nt | | | when | | | provid | | | ing | | | care. | | | 2. | | | You | | | may | | | only | | | use | | | this | | | inform | | | ation | | | for | | | purpos | | | es of | | | treatm | | | ent, | | | paymen | | | t or | | | health | | | care | | | operat | | | ions | | | activi | | | ties, | | | and | | | subjec | | | t to | | | the | | | limita | | | tions | | | of | | | applic | | | able | | | Collec | | | tive | | | Polici | | | es. | | | 3. | | | You | | | should | | | | | | consul | | | t | | | direct | | | ly | | | with | | | the | | | organi | | | zation | | | that | | | provid | | | ed a | | | care | | | guidel | | | ine or | | | other | | | | | | clinic | | | al | | | histor | | | y with | | | any | | | questi | | | ons | | | about | | | additi | | | onal | | | inform | | | ation | | | or | | | accura | | | cy or | | | comple | | | teness | | | of | | | inform | | | ation | | | provid | | | ed.? | | | 2019 | | | Collec | | | tive | | | Medica | | | l | | | [employer] | | | logies | | | , Inc[employer] | | | - | | | [email or web address] | | | llleodani | | | mikei | | | [email or web address] | | | m | +---+--------+ documented in this encounter Visit Diagnoses + + | Diagnosis | + + | Tattoo reaction - Primary Foreign body granuloma of skin and subcutaneous tissue | + + | Allergic reaction, initial encounter | + + | Lymphadenopathy, cervical | + + documented in this encounter
--- OUTSIDE RECORDS SUMMARY | ~2020-01-20 | XMS | Encounter Summary ---
Demographics + + + | Address | [address] | | | [place] [address] | + + + | Home Phone | | + + + | Preferred Language | Unknown | + + + | Marital Status | Single | + + + | Buddhism Affiliation | Unknown | + + + | Race | Unknown | + + + | Ethnic Group | Unknown | + + + Author + + + | Author | [facility] | | | and Litana | + + + | Organization | [facility] | | | and Litana [...] Team Providers + +------+ + | Care Founder Name | Role | Phone | + +------+ + | Grupo Mario MD | PCP | | + +------+ + Reason for Visit Auth/Cert +--------+--------+ + [...] + + + + | 03/18/ | Anesthesia | [facility] | Abner Pagan | | | 2013 | Event | [facility] | Raffaele ARAIZA MD [address] | | | | | DELIVERY IP [address] | [facility] | | | | | [place], | [place] [address] | | | | | [place] [address] | [phone] | | | | | [phone] | | | +--------+ + + + + Anesthesia Record + + + + + | Procedure Name | Responsible | Anesthesia Start | Anesthesia Stop Time | | | Anesthesiologist | Time | | + + + + + | epidural Princess Pagan | 03/18/14 1610 | 03/18/14 2109 | | | II, MD | | | + + + + + +----+---+ + + | Da | T | Event | Comment | | te | i | | | | | m | | | | | e | | | +----+---+ + + | 09 | 1 | | | | /1 | 6 | | | | 6/ | 1 | | | | 20 | 0 | | | | 14 | | | | +----+---+ + + | | 1 | An Start | Reassessment prior to anesthesia induction/procedure. | | | 6 | | | | | 1 | | | | | 0 | | | +----+---+ + + | | 1 | An Start | | | | 6 | Data | | | | 1 | | | | | 0 | | | +----+---+ + + | | 1 | Epidural | | | | 6 | Bolus | | | | 2 | | | | | 2 | | | +----+---+ + + | | 1 | Epi/spinal | | | | 6 | Stop | | | | 2 | | | | | 5 | | | +----+---+ + + | | 1 | Epidural | | | | 6 | Infusion | | | | 2 | Started | | | | 8 | | | +----+---+ + + | | 1 | Out of OR | | | | 6 | Device Stop | | | | 3 | | | | | 2 | | | +----+---+ + + | | 2 | Baby Deliv | | | | 1 | | | | | 0 | | | | | 9 | | | +----+---+ + + | | 2 | An Stop | Patient handed off to recovery nurse. | | | 0 | | | | | 9 | | | +----+---+ + + +------+ | Meds | +------+ + +-------+ | Name | Total | + +-------+ | lidocaine (PF) injection 1% | 3 mL | + +-------+ + + | No agents on file. | + + + + | No blood administrations on file. | + + +--------+ + + + | Type | Details | Placement | Removal | +--------+ + + + | [READ | 03/18/14; 1536; 03/19/14; 2200 | 03/18/14 1536 by | 03/19/142199 by | | ONLY] | | Jo Ann Montano RN | Emilia Aj RN | | | | | | | Periph | | | | | eral | | | | | IV - | | | | | Double | | | | | Lumen | | | | | | | | | +--------+ + + + | Epidur | 03/18/14; 162; 03/18/14; 2147 | 03/18/141621 by | 03/18/142147 by | | al/Spi | | Abner Pagan | Therese Bobby RN | | nal | | II, MD | | +--------+ + + + | Urethr | 03/18/14; 1729; indicated for | 03/18/141729 by | 03/18/142054 by | | al | acute urinary | Jo Ann Montano RN | Therese Bobby RN | | Cathet | retention/obstruction; indwelling | | | | er | double lumen catheter; 100% | | | | | silicone; 16; 1; 10; 10; other | | | | | (see comments) (Epidural); | | | | | drainage bag to dependent | | | | | drainage; tubing intact; short | | | | | term use; 03/18/14; 2054 | | | +--------+ + + + documented in this encounter Social History + +-------+ +--------+------+ | Tobacco [...] this encounter Last Filed Vital Signs + +---------+ + + | Vital Sign | Reading | Time Taken | Comments | + +---------+ + + | Blood Pressure | 136/73 | 03/18/2014 4:27 PM | | | | | PDT | | + +---------+ + + | Pulse | - | - | | + +---------+ + + | Temperature | - | - | | + +---------+ + + | Respiratory Rate | - | - | | + +---------+ + + | Oxygen Saturation | 100% | 03/18/2014 4:25 PM | | | | | PDT | | + +---------+ + + | Inhaled Oxygen | - | - | | | Concentration | | | | + +---------+ + + | Weight | - | - | | + +---------+ + + | Height | - | - | | + +---------+ + + | Body Mass Index | - | - | | + +---------+ + + documented in this encounter Functional [...] + + documented as of this encounter OR Notes Anesthesia Postprocedure Evaluation - Abner Pagan II, MD - 03/19/2014 8:36 AM PDTF ormatting of this note might be different from the original. ANESTHESIA POSTANESTHESIA EVALUATION Socorro Juarez 23 y.o. female 1990 [id number] Procedure: * No procedures listed * Filed Vitals: 03/18/14 2315 03/19/14 0400 03/19/14 0800 BP: 115/62 115/59 Pulse: 86 87 75 Temp: 36.5 C (97.7 F) 36 C (96.8 F) Resp: 16 18 SpO2: 100% Cooperates? Yes Mental Status Performs simple tasks. Respiratory Satisfactory - Airway patent (self maintained). Cardiovascular Satisfactory Blood pressure and heart rate acceptable Temperature Satisfactory Pain Satisfactory N/V Control Satisfactory Hydration Satisfactory No signs of dehydration Complications None apparent Electronically signed by Abner Pagan II, MD 03/19/2014 8:36 [facility] nesthesia Pro cedure Notes - Abner Pagan II, MD - 03/18/2014 5:08 PM PDTAssociated Order(s): ANES THESIA BLOCKProcedure Note Epidural Procedure: Epidural, L3-4, Approach: Midline Technique: Catheter Indication: Patient in Labor. Block requested by surgeon or patient. Pre-procedure Events: Patient Identified, Pre-op Evaluation Completed, Airway Assessed, Ris ks and Benefits Discussed, Procedure Consent Obtained and Timeout Performed. Patient Positioning: Prep: ChloraPrep used. Skin Local Anesthetic: Lidocaine 1% Needle: 17 G Tuohy (9 cm). Loss of resistance depth: 6 cm JAMES - Saline Catheter depth at skin: 11 cm Ease: Easy Attempts: 1 Note: Negative Blood Aspirated, CSF Return, Paresthesia and Test Dose. Performed by: Performing Provider: Abner Pagan. nesthesia Pre procedure Evaluation - Abner Pagan II, MD - 03/18/2014 4:06 PM PDTFormatting of thi s note might be different from the original. ANESTHESIA PREANESTHESIA EVALUATION Socorro Juarez 23 y.o. female 1990 [id number] Scheduled procedure Medical history, anesthesia, medications, allergy histories reviewed. ROS / Med History CV (+) hypertension. Pulm (+) asthma. Renal One kidney larger than the other. Anesthesia Physical Exam Anesthesia Plan ASA 2 Type: Epidural. Induction: Local anesthesia. Potential problems: None anticipated. Monitors: Standard ASA monitors. Consent statement: . Consenting person understands and agrees to proceed. Electronically Signed by: Abner Pagan II, MD ESig date/time: 03/18/2014 16:10 documented in this encounter Plan of Treatment Not on filedocumented as of this encounter Procedures + +--------+ + + + | Procedure Name | Priori | Date/Time | Associated Diagnosis | Comments | | | ty | | | | + +--------+ + + + | ANESTHESIA BLOCK | Routin | 03/18/2014 | | Results for this | | | e | 5:10 PM | | procedure are in the | | | | PDT | | results section. | + +--------+ + + + documented in this encounter Results ANESTHESIA BLOCK (03/18/2014 5:10 PM PDT) + + + | Narrative | Performed At | + + + | Abner Pagan II, MD 03/18/2014 17:10 Procedure Note | | | Epidural Procedure: Epidural, L3-4, Approach: Midline | | | Technique: Catheter Indication: Patient in Labor. Block requested | | | by surgeon or patient. Pre-procedure Events: Patient | | | Identified, Pre-op Evaluation Completed, Airway Assessed, Risks and | | | Benefits Discussed, Procedure Consent Obtained and Timeout | | | Performed. Patient Positioning: Prep: ChloraPrep used. Skin Local | | | Anesthetic: Lidocaine 1% Needle: 17 G Tuohy (9 cm). Loss of | | | resistance depth: 6 cm JAMES - Saline Catheter depth at skin: 11 cm | | | Ease: Easy Attempts: 1 Note: Negative Blood Aspirated, CSF | | | Return, Paresthesia and Test Dose. Performed by: | | | Performing Provider: Abner Pagan. | | + + + + + | Procedure Note | + + | Abner Pagan II, MD - 03/18/2014 5:08 PM PDT Procedure NoteEpiduralProcedure: | | Epidural, L3-4, Approach: Midline Technique: Catheter Indication: Patient in Labor. | | Block requested by surgeon or patient. Pre-procedure Events: Patient Identified, | | Pre-op Evaluation Completed, Airway Assessed, Risks and Benefits Discussed, Procedure | | Consent Obtained and Timeout Performed.Patient Positioning: Prep: ChloraPrep used. Skin | | Local Anesthetic: Lidocaine 1%Needle: 17 G Tuohy (9 cm). Loss of resistance depth: 6 | | cm JAMES - SalineCatheter depth at skin: 11 cmEase: EasyAttempts: 1 Note: Negative Blood | | Aspirated, CSF Return, Paresthesia and Test Dose. Performed by: Performing Provider: | | Abner Pagan. | |Skin Local Anesthetic: Lidocaine 1% | |Needle: 17 G Tuohy (9 cm). | |Loss of resistance depth: 6 cm JAMES - Saline | |Catheter depth at skin: 11 cm | | | |Ease: Easy | |Attempts: 1 | | | |Note: Negative Blood Aspirated, CSF Return, Paresthesia and Test Dose. | | | | | |Performed by: | |Performing Provider: Abner Pagan. | + + documented in this encounter Visit Diagnoses Not on filedocumented in this encounter Administered Medications + +--------+ +-------+------+------+ | Medication Order | MAR | Action | Dose | Rate | Site | | | Action | Date | | | | + +--------+ +-------+------+------+ | lidocaine (PF) 1% injection | Given | 03/18/20 | 3 mLs | | | | PRN, Starting 03/18/14 at | | 14 4:22 | | | | | 1622, Anesthesia Intra-op | | PM PDT | | | | + +--------+ +-------+------+------+ +---+---+ | | | +---+---+ documented in this encounter"
[~2020-01-20 15:43] MED LIST changes: +KEFLEX500 MG PO; +OMEPRAZOLE20 MG PO
--- NOTE | 2020-01-21 14:18 | PR ---
[facility] [address] [facility] [place], [place] [address] Signed Progress Notes IP Datetime Report Generated by SHIMA: 01/21/2020 14:18 PROGRESS NOTES: [id number] Impression: Normal progression of labor Procedures: Artificial ROM; Sterile Vag Exam Plan: Continue present management Informed Consent Obtain: Vaginal Delivery; Induction of Labor; Risks, Benefits and Alternatives Discussed VITAL SIGNS: [id number] Vital Signs: Reviewed; Within Normal Limits VS Notable Details: mild HTN EXAM: [id number] Dilatation: 3.0 Effacement: 50 Station: -2 Uterine Contractions: q 1 to 4 min MEMBRANES: [id number] Membrane Status: Intact ROM Note: AROM with mod amt clear fluid Comments: Progressing. Will continue. Fetus A: [id number] FHR Baseline: 140 Variability: Moderate 6-25bpm Accelerations: 15X15 Decelerations: None FHR Category: Category I Presentation: Vertex Comments on Fetus A: No evidence of metabolic acidosis Fetus B: [id number] Signing Physician: Felecia Rahman MD Copies: ~ *Electronically Signed* 01/21/20 1418 FELECIA RAHMAN MD PATIENT NAME: MARCO A DAVID PROGRESS NOTE DATE OF : 88 PHYSICIAN: FELECIA RAHMAN MD RPT #: [id number] REPORT IS CONFIDENTIAL AND NOT TO BE RELEASED WITHOUT AUTHORIZATION
--- NOTE | 2020-01-21 17:38 | PR ---
[facility] [address] [place], [place] [address] Signed Progress Notes IP Datetime Report Generated by SHIMA: 01/21/2020 17:38 PROGRESS NOTES: [id number] Impression: Slow Progression of Labor Procedures: Intrauterine Pressure Catheter; Sterile Vag Exam Plan: Augmentation Informed Consent Obtain: Vaginal Delivery; Induction of Labor; Risks, Benefits and Alternatives Discussed VITAL SIGNS: [id number] Vital Signs: Reviewed; Within Normal Limits VS Notable Details: mild HTN EXAM: [id number] Dilatation: 4.0 Effacement: 70 Station: -2 Uterine Contractions: q 2 to 3 min MEMBRANES: [id number] Membrane Status: Intact ROM Note: AROM with mod amt clear fluid Comments: Comfortable after epidural but minimal progress. Will place IUPC and augment as needed. Fetus A: [id number] FHR Baseline: 140 Variability: Moderate 6-25bpm Accelerations: 15X15 Decelerations: None FHR Category: Category I Presentation: Vertex Comments on Fetus A: No evidence of metabolic acidosis Fetus B: [id number] Signing Physician: Felecia Rahman MD Copies: ~ *Electronically Signed* 01/21/20 1738 FELECIA RAHMAN MD PATIENT NAME: MARCO A DAVID PROGRESS NOTE DATE OF : 88 PHYSICIAN: FELECIA RAHMAN MD RPT #: [id number] REPORT IS CONFIDENTIAL AND NOT TO BE RELEASED WITHOUT AUTHORIZATION
--- NOTE | 2020-01-21 19:48 | PR ---
[facility] [address] [facility] [place] [address] Signed Progress Notes IP Datetime Report Generated by SHIMA: 01/21/2020 19:48 PROGRESS NOTES: [id number] Impression: Normal progression of labor; Reassuring heart rate Procedures: Scalp Electrode; Sterile Vag Exam Plan: Continue present management Informed Consent Obtain: Vaginal Delivery; Induction of Labor; Risks, Benefits and Alternatives Discussed VITAL SIGNS: [id number] Vital Signs: Reviewed VS Notable Details: mild HTN EXAM: [id number] Dilatation: 6.0 Effacement: 90 Station: -2 Uterine Contractions: q 2 to 3 min MEMBRANES: [id number] Membrane Status: Intact ROM Note: AROM with mod amt clear fluid Comments: More comfortable after redose and progressing now. Will place FSE and continue close observation. Fetus A: [id number] FHR Baseline: 140 Variability: Moderate 6-25bpm Accelerations: None Decelerations: None FHR Category: Category I Presentation: Vertex Comments on Fetus A: reassuring with mod variability Fetus B: [id number] Signing Physician: Felecia Rahman MD Copies: ~ *Electronically Signed* 01/21/201947 FELECIA RAHMAN MD PATIENT NAME: MARCO A DAVID PROGRESS NOTE DATE OF : 88 PHYSICIAN: FELECIA RAHMAN MD RPT #: [id number] REPORT IS CONFIDENTIAL AND NOT TO BE RELEASED WITHOUT AUTHORIZATION
--- NOTE | 2020-01-21 20:27 | PR ---
[facility] [facility] [address] [facility] [place], [place] [address] Signed Progress Notes IP Datetime Report Generated by SHIMA: 01/21/2020 20:26 PROGRESS NOTES: [id number] Impression: Normal progression of labor Procedures: Sterile Vag Exam Plan: Continue present management Informed Consent Obtain: Vaginal Delivery; Induction of Labor; Risks, Benefits and Alternatives Discussed VITAL SIGNS: [id number] Vital Signs: Reviewed; Within Normal Limits VS Notable Details: mild HTN EXAM: [id number] Dilatation: 9.0 Effacement: 90 Station: -2 Uterine Contractions: q 2 to 4 min MEMBRANES: [id number] Membrane Status: Intact ROM Note: AROM with mod amt clear fluid Comments: Progressing. Will continue close observation and continue position changes. Fetus A: [id number] FHR Baseline: 145 Variability: Moderate 6-25bpm Accelerations: 15X15 Decelerations: Variable FHR Category: Category II Presentation: Vertex Comments on Fetus A: reassuring overall Fetus B: [id number] Signing Physician: Felecia Rahman MD Copies: ~ *Electronically Signed* 01/21/202025 FELECIA RAHMAN MD PATIENT NAME: MARCO A DAVID PROGRESS NOTE DATE OF : 88 PHYSICIAN: FELECIA RAHMAN MD RPT #: [id number] REPORT IS CONFIDENTIAL AND NOT TO BE RELEASED WITHOUT AUTHORIZATION
--- NOTE | 2020-01-22 12:13 | PR ---
[facility] [address] [facility] [place], [place] [address] Signed PP Progress Notes Datetime Report Generated by SHIMA: 01/22/2020 12:13 SUBJECTIVE: [id number] Pain: Within normal limits Vital Signs: [id number] Vital Signs: Reviewed; Within Normal Limits EXAM: [id number] Cardiovascular: Not Done Respiratory: Not Done Abdomen/Uterus: Abnormal Lochia: Normal Vulva/Perineum: Not Done Breasts: Not Done CVA Tenderness: Not Done Extremities: Normal Incision: Not Applicable Progress: Normal Exam Comments: Fundus firm, NT @ U-1. H/H 9.8/29.3, WBC 14.5, plat 172k IMPRESSION/PLAN/PROCEDURES: [id number] Impression: Normal progression Plan: Discharge Progress Notes: Doing well. She is ready for D/C. Signing Physician: Felecia Rahman MD Copies: ~ *Electronically Signed* 01/22/20 1213 FELECIA RAHMAN MD PATIENT NAME: MARCO A DAVID PROGRESS NOTE DATE OF : 88 PHYSICIAN: FELECIA RAHMAN MD RPT #: [id number] REPORT IS CONFIDENTIAL AND NOT TO BE RELEASED WITHOUT AUTHORIZATION
== END 2020-01-22 18:00 | disposition home or self-care (01) | DRG 807 ==
LOC: FBC 01-21 09:59
PROVIDERS: ADMIT Obstetrics & Gynecology
PROC: 10E0XZZ Delivery of Products of Conception, External Approach (ICD-10-PCS; principal; 2020-01-21)
PROC: 10907ZC Drainage of Amniotic Fluid, Therapeutic from Products of Conception, Via Natural or Artificial Opening (ICD-10-PCS; 2020-01-21)
PROC: 10H07YZ Insertion of Other Device into Products of Conception, Via Natural or Artificial Opening (ICD-10-PCS; 2020-01-21)
PROC: 3E0P7VZ Introduction of Hormone into Female Reproductive, Via Natural or Artificial Opening (ICD-10-PCS; 2020-01-21)
PROC: 00HU33Z Insertion of Infusion Device into Spinal Canal, Percutaneous Approach (ICD-10-PCS; 2020-01-21)
PROC: 3E0R3BZ Introduction of Anesthetic Agent into Spinal Canal, Percutaneous Approach (ICD-10-PCS; 2020-01-21)
DX: O14.04 Mild to moderate pre-eclampsia, complicating childbirth (principal); Z37.0 Single live birth; Z3A.37 37 weeks gestation of pregnancy; O76 Abnormality in fetal heart rate and rhythm complicating labor and delivery; O69.81X0 Labor and delivery complicated by cord around neck, without compression, not applicable or unspecified; O99.214 Obesity complicating childbirth; E66.9 Obesity, unspecified; O99.62 Diseases of the digestive system complicating childbirth; K21.9 Gastro-esophageal reflux disease without esophagitis; O99.89 Other specified diseases and conditions complicating pregnancy, childbirth and the puerperium; M05.9 Rheumatoid arthritis with rheumatoid factor, unspecified; O69.89X0 Labor and delivery complicated by other cord complications, not applicable or unspecified; Z79.899 Other long term (current) drug therapy; Z79.82 Long term (current) use of aspirin; Z88.1 Allergy status to other antibiotic agents
CPT/HCPCS: 01960; 36415; 82565; 82570; 84156; 84450; 84520; 84550; 85025; 85027; A9270; J2590; J2795; J3010; J7121

== ENCOUNTER 2024-06-28 12:23 | Emergency (ER) | payer OTHER ==
[~2024-06-28] VITALS: Ht 154.9 cm; Wt 79.4 kg
[~2024-06-28 12:23] MED LIST changes: +DEXTROAMP-AMPHE10 MG PO; +NAPROSYN500 MG PO; +ONDANSETRON ODT4 MG PO; +PANTOPRAZOLE SO20 MG PO; +SUCRALFATE1 GM PO
--- OUTSIDE RECORDS SUMMARY | 2024-06-28 12:30 | XMS ---
PreManage Notification: MARCO A DAVID Security Transition Rn Events No recent Security Events currently on file CRITERIA MET - Group Notification CARE PROVIDERS -, [facility] Dentist: Hvac/R Instructor [facility] PHONE: [phone] -Alejandrina- Dentist: Hvac/R Instructor [facility] Dental [facility] PHONE: [phone] Saad has no Care Guidelines for this patient. Care History Medical/Surgical 10/03/2018 [facility] CASE MANAGEMENT REFERRAL MADE- PATIENT HAS [facility] AND NO PCP. E.D. VISIT COUNT (12 MO.) 2 [facility] TOTAL 2 NOTE: Visits indicate total known visits. ED/UCC VISIT TRACKING (12 MO.) 06/28/2024 12:24 [facility] TYPE: Emergency COMPLAINT: - LT ARM PAIN 12/13/2023 14:38 [facility] TYPE: Emergency COMPLAINT: - POSS DEHYDRATION DIAGNOSES: - Allergy status to other drugs, medicaments and biological substances - Headache, unspecified - Nausea with vomiting, unspecified - Other snf (current) drug therapy INPATIENT VISIT TRACKING (12 MO.) No inpatient visits to display in this time frame [email or web address]
[2024-06-28] MEDS ORDERED: ACETAMINOPHEN 325 MG TAB PO ONE (16:15)
[2024-06-28] MEDS ORDERED: HYDROCODONE/ACETA 7.5/325 TAB PO ONE (16:15)
[2024-06-28] MEDS ORDERED: HYDROCODON-ACE1 EA10 PO (16:21)
[2024-06-28 16:35] VITALS: BP 143/94
== END 2024-06-28 16:35 | disposition home or self-care (01) ==
LOC: ED 12:23
DX: M77.12 Lateral epicondylitis, left elbow (principal); Z88.1 Allergy status to other antibiotic agents; Z88.8 Allergy status to other drugs, medicaments and biological substances
CPT/HCPCS: 99283; A9270

== ENCOUNTER 2025-02-23 06:09 | Emergency (ER) | payer OTHER ==
[~2025-02-23] VITALS: Ht 152.4 cm; Wt 65.9 kg
[~2025-02-23 06:09] MED LIST changes: +HYDROCODON-ACE1 EA10 PO
--- OUTSIDE RECORDS SUMMARY | 2025-02-23 06:16 | XMS ---
PreManage Notification: MARCO A DAVID Security Retention Specialist Events No recent Security Events currently on file CRITERIA MET - Group Notification CARE PROVIDERS -, [facility] Dentist: Banquet Captain [facility] PHONE: [phone] -Alejandrina- Dentist: Banquet Captain [facility] Dental [facility] PHONE: [phone] Saad has no Care Guidelines for this patient. Care History Medical/Surgical 10/03/2018 [facility] CASE MANAGEMENT REFERRAL MADE- PATIENT HAS [place] AND NO PCP. E.D. VISIT COUNT (12 MO.) 2 [facility] TOTAL 2 NOTE: Visits indicate total known visits. ED/UCC VISIT TRACKING (12 MO.) 02/23/2025 06:10 [facility] TYPE: Emergency COMPLAINT: - BACK PAIN 06/28/2024 12:24 [facility] TYPE: Emergency COMPLAINT: - LT ARM PAIN DIAGNOSES: - Allergy status to other antibiotic agents - Allergy status to other drugs, medicaments and biological substances - Lateral epicondylitis, left elbow - Pain in left elbow - Pain in left wrist INPATIENT VISIT TRACKING (12 MO.) No inpatient visits to display in this time frame [email or web address]
[2025-02-23] MEDS ORDERED: HYDROmorphone HCL 1 MG/ML SYR IV PRN (06:30)
[2025-02-23 06:55] LABS: BASOPHILS 0.6 % (0.1-1.2); EOSINOPHILS 1.0 % (0.7-5.8); LYMPHOCYTES 27.3 % (19.3-51.7); MCH 32.2 PG (25.6-32.2); MCHC 35.2 g/dL (32.2-35.5); MCV 91.5 fL (79.4-94.8); MONOCYTES 7.3 % (4.7-12.5); NEUTROPHILS 63.6 % (34.0-71.1); RBC 4.47 M/uL (3.93-5.22)
[2025-02-23 06:59] LABS: ALT (SGPT) 24.0 U/L (14-59); AST (SGOT) 12.0 U/L (15-37); GLOMERULAR FILTRATION RATE,EST 124.0 mL/min (>60); PROTEIN, TOTAL 7.5 g/dL (6.4-8.2); UREA NITROGEN 11.0 mg/dL (7-18)
[2025-02-23 07:19] LABS: BLOOD/HGB, URINE NEGATIVE (Negative); KETONE, URINE NEGATIVE (Negative); LEUK ESTERASE, URINE NEGATIVE (negative); NITRITE, URINE NEGATIVE (negative)
[2025-02-23 07:29] LABS: BACTERIA, URINE 1+ /hpf (negative); CASTS, URINE NONE SEEN \\lpf; CRYSTALS, URINE AMORPHOUS PHOSPH 2+ (0-1+); EPITHELIAL CELLS, URINE SQUAMOUS 1+ /lpf (0-1+); REFLEX CULTURE, URINE No (No)
[2025-02-23] MEDS ORDERED: ONDANSETRON 4 MG TAB ODT SL ONE (08:30)
[2025-02-23] MEDS ORDERED: OXYCODONE/APAP 5/325 TAB PO ONE (08:30)
[2025-02-23] MEDS ORDERED: ONDANSETRON ODT4 MG PO (08:30)
[2025-02-23 08:40] VITALS: BP 131/81
== END 2025-02-23 08:44 | disposition home or self-care (01) ==
LOC: ED 06:09
PROVIDERS: Emergency Medicine
DX: R10.9 Unspecified abdominal pain (principal); M54.6 Pain in thoracic spine; J45.909 Unspecified asthma, uncomplicated; K21.9 Gastro-esophageal reflux disease without esophagitis; Z79.899 Other long term (current) drug therapy; Z88.2 Allergy status to sulfonamides; Z88.8 Allergy status to other drugs, medicaments and biological substances
CPT/HCPCS: 36415; 71045; 74177; 80053; 81001; 83690; 84484; 84703; 85025; 85379; 96374; 96375; 96376; 99284-25; A9270; J1171; J2405; Q9967

== ENCOUNTER 2025-06-29 14:52 | Emergency (ER) | payer OTHER ==
[~2025-06-29] VITALS: Ht 152.4 cm; Wt 86.1 kg
--- OUTSIDE RECORDS SUMMARY | 2025-06-29 14:59 | XMS ---
PreManage Notification: MARCO A DAVID Security Therapeutic Recreation Director Events No recent Security Events currently on file CRITERIA MET - Group Notification CARE PROVIDERS -, [facility] Dentist: Mechanical Integrity Specialist Current [employer] PHONE: [phone] -Alejandrina- Dentist: Mechanical Integrity Specialist [facility] Dental [facility] PHONE: [phone] [facility]: Multi-Specialty Current FAMILY PHONE: Unknown Saad has no Care Guidelines for this patient. Care History Medical/Surgical 10/03/2018 [facility] CASE MANAGEMENT REFERRAL MADE- PATIENT HAS [place] AND NO PCP. E.D. VISIT COUNT (12 MO.) [address] [facility] TOTAL 2 NOTE: Visits indicate total known visits. ED/UCC VISIT TRACKING (12 MO.) 06/29/2025 14:52 [facility] TYPE: Emergency COMPLAINT: - BACK AND ABD PAIN 02/23/2025 06:10 [facility] TYPE: Emergency COMPLAINT: - BACK PAIN DIAGNOSES: - Allergy status to other drugs, medicaments and biological substances - Allergy status to sulfonamides - Gastro-esophageal reflux disease without esophagitis - Other intermediate manager (current) drug therapy - Pain in thoracic spine - Unspecified abdominal pain - Unspecified asthma, uncomplicated INPATIENT VISIT TRACKING (12 MO.) No inpatient visits to display in this time frame [email or web address]
[2025-06-29] MEDS ORDERED: MONTELUKAST SOD10 MG PO (15:04)
[2025-06-29] MEDS ORDERED: KETOROLAC TROMETHAMINE 15 MG/ML VIAL IV ONE (15:15)
[2025-06-29 15:22] LABS: BASOPHILS 0.8 % (0.1-1.2); EOSINOPHILS 4.5 % (0.7-5.8); LYMPHOCYTES 23.0 % (19.3-51.7); MCH 31.7 PG (25.6-32.2); MCHC 34.2 g/dL (32.2-35.5); MCV 92.8 fL (79.4-94.8); MONOCYTES 7.0 % (4.7-12.5); NEUTROPHILS 64.5 % (34.0-71.1); RBC 4.60 M/uL (3.93-5.22)
[2025-06-29 15:42] LABS: ALT (SGPT) 32.0 U/L (14-59); AST (SGOT) 20.0 U/L (15-37); GLOMERULAR FILTRATION RATE,EST 118.0 mL/min (>60); PROTEIN, TOTAL 7.1 g/dL (6.4-8.2); UREA NITROGEN 10.0 mg/dL (7-18)
[2025-06-29] MEDS ORDERED: SODIUM CHLORIDE 0.9% 1,000 ML IV ONE (15:45)
[2025-06-29] MEDS ORDERED: HYDROmorphone HCL 1 MG/ML SYR IV PRN (15:45)
[2025-06-29 15:59] LABS: BLOOD/HGB, URINE NEGATIVE (Negative); KETONE, URINE NEGATIVE (Negative); LEUK ESTERASE, URINE NEGATIVE (negative); NITRITE, URINE NEGATIVE (negative)
[2025-06-29] MEDS ORDERED: CARAFATE1 GM PO (16:35)
[2025-06-29] MEDS ORDERED: LIDOCAINE & ANTACID 35 ML BTL PO ONE (16:45)
[2025-06-29] MEDS ORDERED: HYDROCODONE BIT/ACETAMINOPHEN 5/325 MG 1 TAB HOME.PACK PO ONE (16:45)
[2025-06-29 17:06] VITALS: BP 136/95
== END 2025-06-29 17:04 | disposition home or self-care (01) ==
LOC: ED 14:52
PROVIDERS: Emergency Medicine
DX: R10.9 Unspecified abdominal pain (principal); R11.2 Nausea with vomiting, unspecified; K21.9 Gastro-esophageal reflux disease without esophagitis; J45.909 Unspecified asthma, uncomplicated; Z88.2 Allergy status to sulfonamides; Z88.1 Allergy status to other antibiotic agents
CPT/HCPCS: 36415; 80053; 81003; 84703; 85025; 96361; 96374; 96375; 96376; 99284-25; A9270; J1171; J1885; J2405; J7030

== ENCOUNTER 2025-07-02 19:22 | Emergency (ER) | payer OTHER ==
[~2025-07-02] VITALS: Ht 152.4 cm; Wt 86.1 kg
--- OUTSIDE RECORDS SUMMARY | ~2025-07-02 | XMS | Continuity of Care Document ---
Demographics + + + | Address | [address] | | | [place] [address] | + + + | Preferred Language | Unknown | + + + | Marital Status | Never | + + + | Orthodoxy Affiliation | Unknown | + + + | Race | White | + + + | Ethnic Group | Not or | + + + Author + + + | Author | [facility] | + + + | Organization | [facility] | + + + | Address | [address] | | | [place] [address] | + + + | Phone | | + + + Care Team Providers + + + + | Care Endocrinology Physician Name | Role | Phone | + + + + Unavailable | Unavailable | + + + + Unavailable | Unavailable | + + + + Allergies and Intolerances + + + + + + | date | description | facility | reaction | severity | + + + + + + | 2025-06-29 | | [facility] - | (no reaction) | (no severity) | | 00:00 | Sulfamethoxazol | [facility] | | | + + + + + + | 2025-06-29 | Trimethoprim | [facility] - | (no reaction) | (no severity) | | 00:00 | | [facility] | | | + + + + + + | 2025-06-29 | Ciprofloxacin | [facility] - | (no reaction) | (no severity) | | 00:00 | | [facility] | | | + + + + + + | 2025-06-29 | Trimethoprim | [facility] - | (no reaction) | (no severity) | | 00:00 | | [facility] | | | + + + + + + | 2025-06-29 | | [facility] - | (no reaction) | (no severity) | | 00:00 | Sulfamethoxazol | [facility] | | | + + + + + + | 2025-06-29 | Ciprofloxacin | [facility] - | (no reaction) | (no severity) | | 00:00 | [facility] | | | + + + + + + | 2025-06-29 | Ciprofloxacin | [facility] - | (no reaction) | (no severity) | | 00:00 | | [facility] | | | + + + + + + | 2025-06-29 | Trimethoprim | [facility] - | (no reaction) | (no severity) | | 00:00 | | [facility] | | | + + + + + + | 2025-06-29 | | [facility] - | (no reaction) | (no severity) | | 00:00 | Sulfamethoxazol | [facility] | | | + + + + + + Encounters No information. Functional Status No information. Immunizations No information. Medications + + + + | date | description | facility | + + + + | (no date) | DOXEPIN HCL | [facility] | | | | [facility] | + + + + | (no date) | MONTELUKAST SODIUM | [facility] | | | | [facility] | + + + + | (no date) | CELECOXIB | [facility] | | | | [facility] | + + + + | 2025-06-29 00:00 | SUCRALFATE | [facility] | | | | [facility] | + + + + | (no date) | PANTOPRAZOLE SODIUM | [facility] | | | | [facility] | + + + + | (no date) | SUCRALFATE | [facility] | | | | [facility] | + + + + | (no date) | ALBUTEROL SULFATE | [facility] | | | | [facility] | + + + + | (no date) | AMPHET ASP/AMPHET/D-AMPHET | [facility] | | | | [facility] | + + + + | (no date) | PHENDIMETRAZINE TARTRATE | [facility] | | | | [facility] | + + + + Problems No information. Procedures No information. Results/Labs +--------+--------+ +---------+--------+---------+ | test | date | facility | value | unit | notes | +--------+--------+ +---------+--------+---------+ + + | Result panel 1 | + + + + + +--------+ + + | WBC # Bld | 2025-06-29 | | 5.99 | (missing) | (missing) | | Auto | 15:14:08 | [facility] | | | | + + + +--------+ + + + + | Result panel 2 | + + + + + +--------+ + + | Lymphocytes | 2025-06-29 | | 23.0 | (missing) | (missing) | | NFr Bld | 15:14:08 | [facility] | | | | | Auto | [facility] | | | | + + + +--------+ + + + + | Result panel 3 | + + + + + +-------+ + + | Monocytes | 2025-06-29 | | 7.0 | (missing) | (missing) | | NFr Bld Auto | 15:14:08 | [facility] | | | | + + + +-------+ + + + + | Result panel 4 | + + + + + +-------+ + + | Eosinophil | 2025-06-29 | | 4.5 | (missing) | (missing) | | NFr Bld Auto | 15:14:08 | [facility] | | | | + + + +-------+ + + + + | Result panel 5 | + + + + + +-------+ + + | Basophils | 2025-06-29 | | 0.8 | (missing) | (missing) | | NFr Bld Auto | 15:14:08 | [facility] | | | | + + + +-------+ + + + + | Result panel 6 | + + + + + +--------+ + + | RBC # Bld | 2025-06-29 | | 4.60 | (missing) | (missing) | | Auto | 15:14:08 | [facility] | | | | + + + +--------+ + + + + | Result panel 7 | + + + + + +-------+---------+ + | Glucose | 2025-06-29 | | 110 | mg/dL | (missing) | | SerPl-mCnc | 15:14:08 | [facility] | | | | + + + +-------+---------+ + + + | Result panel 8 | + + + + + +------+---------+ + | BUN | 2025-06-29 | | 10 | mg/dL | (missing) | | SerPl-Cherie | 15:14:08 | [facility] | | | | + + + +------+---------+ + + + | Result panel 9 | + + + + + +--------+---------+ + | Creat | 2025-06-29 | | 0.65 | mg/dL | (missing) | | SerPl-mCnc | 15:14:08 | [facility] | | | | + + + +--------+---------+ + + + | Result panel 10 | + + + + + +-------+ + + | eGFRcr | 2025-06-29 | | 118 | (missing) | (missing) | | SerPlBld | 15:14:08 | [facility] | | | | | CKD-EPI 2020 | [facility] | | | | + + + +-------+ + + + + | Result panel 11 | + + + + + +--------+ + + | Hgb | 2025-06-29 | | 14.6 | (missing) | (missing) | | Bld-mCnc | 15:14:08 | [facility] | | | | + + + +--------+ + + + + | Result panel 12 | + + + + + +---------+ + + | BUN/Creat | 2025-06-29 | | 15.38 | (missing) | (missing) | | SerPl | 15:14:08 | [facility] | | | | + + + +---------+ + + + + | Result panel 13 | + + + + + +-------+ + + | Sodium | 2025-06-29 | | 144 | (missing) | (missing) | | SerPl-sCnc | 15:14:08 | [facility] | | | | + + + +-------+ + + + + | Result panel 14 | + + + + + +-------+ + + | Potassium | 2025-06-29 | | 3.8 | (missing) | (missing) | | SerPl-sCnc | 15:14:08 | [facility] | | | | + + + +-------+ + + + + | Result panel 15 | + + + + + +-------+ + + | Chloride | 2025-06-29 | | 109 | (missing) | (missing) | | SerPl-sCnc | 15:14:08 | [facility] | | | | + + + +-------+ + + + + | Result panel 16 | + + + + + +------+ + + | CO2 | 2025-06-29 | | 28 | (missing) | (missing) | | SerPl-sCnc | 15:14:08 | [facility] | | | | | [facility] | | | | + + + +------+ + + + + | Result panel 17 | + + + + + +--------+ + + | Anion Gap | 2025-06-29 | | 10.8 | (missing) | (missing) | | SerPl | 15:14:08 | [facility] | | | | | Calculated.4 | [facility] | | | | + + + +--------+ + + + + | Result panel 18 | + + + + + +-------+---------+ + | Calcium | 2025-06-29 | | 8.5 | mg/dL | (missing) | | SerPl-mCnc | 15:14:08 | [facility] | | [facility] | | | | + + + +-------+---------+ + + + | Result panel 19 | + + + + + +-------+ + + | Prot | 2025-06-29 | | 7.1 | (missing) | (missing) | | [facility] | 15:14:08 | [facility] | | | | | | | - | | | | | | [facility] | | | | + + + +-------+ + + + + | Result panel 20 | + + + + + +-------+ + + | Albumin | 2025-06-29 | | 3.5 | (missing) | (missing) | | SerPl-mCnc | 15:14:08 | [facility] | | | | + + + +-------+ + + + + | Result panel 21 | + + + + + +-------+ + + | Globulin | 2025-06-29 | | 3.6 | (missing) | (missing) | | Ser-mCnc | 15:14:08 | [facility] | [facility] | | | | + + + +-------+ + + + + | Result panel 22 | + + + + + +--------+ + + | Hct VFr.DF | 2025-06-29 | | 42.7 | (missing) | (missing) | | Bld Auto | 15:14:08 | [facility] | | | | + + + +--------+ + + + + | Result panel 23 | + + + + + +--------+ + + | | 2025-06-29 | | 0.97 | (missing) | (missing) | | Albumin/Glob | 15:14:08 | [facility] | | | | | SerPl | [facility] | | | | + + + +--------+ + + + + | Result panel 24 | + + + + + +-------+---------+ + | Bilirub | 2025-06-29 | | 0.3 | mg/dL | (missing) | | SerPl-mCnc | 15:14:08 | [facility] | [facility] | | | | + + + +-------+---------+ + + + | Result panel 25 | + + + + + +------+ + + | AST | 2025-06-29 | | 20 | (missing) | (missing) | | SerPl-cCnc | 15:14:08 | [facility] | | | [facility] | | | | + + + +------+ + + + + | Result panel 26 | + + + + + +------+ + + | ALT | 2025-06-29 | | 32 | (missing) | (missing) | | SerPl-cCnc | 15:14:08 | [facility] | | | | + + + +------+ + + + + | Result panel 27 | + + + + + +------+ + + | ALP | 2025-06-29 | | 75 | (missing) | (missing) | | SerPl-cCnc | 15:14:08 | [facility] | | | | + + + +------+ + + + + | Result panel 28 | + + + + + +--------+ + + | RBC Auto | 2025-06-29 | | 92.8 | (missing) | (missing) | | | 15:14:08 | [facility] | | | | + + + +--------+ + + + + | Result panel 29 | + + + + + +--------+ + + | MCH RBC Qn | 2025-06-29 | | 31.7 | (missing) | (missing) | | Auto | 15:14:08 | [facility] | | | | + + + +--------+ + + + + | Result panel 30 | + + + + + +--------+ + + | MCHC RBC | 2025-06-29 | | 34.2 | (missing) | (missing) | | Auto-EntMCnc | 15:14:08 | [facility] | | | | + + + +--------+ + + + + | Result panel 31 | + + + + + +-------+ + + | Platelet # | 2025-06-29 | | 210 | (missing) | (missing) | | Bld Auto | 15:14:08 | [facility] | | | | + + + +-------+ + + + + | Result panel 32 | + + + + + +--------+ + + | Neutrophils | 2025-06-29 | | 64.5 | (missing) | (missing) | | NFr Bld | 15:14:08 | [facility] | | | | | Auto | [facility] | | | | + + + +--------+ + + + + | Result panel 33 | + + + + + + + + + | Color Ur | 2025-06-29 | | YELLOW | (missing) | (missing) | | Auto | 15:42:08 | [facility] | | | | + + + + + + + + + | Result panel 34 | + + + + + +---------+ + + | Character | 2025-06-29 | | CLEAR | (missing) | (missing) | | Ur | 15:42:08 | [facility] | | | | + + + +---------+ + + + + | Result panel 35 | + + + + + + + + + | Glucose Ur | 2025-06-29 | | NEGATIVE | (missing) | (missing) | | Ql Strip | 15:42:08 | [facility] | | | | + + + + + + + + + | Result panel 36 | + + + + + + + + + | Bilmarcellaub Ur | 2025-06-29 | | NEGATIVE | (missing) | (missing) | | Ql Strip | 15:42:08 | [facility] | | | | + + + + + + + + + | Result panel 37 | + + + + + + + + + | Ketones Ur | 2025-06-29 | | NEGATIVE | (missing) | (missing) | | Ql Strip | 15:42:08 | [facility] | [facility] | | | | + + + + + + + + + | Result panel 38 | + + + + + +---------+ + + | Sp Ray Ur | 2025-06-29 | | 1.015 | (missing) | (missing) | | Strip | 15:42:08 | [facility] | | | | + + + +---------+ + + + + | Result panel 39 | + + + + + + + + + | Hgshailesh Ur Ql | 2025-06-29 | | NEGATIVE | (missing) | (missing) | | Strip | 15:42:08 | [facility] | | | | + + + + + + + + + | Result panel 40 | + + + + + +-------+ + + | pH Ur Strip | 2025-06-29 | | 6.0 | (missing) | (missing) | | | 15:42:08 | [facility] | | | | + + + +-------+ + + + + | Result panel 41 | + + + + + + + + + | Prot Ur | 2025-06-29 | | NEGATIVE | (missing) | (missing) | | Strip-mCnc | 15:42:08 | [facility] | [facility] | | | | + + + + + + + + + | Result panel 42 | + + + + + + + + + | | 2025-06-29 | | NORMAL | (missing) | (missing) | | Urobilinogen | 15:42:08 | [facility] | | | | | Ur | [facility] | | | | + + + + + + + + + | Result panel 43 | + + + + + + + + + | Nitrite Ur | 2025-06-29 | | NEGATIVE | (missing) | (missing) | | Ql Strip | 15:42:08 | [facility] | [facility] | | | | + + + + + + + + + | Result panel 44 | + + + + + + + + + | Leukocyte | 2025-06-29 | | NEGATIVE | (missing) | (missing) | | esterase Ur | 15:42:08 | [facility] | | | | | Ql Strip | [facility] | | | | + + + + + + + + + | Result panel 45 | + + + + + + + + + | HCG Ur Ql | 2025-06-29 | | NEGATIVE | (missing) | (missing) | | | 15:42:08 | [facility] | | | | + + + + + + + Social History +--------+ + + | date | description | facility | +--------+ + + Vital Signs + + + +---------+ | date | measurement | value | units | + + + +---------+ | 2025-06-29 00:00 | BMI | 37.1 | kg/m2 | + + + +---------+ | 2025-06-29 00:00 | BP_diastolic | 95 | mmHg | + + + +---------+ | 2025-06-29 00:00 | BP_systolic | 136 | mmHg | + + + +---------+ | 2025-06-29 00:00 | heart_rate | 91 | /min | + + + +---------+ | 2025-06-29 00:00 | height_metric | 152.4 | cm | + + + +---------+ | 2025-06-29 00:00 | height_standard | 60 | in | + + + +---------+ | 2025-06-29 00:00 | o2_saturation | 98 | % | + + + +---------+ | 2025-06-29 00:00 | respiration_rate | 15 | /min | + + + +---------+ | 2025-06-29 00:00 | | 97.7 | F | | | temperature_standar | | | | | d | | | + + + +---------+ | 2025-06-29 00:00 | weight_metric | 86.1 | kg | + + + +---------+ | 2025-06-29 00:00 | weight_standard | 189.818 | lb | + + + +---------+"
[~2025-07-02 19:22] MED LIST changes: +CARAFATE1 GM PO; +MONTELUKAST SOD10 MG PO
--- OUTSIDE RECORDS SUMMARY | 2025-07-02 19:30 | XMS ---
PreManage Notification: MARCO A DAVID Security Infection Prevention Specialist Events No recent Security Events currently on file CRITERIA MET - Group Notification - [facility] - 2 Visits in 30 Days CARE PROVIDERS -, [facility]+ Dentist: [facility] PHONE: [phone] -Alejandrina- Dentist: [facility] PHONE: [phone] [facility] Current FAMILY PHONE: Unknown Saad has no Care Guidelines for this patient. Care History Medical/Surgical 10/03/2018 [facility] CASE MANAGEMENT REFERRAL MADE- PATIENT HAS [place] AND NO PCP. E.D. VISIT COUNT (12 MO.) 3 [facility] TOTAL 3 NOTE: Visits indicate total known visits. ED/UCC VISIT TRACKING (12 MO.) 07/02/2025 19:23 [facility] TYPE: Emergency COMPLAINT: - ABDOMINAL PAIN 06/29/2025 14:52 [facility] TYPE: Emergency COMPLAINT: - BACK AND ABD PAIN DIAGNOSES: - Allergy status to other antibiotic agents - Allergy status to sulfonamides - Gastro-esophageal reflux disease without esophagitis - Low back pain, unspecified - Nausea with vomiting, unspecified - Unspecified abdominal pain - Unspecified asthma, uncomplicated 02/23/2025 06:10 [facility] TYPE: Emergency COMPLAINT: - BACK PAIN DIAGNOSES: - Allergy status to other drugs, medicaments and biological substances - Allergy status to sulfonamides - Gastro-esophageal reflux disease without esophagitis - Other custodial (current) drug therapy - Pain in thoracic spine - Unspecified abdominal pain - Unspecified asthma, uncomplicated INPATIENT VISIT TRACKING (12 MO.) No inpatient visits to display in this time frame [email or web address]
[2025-07-02] MEDS ORDERED: MORPHINE SULFATE 4 MG/ML VIAL IV ONE (19:45)
[2025-07-02] MEDS ORDERED: DEXAMETHASONE SOD PHOS 10 MG/ML VIAL IV ONE (19:45)
[2025-07-02] MEDS ORDERED: SODIUM CHLORIDE 0.9% 1,000 ML IV ONE (19:45)
[2025-07-02 19:54] LABS: BASOPHILS 0.7 % (0.1-1.2); EOSINOPHILS 3.1 % (0.7-5.8); LYMPHOCYTES 23.1 % (19.3-51.7); MCH 31.1 PG (25.6-32.2); MCHC 33.9 g/dL (32.2-35.5); MCV 91.7 fL (79.4-94.8); MONOCYTES 6.6 % (4.7-12.5); NEUTROPHILS 66.3 % (34.0-71.1); RBC 4.70 M/uL (3.93-5.22)
[2025-07-02 20:05] LABS: BLOOD/HGB, URINE TRACE-I (Negative); KETONE, URINE NEGATIVE (Negative); LEUK ESTERASE, URINE NEGATIVE (negative); NITRITE, URINE NEGATIVE (negative)
[2025-07-02 20:15] LABS: EPITHELIAL CELLS, URINE SQUAMOUS 1+ /lpf (0-1+)
[2025-07-02 20:16] LABS: BACTERIA, URINE RARE /hpf (negative); CASTS, URINE NONE SEEN \\lpf; CRYSTALS, URINE NONE SEEN (0-1+); REFLEX CULTURE, URINE No (No)
[2025-07-02 20:17] LABS: ALT (SGPT) 41.0 U/L (14-59); AST (SGOT) 23.0 U/L (15-37); GLOMERULAR FILTRATION RATE,EST 119.0 mL/min (>60); PROTEIN, TOTAL 7.2 g/dL (6.4-8.2); UREA NITROGEN 11.0 mg/dL (7-18)
[2025-07-02] MEDS ORDERED: TRAMADOL HCL50 MG PO (21:30)
[2025-07-02] MEDS ORDERED: ONDANSETRON ODT8 MG PO (21:30)
[2025-07-02] MEDS ORDERED: KETOROLAC TROMETHAMINE 30 MG/ML VIAL IV ONE (21:30)
[2025-07-02 21:41] VITALS: BP 140/85
[2025-07-02] MEDS ORDERED: ONDANSETRON 4 MG HOME.PACK SL ONE (21:45)
[2025-07-02] MEDS ORDERED: TRAMADOL HCL 50 MG HOME.PACK PO ONE (21:45)
== END 2025-07-02 22:07 | disposition home or self-care (01) ==
LOC: ED 19:22
PROVIDERS: Family Medicine
DX: R10.11 Right upper quadrant pain (principal); J45.909 Unspecified asthma, uncomplicated; K21.9 Gastro-esophageal reflux disease without esophagitis; Z79.899 Other long term (current) drug therapy; Z88.1 Allergy status to other antibiotic agents
CPT/HCPCS: 36415; 74177; 80053; 81001; 83690; 84703; 85025; 96374; 96375; 99284-25; A9270; J1100; J1885; J2270; J2405; J7030; Q9967